=== PATIENT | male | born 1945 | race Caucasian/White ===

== ENCOUNTER 2020-07-23 13:30 | Outpatient (RCR) | payer MEDICARE, OTHER, SELFPAY ==
[2020-05-01 12:36] VITALS: BP 138/60; PULSE 72; RESP 16; TEMP 36.3; O2SAT 97
--- NOTE | 2020-05-26 10:17 | PCCPR ---
ABSENT TODAY FOR MD APPOINTMENT
--- NOTE | 2020-06-19 18:19 | PCCPR ---
Absent-had to take to doctors appt in [facility]
== END 2020-07-23 18:50 | disposition home or self-care (01) ==
LOC: ANHCPREHAB 13:30
PROVIDERS: PCP Internal Medicine
DX: Z95.1 Presence of aortocoronary bypass graft (principal); I50.89 Other heart failure
CPT/HCPCS: 93798

== ENCOUNTER → 2021-06-24 11:32 | Outpatient (CLI) | payer MEDICARE, OTHER, SELFPAY ==
--- NOTE | ~2021-06-24 | XR_ITS ---
EXAMINATION: XR mandible min 4V EXAM DATE: 06/24/2021 11:54 INDICATION: R68.84 - Jaw pain left side, fall . Initial encounter. TECHNIQUE: Frontal, steep frontal, bilateral oblique projections of the mandible. There is no prior study for comparison. FINDINGS: There are no acute mandible fractures or dislocations identified. There is no subcutaneous gas. The soft tissue is unremarkable. Dental hardware. IMPRESSION: No acute osseous findings. Reviewed, dictated and finalized at location B. IMPRESSION: No acute osseous findings.
--- NOTE | ~2021-06-24 | XR_ITS ---
EXAMINATION: XR knee RT min 4V DATE: 06/24/2021 11:54 INDICATION: Right knee pain. TECHNIQUE: 4 views of right knee were obtained. COMPARISON: None. FINDINGS: There is varus angulation at the knee. No fracture. There is moderate osteoarthritis of med ial compartment and mild osteoarthritis of lateral and patellofemoral compartments. There is a small knee joint effusion. There are surgical clips in the medial lower leg. IMPRESSION: 1. Moderate right knee osteoarthritis. 2. Small right knee joint effusion. Reviewed, dictated and finalized at location A.
== END ==
PROVIDERS: PCP Internal Medicine; Visit Provider Internal Medicine
DX: M17.11 Unilateral primary osteoarthritis, right knee (principal); R68.84 Jaw pain; M25.461 Effusion, right knee
CPT/HCPCS: 70110; 73564

== ENCOUNTER → 2022-03-16 12:20 | Outpatient (CLI) | payer MEDICARE, OTHER, SELFPAY ==
--- NOTE | ~2022-03-16 | XR_ITS ---
XR chest 2V DATE: 03/16/2022 12:43 INDICATION: Cough TECHNIQUE: PA and lateral views COMPARISON: 07/05/2019 PA and lateral chest FINDINGS: Status post sternotomy. Cardiomegaly. Aortic unfolding. Left-sided pacemaker device with leads overlying right atrium and coronary sinus. No hilar or mediastinal enlargement is evident. Bilateral hyperinflation. No pulmonary infiltrate or consolidation, pleural effusion or pulmonary vas cular congestion or pneumothorax is detected. Osteopenia. Degenerative spurring of the thoracic spine. IMPRESSION: Status post sternotomy Cardiomegaly Aortic unfolding Left-sided pacemaker device Bilateral hyperinflation Reviewed, dictated and finalized at location B.
== END ==
PROVIDERS: PCP Family Medicine; Visit Provider Family Medicine
DX: R05.9 Cough, unspecified (principal); I51.7 Cardiomegaly; Z95.0 Presence of cardiac pacemaker
CPT/HCPCS: 71046

== ENCOUNTER 2022-05-02 11:07 | Emergency (ER) | payer MEDICARE, OTHER, SELFPAY ==
[2022-05-02 11:16] VITALS: BP 116/87; PULSE 76; RESP 20; TEMP 36.8; O2SAT 99
--- NOTE | 2022-05-02 11:27 | ED.GENADULT ---
HPI - General Adult General Chief complaint: Upper Respiratory Infection Stated complaint: covid positive Source: patient Mode of arrival: ambulatory Limitations: no limitations History of Present Illness HPI narrative: Patient presents for evaluation of sick symptoms. He indicates he tested positive for COVID in [place] 2 days ago. He got on a flight and came home. Reports sore throat, cough, fatigue, body aches. No fever, chills, nausea, vomiting, diarrhea, shortness of breath. No recent sick contacts to his knowledge. He has never had COVID in the past. He has received COVID vaccination. He is not taking any medications to assist with his symptoms. He is requesting a script for Paxlovid. No additional complaints or concerns Related Data Home Medications Medication Instructions Recorded Confirmed potassium chloride 10 mEq 10 meq PO BID 01/28/20 04/12/22 tablet,extended release pravastatin 40 mg tablet 40 mg PO DAILY 01/28/20 04/12/22 digoxin 250 mcg (0.25 mg) tablet 250 mcg PO .every other day 03/31/20 04/12/22 mirabegron 25 mg tablet,extended 25 mg PO DAILY 06/23/21 04/12/22 release 24 hr (Myrbetriq) silodosin 4 mg capsule 4 mg PO DAILY 06/23/21 04/12/22 terbinafine HCl 250 mg tablet 250 mg PO DAILY 01/11/22 04/12/22 furosemide 20 mg tablet 20 mg PO QAM 03/16/22 04/12/22 Allergies Allergy/AdvReac Type Severity Reaction Status Date / Time No Known Allergies Allergy Verified 04/12/22 13:45 Review of Systems Review of Systems: CONSTITUTIONAL: Reports fatigue. Denies fever, chills, or sweats. EYES: Denies visual changes, redness, or discharge. ENT: Reports sore throat and congestion. Denies otalgia. CARDIOVASCULAR: Denies chest pain, palpitations, or edema. RESPIRATORY: Reports cough. Denies SOB. GASTROINTESTINAL: Denies abdominal pain, nausea, vomiting, or diarrhea. GENITOURINARY: Denies dysuria or hematuria. SKIN: Denies rash or itching. MUSCULOSKELETAL:Reports generalized body aches NEUROLOGIC: Denies headache, numbness, dizziness, or weakness. PSYCHIATRIC: Denies anxiety or depression. [facility] Past Medical History Medical History Adverse effect of lovastatin Arthritis Atrial fibrillation, transient Benign essential hypertension Benign non-nodular prostatic hyperplasia with lower urinary tract symptoms BPH loc w urin obs/LUTS Bruising Cardiac defibrillator in place Cardiomyopathy, unspecified Carpal tunnel syndrome of right wrist Closed fracture of multiple ribs of left side with routine healing Closed fracture of transverse process of axis COPD (chronic obstructive pulmonary disease) Depression Depression with anxiety Dysthymic Enlarged prostate without lower urinary tract symptoms (luts) Gait disturbance Hearing loss Knee effusion, right 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 Memory loss Myofascial muscle pain Non-sustained ventricular tachycardia JESSICA (obstructive sleep apnea) Other and unspecified hyperlipidemia Pacemaker Right knee DJD Right knee pain Right shoulder pain Short-term memory loss Sleep disorder breathing SOB (shortness of breath) on exertion Stage 3a chronic kidney disease Status post pneumothorax Syncope Urinary frequency Urinary hesitancy Weakness of distal arms and legs Weight gain Wheezing Surgical History Surgical History History of open heart surgery History of quadruple bypass October of 2019 Family History Family History Mother Depression Cancer Sibling Family history of gastrointestinal disorder Depression Acute myocardial infarction Cancer Father Cerebrovascular accident Heart disease Other Arthritis Hypertension Social History Social History Smoking status: Former smoker [place]
== END 2022-05-02 11:31 | disposition home or self-care (01) ==
PROVIDERS: Emergency Provider Nurse Practitioner; PCP Family Medicine
DX: U07.1 COVID-19 (principal); I10 Essential (primary) hypertension; Z95.810 Presence of automatic (implantable) cardiac defibrillator; J44.9 Chronic obstructive pulmonary disease, unspecified; Z79.01 Long term (current) use of anticoagulants; G47.33 Obstructive sleep apnea (adult) (pediatric)
CPT/HCPCS: 99213; G0463

== ENCOUNTER 2022-05-25 12:54 | Outpatient (CLI) | payer MEDICARE, OTHER, SELFPAY ==
--- NOTE | ~2022-05-25 | XR_ITS ---
EXAMINATION: [id number] DATE: 05/25/2022 13:29 INDICATION: Pleurodynia. Previous broken ribs. TECHNIQUE: A frontal inspiratory view of the chest and 3 views of the left ribs were obtained. COMPARISON: Chest radiograph dated 03/16/2022 FINDINGS: Again seen are multiple old left-sided rib fractures. No definitively new or acute appearing rib frac tures identified. Unchanged stenting along the left hemidiaphragm and mild left basilar opacities and favor atelectasis/scarring over pneumonia. Right lung remains clear. Heart size is normal. Median st ernotomy wires and mediastinal surgical clips are seen, likely from prior coronary artery bypass ivana ting. There is also unchanged left atrial appendage occlusion clip. Dual lead pacemaker/AICD seen wit h leads projecting over the expected locations of the apex of the right ventricle and overlying the l eft ventricle likely having traversed the coronary sinus. IMPRESSION: 1. Redemonstration of multiple chronic left rib fractures. No acute rib fractures identified. 2. Unchanged mild opacities at the left lower lung zone and favor atelectasis/scarring over pneumonia . Reviewed, dictated and finalized at location A. IMPRESSION: 1. Redemonstration of multiple chronic left rib fractures. No acute rib fractur es identified. 2. Unchanged mild opacities at the left lower lung zone and favor atelectasis/s carring over pneumonia.
--- NOTE | ~2022-05-25 | XR_ITS ---
XR thoracic spine 3V 05/25/2022 13:28 Indication: Back pain. Previous spine fracture. Procedure: 3 views thoracic spine. Comparison: No prior studies for comparison. Findings: Vertebral body heights are maintained. There is normal alignment. There are median sternoto my wires. Pacemaker leads are present. There is multilevel disc degenerative disc disease. No paraspi nal soft tissue abnormality. Cardiomegaly. There is focal saccular appearance to the posterior heart margin on the lateral view. Impression: 1: Moderate thoracic spondylosis. No acute abnormality identified. 2: Unusual appearance to the posterior margin of the heart on the lateral view. Consider correlation with CT. Reviewed, dictated and finalized at location B. Impression: 1: Moderate thoracic spondylosis. No acute abnormality identified. 2: Unusual appearance to the posterior margin of the heart on the lateral view. Consider correlation with CT.
== END 2022-05-25 12:55 | disposition home or self-care (01) ==
PROVIDERS: PCP Family Medicine; Visit Provider Family Medicine
DX: R07.81 Pleurodynia (principal); M54.9 Dorsalgia, unspecified; M47.814 Spondylosis without myelopathy or radiculopathy, thoracic region
CPT/HCPCS: 71101; 72072

== ENCOUNTER 2022-12-06 07:56 | Outpatient (CLI) | payer MEDICARE, OTHER, SELFPAY ==
--- NOTE | ~2022-12-06 | CT_ITS ---
CT of the Abdomen and Pelvis: Indication: Abdominal distention Technique: 2.5 mm axial scans were obtained through the abdomen and pelvis following intravenous adm inistration of 100 cc of Omnipaque 350. Dose reduction technique was used on this scan by utilizing a utomated exposure control and iterative reconstruction technique. The dose-length product (DLP) was 4 59.96 mGy-cm. Findings: Scans through the lung bases demonstrate cardiomegaly with pacemaker device. There is mild bibasilar pleural scarring. Small to moderate hiatal hernia noted. Small hepatic cysts are present. There are probable 2 small cystic-appearing lesions in the pancreati c body/tail. The spleen, gallbladder, adrenals and kidneys are within normal limits. There are athero sclerotic calcifications of the aorta. No lymphadenopathy. No bowel obstruction or bowel wall thickening. There is no evidence to suggest acute appendicitis. Images through the pelvis were performed. Urinary bladder unremarkable. Prostate gland is markedly en larged. Trace pelvic ascites. Impression: Trace pelvic ascites, uncertain etiology. Markedly enlarged prostate gland. 2 small probable cystic lesions in the pancreas. Consider follow-up exam in 6-12 months. Cardiomegaly with pacemaker device. [id number] hiatal hernia. Reviewed, dictated and finalized at location . Impression: Trace pelvic ascites, uncertain etiology. Markedly enlarged prostate gland. 2 small probable cystic lesions in the pancreas. Consider follow-up exam in 6-1 2 months. Cardiomegaly with pacemaker device. Yvxez-ba-txhbxzht hiatal hernia.
[2022-12-06 08:21] LABS: Estimated Glomerular Filt Rate 58
== END 2022-12-06 07:57 | disposition home or self-care (01) ==
PROVIDERS: PCP Internal Medicine; Visit Provider Nurse Practitioner
DX: R10.84 Generalized abdominal pain (principal); R14.0 Abdominal distension (gaseous); N40.0 Benign prostatic hyperplasia without lower urinary tract symptoms; I51.7 Cardiomegaly; K44.9 Diaphragmatic hernia without obstruction or gangrene; K86.9 Disease of pancreas, unspecified
CPT/HCPCS: 74177; Q9967

== ENCOUNTER 2023-01-13 01:01 | Day surgery (SDC) | payer MEDICARE, OTHER, SELFPAY ==
[2022-12-07 13:47] VITALS: BMI 25.1
[2022-12-29 13:29] VITALS: BMI 25.1
--- NOTE | 2023-01-12 14:10 | PM.HPGS ---
History of Present Illness History of Present Illness Consent: Risks, benefits, and alternatives have been discussed and questions answered. Patient agrees to proceed with procedure. Chief complaint: hx colon polyps Narrative: Winston Valles is a 77 year old male referred for colon cancer screening. He had adenomatous polyps removed at that time his last 2 colonoscopies, 1 in 2012 and Again in 2018 Review of Systems Review of Systems: All systems reviewed & are unremarkable except as noted in HPI and below PMFSH Past Medical History Medical History Adverse effect of lovastatin Arthritis Atrial fibrillation, transient Benign essential hypertension Benign non-nodular prostatic hyperplasia with lower urinary tract symptoms BPH loc w urin obs/LUTS Bruising Cardiac defibrillator in place Cardiomyopathy, unspecified Carpal tunnel syndrome of right wrist Closed fracture of multiple ribs of left side with routine healing Closed fracture of transverse process of axis COPD (chronic obstructive pulmonary disease) Depression Depression with anxiety Dysthymic Enlarged prostate without lower urinary tract symptoms (luts) Gait disturbance Hearing loss Knee effusion, right Left flank pain half-way current use of anticoagulant Memory loss Myofascial muscle pain Non-sustained ventricular tachycardia JESSICA (obstructive sleep apnea) Other and unspecified hyperlipidemia Pacemaker Right knee DJD Right knee pain Right shoulder pain Short-term memory loss Sleep disorder breathing SOB (shortness of breath) on exertion Stage 3a chronic kidney disease Status post pneumothorax Syncope Urinary frequency Urinary hesitancy Weakness of distal arms and legs Weight gain Wheezing Surgical History Surgical History History of open heart surgery History of quadruple bypass October of 2019 Family History Family History Mother Depression Cancer Sibling Family history of gastrointestinal disorder Depression Acute myocardial infarction Cancer Father Cerebrovascular accident Heart disease Other Arthritis Hypertension Social History Social History Smoking status: Former smoker Tobacco type: cigarettes Second hand tobacco smoke exposure: No Smoking end date: 08/29/79 Alcohol intake: current Alcohol use details: rarely Substance use type: does not use Living arrangements: with family Gender identity (if verbalized by the patient): Male Spiritual care concerns: No Meds Home Medications and Allergies Home Medications Medication Instructions Recorded Confirmed Type potassium chloride 10 mEq 10 meq PO BID 01/28/20 12/29/22 History tablet,extended release pravastatin 40 mg tablet 40 mg PO DAILY 01/28/20 12/29/22 History digoxin 250 mcg (0.25 mg) tablet 250 mcg PO 3XW 03/31/20 12/29/22 History silodosin 4 mg capsule 4 mg PO DAILY 06/23/21 12/29/22 History terbinafine HCl 250 mg tablet 250 mg PO DIRECTED 01/11/22 12/29/22 History furosemide 20 mg tablet 20 mg PO QAM 03/16/22 12/29/22 History aspirin 81 mg tablet 81 mg PO DAILY 12/07/22 12/29/22 History cetirizine 10 mg tablet (Zyrtec) 10 mg PO DAILY 12/07/22 12/29/22 History ferrous sulfate 325 mg (65 mg 325 mg PO DAILY 12/07/22 12/29/22 History iron) tablet fluticasone fur. 200 mcg-umeclid 1 inh inhalation DAILY 12/07/22 12/29/22 History 62.5 mcg-vilant 25 mcg inhalat.powder (Trelegy Ellipta) multivitamin with minerals-folic 1 tablet PO DAILY 12/07/22 12/29/22 History acid 0.4 mg tablet vibegron 75 mg tablet (Gemtesa) 75 mg PO DAILY 12/07/22 12/29/22 History losartan 25 mg tablet 25 mg PO DAILY #90 tabs 12/29/22 12/29/22 Rx Allergies Allergy/AdvReac Type Severity Reaction Status Date / Time No Known Allergies All
[2023-01-13 06:45] VITALS: BP 123/81; PULSE 69; RESP 20; TEMP 36.2; O2SAT 98
[2023-01-13] MEDS: LACTATED RINGERS 1,000 ML 150 ML IV CONT (06:58)
--- NOTE | 2023-01-13 07:51 | WPDANESEPPF ---
Anes - Initial Pre Proc Eval Procedure: Operation Date: 01/13/23 08:00 Proposed Procedures p Colonoscopy - Ryland Martinez MD Date/Time: 01/13/23 07:51 Surgeon: Ryland Martinez MD Pre Op Diagnosis: hx colon polyps Patient Data Age: 77 Gender: M Height: 1.78 m Weight: 77.1 kg Last Vital Signs Temp 97.1 F L 01/13/23 06:45 Pulse 69 01/13/23 06:45 Resp 20 01/13/23 06:45 BP 123/81 01/13/23 06:45 Pulse Ox 98 01/13/23 06:45 O2 Del Method Room Air 01/13/23 06:45 Allergies Allergy/AdvReac Type Severity Reaction Status Date / Time No Known Allergies Allergy Verified 01/13/23 06:42 Home Medications Medication Instructions Recorded Confirmed Type potassium chloride 10 mEq 10 meq PO BID 01/28/20 12/29/22 History tablet,extended release pravastatin 40 mg tablet 40 mg PO DAILY 01/28/20 12/29/22 History digoxin 250 mcg (0.25 mg) tablet 250 mcg PO 3XW 03/31/20 12/29/22 History silodosin 4 mg capsule 4 mg PO DAILY 06/23/21 12/29/22 History terbinafine HCl 250 mg tablet 250 mg PO DIRECTED 01/11/22 12/29/22 History furosemide 20 mg tablet 20 mg PO QAM 03/16/22 12/29/22 History aspirin 81 mg tablet 81 mg PO DAILY 12/07/22 12/29/22 History cetirizine 10 mg tablet (Zyrtec) 10 mg PO DAILY 12/07/22 12/29/22 History ferrous sulfate 325 mg (65 mg 325 mg PO DAILY 12/07/22 12/29/22 History iron) tablet fluticasone fur. 200 mcg-umeclid 1 inh inhalation DAILY 12/07/22 12/29/22 History 62.5 mcg-vilant 25 mcg inhalat.powder (Trelegy Ellipta) multivitamin with minerals-folic 1 tablet PO DAILY 12/07/22 12/29/22 History acid 0.4 mg tablet vibegron 75 mg tablet (Gemtesa) 75 mg PO DAILY 12/07/22 12/29/22 History losartan 25 mg tablet 25 mg PO DAILY #90 tabs 12/29/22 12/29/22 Rx Patient hx anesthesia problems: none Family hx anesthesia problems: none Results Review: All pre-operative results and documents have been reviewed as part of the pre-operative evaluation. [facility] Past Medical History Medical History Adverse effect of lovastatin Arthritis Atrial fibrillation, transient Benign essential hypertension Benign non-nodular prostatic hyperplasia with lower urinary tract symptoms BPH loc w urin obs/LUTS Bruising Cardiac defibrillator in place Cardiomyopathy, unspecified Carpal tunnel syndrome of right wrist Closed fracture of multiple ribs of left side with routine healing Closed fracture of transverse process of axis COPD (chronic obstructive pulmonary disease) Depression Depression with anxiety Dysthymic Enlarged prostate without lower urinary tract symptoms (luts) Gait disturbance Hearing loss Knee effusion, right 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 Memory loss Myofascial muscle pain Non-sustained ventricular tachycardia JESSICA (obstructive sleep apnea) Other and unspecified hyperlipidemia Pacemaker Right knee DJD Right knee pain Right shoulder pain Short-term memory loss Sleep disorder breathing SOB (shortness of breath) on exertion Stage 3a chronic kidney disease Status post pneumothorax Syncope Urinary frequency Urinary hesitancy Weakness of distal arms and legs Weight gain Wheezing Surgical History Surgical History History of open heart surgery History of quadruple bypass October of 2019 Family History Family History Mother Depression Cancer Sibling Family history of gastrointestinal disorder Depression Acute myocardial infarction Cancer Father Cerebrovascular accident Heart disease Other Arthritis Hypertension Social History Social History Smoking status: Former smoker Tobacco type: cigarettes Second hand tobacco smoke exposure: No Smoking end date: 08/29/79 Alcohol intake: current Alcohol use deta
[2023-01-13 08:16] VITALS: BP 98/61; PULSE 60; RESP 20; O2SAT 98
[2023-01-13 08:26] VITALS: BP 94/64; PULSE 62; RESP 18; O2SAT 98
[2023-01-13 08:36] VITALS: BP 101/70; PULSE 60; RESP 18; O2SAT 98
== END 2023-01-13 08:46 | disposition home or self-care (01) ==
PROVIDERS: PCP Internal Medicine; Visit Provider Internal Medicine Gastroenterology
PROC: 0DJD8ZZ Inspection of Lower Intestinal Tract, Via Natural or Artificial Opening Endoscopic (ICD-10-PCS; CPT 45378; principal; 2023-01-13 08:00)
DX: Z12.11 Encounter for screening for malignant neoplasm of colon (principal); Z86.010 Personal history of colon polyps; K57.30 Diverticulosis of large intestine without perforation or abscess without bleeding; K64.8 Other hemorrhoids; I48.20 Chronic atrial fibrillation, unspecified; I42.9 Cardiomyopathy, unspecified; I12.9 Hypertensive chronic kidney disease with stage 1 through stage 4 chronic kidney disease, or unspecified chronic kidney disease; N18.31 Chronic kidney disease, stage 3a; J44.9 Chronic obstructive pulmonary disease, unspecified; M17.11 Unilateral primary osteoarthritis, right knee; G47.33 Obstructive sleep apnea (adult) (pediatric); F41.9 Anxiety disorder, unspecified; F32.A Depression, unspecified; Z95.1 Presence of aortocoronary bypass graft; Z79.01 Long term (current) use of anticoagulants; Z95.810 Presence of automatic (implantable) cardiac defibrillator; Z87.891 Personal history of nicotine dependence; Z79.82 Long term (current) use of aspirin
CPT/HCPCS: G0105; J2704; J7120

== ENCOUNTER 2024-02-09 14:10 | Outpatient (CLI) | payer MEDICARE, OTHER, SELFPAY ==
--- NOTE | ~2024-02-09 | XR_ITS ---
Right Knee Technique: AP, lateral, and sunrise views were obtained. Clinical History: Pain Findings: No fracture or dislocation is seen. There is medial compartment narrowing. There is moderat e tricompartmental osteophyte formation.. Vascular calcifications are present. No joint effusion is s een. Impression: Moderate tricompartmental degenerative change, with significant medial compartment narrowing. Reviewed, dictated and finalized at location M. Impression: Moderate tricompartmental degenerative change, with significant medial compartm ent narrowing.
--- NOTE | ~2024-02-09 | XR_ITS ---
Left Knee Technique: AP, lateral, and sunrise views were obtained. Clinical History: Pain Findings: No fracture or dislocation is seen. Osseous alignment is anatomic. No degenerative change o f the patellofemoral compartment noted. Soft tissues are unremarkable. No joint effusion is seen. Impression: Minimal degenerative change of the patellofemoral compartment. Reviewed, dictated and finalized at location . Impression: Minimal degenerative change of the patellofemoral compartment.
== END 2024-02-09 14:11 | disposition home or self-care (01) ==
PROVIDERS: PCP Internal Medicine; Visit Provider Nurse Practitioner
DX: M25.561 Pain in right knee (principal); M25.562 Pain in left knee; R93.6 Abnormal findings on diagnostic imaging of limbs
CPT/HCPCS: 73562

== ENCOUNTER 2024-05-14 14:31 | Outpatient (CLI) | payer MEDICARE, OTHER, SELFPAY ==
[2024-05-14 18:27] LABS: Basophils Percent Auto 0.4 % (0.2-1.2); Eosinophils Percent Auto 0.7 % (0-4.4); Hematocrit 40.6 % (42.0-52.0); Hemoglobin 12.9 g/dL (14.0-18.0); Immature Granulocyte Absolute 0.01 K/mm3 (0.00-0.031); Immature Granulocyte Percent A 0.2 % (0-0.5); Lymphocytes Absolute Auto 0.83 K/mm3 (0.9-3.2); Lymphocytes Percent Auto 14.9 % (18.3-44.2); Mean Corpuscular HGB Conc 31.8 g/dl (32-36); Mean Corpuscular Hemoglobin 30.5 pg (26-34); Monocytes Absolute Auto 0.6 K/mm3 (0.1-0.6); Monocytes Percent Auto 10.1 % (2.6-8.5); Neutrophils Absolute Auto 4.1 K/mm3 (1.3-6.7); Neutrophils Percent Auto 73.7 % (45.5-73.1); Platelet Count Result 142 k/mm3 (150-375); Red Blood Count 4.23 M/mm3 (4.6-6.20); Red Cell Distribution Width 14.1 % (11.5-14.5); White Blood Count 5.6 K/mm3 (4.5-10.0)
[2024-05-14 18:58] LABS: Alanine Aminotransferase 30 U/L (6-50); Albumin Level 4.1 g/dL (3.5-5.1); Alkaline Phosphatase 63 U/L (38-126); Anion Gap 7 mmol/L (4-12); Aspartate Amino Transferase 43 U/L (17-59); Bilirubin,Total 0.7 mg/dL (0.2-1.3); Blood Urea Nitrogen 50 mg/dL (9-20); Carbon Dioxide 33 mmol/L (22-30); Chloride 99 mmol/L (98-107); Cholesterol 118 mg/dL (0-200); Estimated Glomerular Filt Rate 45; Glucose 94 mg/dL (65-110); HDL Direct 38 mg/dL; Potassium 3.9 mmol/L (3.4-5.0); Sodium 139 mmol/L (137-145); Triglycerides 141 mg/dL (<150)
[2024-05-14 19:09] LABS: LDL Cholesterol Direct 59 mg/dL
== END 2024-05-14 14:32 | disposition home or self-care (01) ==
LOC: ANHGOSHLAB 14:34
PROVIDERS: PCP Internal Medicine
DX: E70.0 Classical phenylketonuria (principal); I10 Essential (primary) hypertension; I25.10 Atherosclerotic heart disease of native coronary artery without angina pectoris; I25.5 Ischemic cardiomyopathy; I47.29 Other ventricular tachycardia; I48.21 Permanent atrial fibrillation; I50.23 Acute on chronic systolic (congestive) heart failure; R55 Syncope and collapse; I08.3 Combined rheumatic disorders of mitral, aortic and tricuspid valves
CPT/HCPCS: 36415; 80053; 80061; 85025

== ENCOUNTER 2024-06-11 10:45 | Outpatient (CLI) | payer MEDICARE, OTHER, SELFPAY ==
[2024-06-11 14:45] LABS: NT Pro B Type Natriuretic Pept 4610 pg/mL (19.9-100)
[2024-06-11 14:46] LABS: Anion Gap 6 mmol/L (4-12); Blood Urea Nitrogen 36 mg/dL (9-20); Calcium 9.1 mg/dL (8.4-10.2); Carbon Dioxide 29 mmol/L (22-30); Chloride 104 mmol/L (98-107); Estimated Glomerular Filt Rate 49; Glucose 91 mg/dL (65-110); Potassium 4.9 mmol/L (3.4-5.0); Sodium 139 mmol/L (137-145)
== END 2024-06-11 10:46 | disposition home or self-care (01) ==
PROVIDERS: PCP Internal Medicine
DX: E78.00 Pure hypercholesterolemia, unspecified (principal); I11.0 Hypertensive heart disease with heart failure; I50.22 Chronic systolic (congestive) heart failure; I25.10 Atherosclerotic heart disease of native coronary artery without angina pectoris; I35.1 Nonrheumatic aortic (valve) insufficiency; I36.1 Nonrheumatic tricuspid (valve) insufficiency; I47.29 Other ventricular tachycardia; I48.21 Permanent atrial fibrillation; R55 Syncope and collapse
CPT/HCPCS: 36415; 80048; 83880

== ENCOUNTER 2024-06-25 10:18 | Outpatient (CLI) | payer MEDICARE, OTHER, SELFPAY ==
[2024-06-25 14:58] LABS: Creatinine Urine 98.4 mg/dL
[2024-06-25 15:22] LABS: Albumin Level 4.2 g/dL (3.5-5.1); Anion Gap 7 mmol/L (4-12); Blood Urea Nitrogen 45 mg/dL (9-20); Calcium 9.2 mg/dL (8.4-10.2); Carbon Dioxide 29 mmol/L (22-30); Chloride 104 mmol/L (98-107); Estimated Glomerular Filt Rate 53; Glucose 90 mg/dL (65-110); Phosphorus 3.4 mg/dL (2.5-4.5); Potassium 4.9 mmol/L (3.4-5.0); Sodium 140 mmol/L (137-145)
[2024-06-25 15:35] LABS: Total Protein Urine Random < 5 mg/dL; Ur Ttl Prot Creatinine Ratio < 0.05 mg/mg (0-0.20)
[2024-06-25 15:54] LABS: Complement C3 90 mg/dL (88-165)
[2024-06-27 01:58] LABS: Creatinine, Random Urine 92 mg/dL (20-320); Total Prot/Creat ratio mg/mg 0.217 (0.025-0.148); Total Protein/Creatinine Ratio 217 mg/g creat (25-148)
[2024-06-27 03:24] LABS: Protein, Total 6.2 g/dL (6.1-8.1)
[2024-06-28 08:13] LABS: Alpha 1 Globulin 0.3 g/dL (0.2-0.3); Alpha 2 Globulin 0.6 g/dL (0.5-0.9); Beta 1 Globulin 0.4 g/dL (0.4-0.6); Gamma Globulin 0.6 g/dL (0.8-1.7)
[2024-06-29 15:14] LABS: ANCA Screen NEGATIVE (NEGATIVE)
== END 2024-06-25 10:19 | disposition home or self-care (01) ==
PROVIDERS: PCP Internal Medicine; Visit Provider Internal Medicine Nephrology
DX: I12.9 Hypertensive chronic kidney disease with stage 1 through stage 4 chronic kidney disease, or unspecified chronic kidney disease (principal); N18.32 Chronic kidney disease, stage 3b
CPT/HCPCS: 36415; 80069; 82570; 83520; 84155; 84156; 84165; 84166; 86036; 86038; 86039; 86160; 86225

== ENCOUNTER 2024-06-26 11:43 | Outpatient (CLI) | payer MEDICARE, OTHER, SELFPAY ==
--- NOTE | ~2024-06-26 | US_ITS ---
Renal-Bladder ultrasound Clinical History: Chronic kidney disease Technique: Real-time sonographic imaging of the kidneys and urinary bladder was performed. Findings: The right kidney measures 10.0 cm in length and the left kidney measures 10.0 cm. There is no hydronephrosis or renal calculus identified. Renal cortical echogenicity is within normal limits. Small left renal cyst present. The urinary bladder is minimally distended at the time of this exam. No intraluminal echoes are ident ified. No abnormal wall thickening is seen. Impression: No significant abnormality. Reviewed, dictated and finalized at location . Impression: No significant abnormality.
== END 2024-06-26 11:44 | disposition home or self-care (01) ==
PROVIDERS: PCP Internal Medicine Nephrology; Visit Provider Internal Medicine Nephrology
DX: N18.32 Chronic kidney disease, stage 3b (principal)
CPT/HCPCS: 76775

== ENCOUNTER 2024-07-06 15:05 | Outpatient (CLI) | payer MEDICARE, OTHER, SELFPAY ==
--- NOTE | ~2024-07-06 | CT_ITS ---
Non-contrast CT scan of the Abdomen and Pelvis Clinical indication: BPH Technique: 2.5 mm axial scans were obtained through the abdomen and pelvis without intravenous or or al contrast. Dose reduction technique was used on this scan by utilizing automated exposure control a nd iterative reconstruction technique. The dose-length product (DLP) was 418.43 mGy-cm. COMPARISON: 12/06/2022 Findings: Images through the lung bases reveal probable cardiomegaly. Small hiatal hernia. There is no evidence of renal or ureteral calculi. The kidneys and the ureters are nondilated. The liver, spleen, pancreas, gallbladder, and adrenals appear normal. There are atherosclerotic calci fications of the aorta. Infrarenal abdominal aorta measures up to 3 cm in maximum diameter. There is no evidence of bowel obstruction. Images through the pelvis were performed. There is no evidence of ascites or lymphadenopathy. Urinary bladder unremarkable. Prostate gland is enlarged, and indents the bladder base. There is degenerativ e spondylosis throughout the lumbar spine. Impression: Enlarged prostate gland. Infrarenal abdominal aorta measures up to 3 cm in diameter. Small hiatal hernia. Reviewed, dictated and finalized at [facility]. FILLER Impression: Enlarged prostate gland. Infrarenal abdominal aorta measures up to 3 cm in diameter. Small hiatal hernia.
== END 2024-07-06 15:06 | disposition home or self-care (01) ==
PROVIDERS: PCP Internal Medicine; Visit Provider Urology
DX: N40.1 Benign prostatic hyperplasia with lower urinary tract symptoms (principal)
CPT/HCPCS: 74176

== ENCOUNTER 2024-08-09 11:23 | Outpatient (CLI) | payer MEDICARE, OTHER, SELFPAY ==
[2024-08-09 13:55] LABS: Free T4 Free Thyroxine 1.11 ng/dL (0.78-2.19)
[2024-08-10 07:25] LABS: HCG Tumor Marker <5 mIU/mL (<5); LH 4.1 mIU/mL (1.6-15.2); Progesterone <0.5 ng/mL (<1.4)
[2024-08-15 00:37] LABS: Estrogen 118 pg/mL (< OR = 404)
[2024-08-15 12:38] LABS: Testosterone Free 44.4 pg/mL (30.0-135.0); Testosterone Total 300 ng/dL (250-1100)
== END 2024-08-09 11:24 | disposition home or self-care (01) ==
PROVIDERS: PCP Internal Medicine; Visit Provider Nurse Practitioner
DX: N62 Hypertrophy of breast (principal); N64.4 Mastodynia
CPT/HCPCS: 36415; 82672; 83002; 84144; 84402; 84403; 84439; 84443; 84702

== ENCOUNTER 2024-10-30 15:26 | Outpatient (CLI) | payer MEDICARE, OTHER, SELFPAY ==
[2024-10-30 18:56] LABS: Albumin Level 4.6 g/dL (3.5-5.1); Anion Gap 9 mmol/L (4-12); Blood Urea Nitrogen 44 mg/dL (9-20); Calcium 9.4 mg/dL (8.4-10.2); Carbon Dioxide 32 mmol/L (22-30); Chloride 95 mmol/L (98-107); Estimated Glomerular Filt Rate 47; Glucose 129 mg/dL (65-110); Phosphorus 4.3 mg/dL (2.5-4.5); Potassium 4.6 mmol/L (3.4-5.0); Sodium 136 mmol/L (137-145)
[2024-10-30 18:57] LABS: Creatinine Urine 16.9 mg/dL; Total Protein Urine Random 10 mg/dL; Ur Ttl Prot Creatinine Ratio 0.59 mg/mg (0-0.20)
[2024-10-30 19:04] LABS: Parathyroid Intact 147.6 pg/mL (14.5-75.2)
[2024-10-30 19:40] LABS: Vitamin D 25 Hydroxy 65.5 ng/mL
== END 2024-10-30 15:27 | disposition home or self-care (01) ==
LOC: ANHGOSHLAB 15:28
PROVIDERS: PCP Internal Medicine; Visit Provider Internal Medicine Nephrology
DX: I12.9 Hypertensive chronic kidney disease with stage 1 through stage 4 chronic kidney disease, or unspecified chronic kidney disease (principal); N18.31 Chronic kidney disease, stage 3a; N25.81 Secondary hyperparathyroidism of renal origin; E55.9 Vitamin D deficiency, unspecified
CPT/HCPCS: 36415; 80069; 82306; 82570; 83970; 84156

== ENCOUNTER 2025-02-20 12:33 | Outpatient (CLI) | payer MEDICARE, OTHER, SELFPAY ==
[2025-02-20 19:16] LABS: Anion Gap 9 mmol/L (4-12); Blood Urea Nitrogen 38 mg/dL (9-20); Calcium 9.1 mg/dL (8.4-10.2); Carbon Dioxide 26 mmol/L (22-30); Chloride 102 mmol/L (98-107); Estimated Glomerular Filt Rate 50; Glucose 124 mg/dL (65-110); Potassium 4.8 mmol/L (3.4-5.0); Sodium 137 mmol/L (137-145)
[2025-02-20 19:32] LABS: Total Protein Urine Random 7 mg/dL; Ur Ttl Prot Creatinine Ratio 0.54 mg/mg (0-0.20)
[2025-02-20 19:43] LABS: Parathyroid Intact 78.3 pg/mL (14.5-75.2)
== END 2025-02-20 12:34 | disposition home or self-care (01) ==
LOC: ANHGOSHLAB 12:34
PROVIDERS: PCP Internal Medicine; Visit Provider Internal Medicine Nephrology
DX: I12.9 Hypertensive chronic kidney disease with stage 1 through stage 4 chronic kidney disease, or unspecified chronic kidney disease (principal); N18.31 Chronic kidney disease, stage 3a; N25.81 Secondary hyperparathyroidism of renal origin
CPT/HCPCS: 36415; 80069; 82570; 83970; 84156

== ENCOUNTER 2025-03-05 15:33 | Outpatient (CLI) | payer MEDICARE, OTHER, SELFPAY ==
--- NOTE | ~2025-03-05 | US_ITS ---
EXAM: RENAL ULTRASOUND HISTORY: I12.9 - Hypertensive chronic kidney disease with stage 1 ... COMPARISON: 06/26/20[address] examination of the abdomen and pelvis dated 07/06/2024 FINDINGS: RIGHT KIDNEY: 9.7 x 4.2 x 5.1 cm. The parenchyma of the right kidney is increased in echogenicity and thin in caliber. No hydronephrosis or renal calculi. LEFT KIDNEY: 10.3 x 6.4 x 5.2 cm No hydronephrosis or renal calculi. The parenchyma of the left kidney is increased in echogenicity and thin in caliber. BLADDER: The prostate gland is markedly enlarged extending into the base of the bladder, consistent w ith patient's known BPH history. No additional diagnostic bladder images were obtained IMPRESSION: No hydronephrosis or renal calculi. Findings suggesting medical renal disease. Findings consistent with patient's known prostatic hyperplasia, as detailed above Reviewed, dictated and finalized at location A. IMPRESSION: No hydronephrosis or renal calculi. Findings suggesting medical renal disease. Findings consistent with patient's known prostatic hyperplasia, as detailed abo ve
== END 2025-03-05 15:34 | disposition home or self-care (01) ==
LOC: MICIMG 15:37
PROVIDERS: PCP Internal Medicine; Visit Provider Internal Medicine Nephrology
DX: I12.9 Hypertensive chronic kidney disease with stage 1 through stage 4 chronic kidney disease, or unspecified chronic kidney disease (principal); N18.31 Chronic kidney disease, stage 3a; N25.81 Secondary hyperparathyroidism of renal origin; E55.9 Vitamin D deficiency, unspecified; R10.9 Unspecified abdominal pain
CPT/HCPCS: 76775

== ENCOUNTER 2025-03-19 08:46 | Outpatient (CLI) | payer MEDICARE, OTHER, SELFPAY ==
--- OUTSIDE RECORDS SUMMARY | 2025-03-19 08:49 | XMS_ITS | Clinical Summary ---
Author Organization [facility] Address [address] [place] [address] Care Team Providers Care Rigging Helper Name Role Phone Octavio Downey MD Primary Care Provider + Octavio Downey MD Unavailable [phone] Cookie Voss MD Unavailable [phone] Fred Hussein MD Unavailable [phone] Allergies No known active allergies Medications furosemide (LASIX) 40 mg tablet Take 1 tablet (40 mg total) by mouth daily Active pravastatin (PRAVACHOL) 40 mg tablet Take 1 tablet (40 mg total) by mouth nightly Active multivitamin capsule Take 1 capsule by mouth daily Active ferrous sulfate 325 mg (65 mg of elemental iron) tabletIndicatio ns:Iron Deficiency Anemia Take 1 tablet (325 mg total) by mouth daily with breakfast Active silodosin (RAPAFLO) 4 mg capsule Take 1 capsule (4 mg total) by mouth nightly Active citalopram (CeleXA) 20 mg tablet Take 1 tablet (20 mg total) by mouth daily Active ipratropium-alb uteroL (DUO-NEB) 0.5-2.5 mg/3 mL nebulizer solution Take 3 mL by nebulization every 6 (six) hours as needed for wheezing or shortness of breath 3 Active albuterol HFA (PROVENTIL HFA,VENTOLIN HFA,PROAIR HFA) 90 mcg/actuation inhaler Inhale 2 puffs every 6 (six) hours as needed for wheezing Active aspirin 81 mg enteric coated tablet Take 1 tablet (81 mg total) by mouth daily 90 tablet 3 Active cetirizine (ZyrTEC) 10 mg tablet Take 1 tablet (10 mg total) by mouth daily as needed for allergies 30 tablet 3 Active midodrine (PROAMATINE) 10 mg tabletIndicatio ns:Symptomatic Orthostatic Hypotension Take 1 tablet (10 mg total) by mouth 2 (two) times a day after breakfast and lunch 60 tablet 3 Active bumetanide (BUMEX) 2 mg tablet Take 1 tablet (2 mg total) by mouth daily Active spironolactone (ALDACTONE) 25 mg tablet Take 1 tablet (25 mg total) by mouth daily Active dutasteride (AVODART) 0.5 mg capsule 1 capsule (0.5 mg total) 4 Active Active Problems Problem Noted Date Diagnosed Date Physical deconditioning 03/15/2023 COPD exacerbation 03/14/2023 Severe malnutrition 03/14/2023 Physical debility 03/14/2023 Moderate malnutrition 03/04/2023 Sepsis without acute organ dysfunction 3 Acute respiratory failure with hypoxia 3 Systolic congestive heart failure 03/03/2023 BPH (benign prostatic hyperplasia) 03/03/2023 Decreased mobility 03/03/2023 Depression 03/03/2023 Chronic atrial fibrillation 03/03/[address] 02/26/2020 Overview (03/03/2023): [facility] 3369-40Q [id number] Implanted 02/26/20 Dr Childs RV: [facility] 7122Q SN:[id number] 02/26/20 LV: [facility] 1458Q SN:[id number] 02/26/20 JESSICA (obstructive sleep apnea) 04/25/2019 Overview (03/03/2023): 03/16 sleep study: JESSICA Essential hypertension 06/07/2017 Pure hypercholesterolemia 06/07/2017 Overview (03/17/2018): Overview: 01/12 Cholesterol 163 HDL 47 LDL 100 triglyceride 79, normal CMP, on lovastatin 20 mg daily Resolved Problems Problem Noted Date Diagnosed Date Resolved Date Gait disorder 10/22/2020 03/03/2023 Abnormal EKG 06/08/2017 03/03/2023 Overview (03/17/2018): Overview: 06/14 EKG: SR at 68, RSR' in V1, T-wave inversions V1-V4, QT 420 Dilated cardiomyopathy 06/08/201703/03 Overview (03/17/2018): Overview: 06/14 Echo: EF 45%, basal septal/inferior HK, severe AXEL, moderate MR, mild- moderate TR, mild AI, RVSP 37 06/14 Stress nuclear 6:00--96% maximal heart rate, no ischemia, inferior attenuation (small/mild), EF 57%, exercise tolerance 100% predicted Nonrheumatic aortic valve insufficiency 06/08/2017 03/03/2023 Non-rheumatic mitral regurgitation 06/08/2017 03/03/2023 Nonsustained ventricular tachycardia 06/07/2017 03/03/2023 Overview (03/17/2018): Overview: 05/15 Holter x24 hrs: SR at 71, range 57-106, occasional PACs, rare PVCs, 12 beat VT at 120, slightly dizzy correlated with PVCs Syncope 06/07/2017 03/03/2023 Overview (03/17/2018): Overview: 1959 brief syncope on abrupt standing 2013 brief presyncope & fall on standing 05/15 brief presyncope & fall while walking up stairs in stands at [place] after 2 beers 06/14 Event recorder x 30 days: Baseline SR at 73 with PAC & PVC; no symptoms reported Encounters Date Type Department Care Team Description 01/16/2025 2:04 PM CDT - 01/16/2025 11:59 PM CDT Hospital Encounter [facility] Diagnostic Imaging [address] [place] [id number] Pulmonary emphysema, unspecified emphysema type (HCC) Discharge Disposition: Discharge to home or self care 12/20/2024 11:59 AM CDT - 12/20/2024 11:59 PM CDT Hospital Encounter [facility] Imaging and Radiology [address] [place] [address] Other nonspecific abnormal finding of lung field Discharge Disposition: Discharge to home or self care from Last 3 Months Surgical History Surgery Date Site/Laterality Comments AR UNLISTED PROCEDURE ABDOME N PERITONEUM & OMENTUM Hernia Repair - twice (Added by TW Conv) HERNIA REPAIR HEMORROIDECTOMY INSERT / REPLACE / REMOVE PACEMAKER Medical History Medical History Date Comments Personal history of other en docrine, nutritional and metabolic disease History of hyperlipi demia - (Added by TW Conv) Personal history of other di seases of the circulatory system History of hypertension - (A dded by TW Conv) Personal history of other en docrine, nutritional and metabolic disease History of high chol esterol - (Added by TW Conv) Hypertension Atrial fibrillation (HCC) COPD (chronic obstructive pu lmonary disease) (HCC) Depression Arthritis Cataract CHF (congestive heart failure) (HCC) Sleep apnea Dysphagia Family History Medical History Relation Name Comments Heart disease Father Family history of cardiac disorder - (Added by TW Conv) Hypertension Father Family history of hypertension - (Added by TW Conv) Arthritis Mother Family history of arthritis - (Added by TW Conv) Relation Name Status Comments Father Mother Social History Tobacco Use Types Packs/Day Years Used Date Smoking Tobacco: Former Smokeless Tobacco: Never Alcohol Use Standard Drinks/Week Comments No 0 (1 standard drink = 0.6 oz pur e alcohol) Social Connection and Isolat ion Panel [NHANES] Answer Date Recorded In a typical week, how many times do you talk on the phone with family, friends, or neighbors? More than three times a week 03/16/2023 How often do you get togethe r with friends or relatives? More than three times a week 03/16/2023 How often do you attend chur or yarsanism services? Never 03/16/2023 Do you belong to any clubs o r organizations such as anabaptism groups, unions, fraternal or athletic groups, or school groups? No 03/16/2023 Attends Club or Organization Meetings Not on angela e 03/16/2023 Are you , , di vorced, , never , or living with a partner? 03/16/2023 AUDIT-C Answer Date Recorded Q1: How often do you have a drink containing alcohol? Never 12/19/2023 Q2: How many drinks containi ng alcohol do you have on a typical day when you are drinking? Patient does not drink Q3: How often do you have si x or more drinks on one occasion? Never 12/19/2023 Overall Financial Resource Strain (CARDIA) Answe r Date Recorded How hard is it for you to pa y for the very basics like food, housing, medical care, and heating? Not hard at all 03/16/2023 PHQ-2 Answer Date Recorded Patient Health Questionnaire-2 Score 0 03/24/2023 Hunger Vital Sign Answer Date Recorded Within the past 12 months, y ou worried that your food would run out before you got the money to buy more. Never true 03/16/20 23 Within the past 12 months, t he food you bought just didn't last and you didn't have money to get more. Never true 03/16/2023 PRAPARE - Transportation Answer Date Re corded In the past 12 months, has l ack of transportation kept you from medical appointments or from getting medications? No 02/27 In the past 12 months, has l ack of transportation kept you from meetings, work, or from getting things needed for daily living? No 03/24/2023 Housing Stability Vital Sign Answer Ranjith e Recorded In the last 12 months, was t here a time when you were not able to pay the mortgage or rent on time? No 03/16/2023 In the last 12 months, how many places have you lived? 1 03/16/2023 In the last 12 months, was t here a time when you did not have a steady place to sleep or slept in a chcf (including now)? No 03/16/2023 Personal Safety Answer Date Recorded Have you ever been in or are you currently in a harmful physical or emotional relationship or is someone making you feel afraid or unsafe? Denies 12/19/2023 Sex and Gender Information Value Date Recorded Sex Assigned at Not on file Legal Sex Male 1:18 AM CHOCOLATE MOLDER Gender Identity Not on file Sexual Orientation Not on file Obstetrics History Last Filed Vital Signs Vital Sign Reading Time Taken Comments Blood Pressure 98/68 12/19/2023 11:33 AM CDT Pulse 62 12/19/2023 11:33 AM CDT Temperature 36.7 C (98.1 F) 09/09/2023 10:37 AM CHOCOLATE MOLDER Respiratory Rate 23 12/19/2023 11:33 AM CDT Oxygen Saturation 98% 12/19/2023 11:33 AM CDT Inhaled Oxygen Concentration - - Weight 74.8 kg (165 lb) 12/19/2023 10:09 AM CDT Height 177.8 cm (5' 10) 12/19/2023 10:09 AM CDT Body Mass Index 23.68 12/19/2023 10:09 AM CDT Plan of Treatment Health Maintenance Due Date Last Done Comments DTaP/Tdap/Td Vaccine (1 - Tdap) 1956 Hepatitis B Screening 1961 Well Visit 65+ 2008 Pneumococcal vaccine 65+ (2 of 2 - PCV) 10/27/2018 0 10/27/2017, 05/11/2010 Zoster Vaccine (2 of 2) 12/24/2018 10/29/2018 Depression Screening 03/14/2024 03/14/2023, 03/14/20 23 Covid-19 Vaccine ( season) 2024, 09/29/2020 Fall Risk Assessment 07/13/2024 07/13/2023 Influenza Vaccine (Season Ended) 2025 Abdominal Aortic Aneurysm (AAA) Screen Completed , 05/19/2019 Medical Devices Implanted Type Area Injury/Safety Hazard Assessment Device Identifier Shelf Expiration Date Model / Serial / Lot Pacemaker-02/10 Implanted:01/27 (Quantity not on file) Pacemaker Left: Chest Procedures Procedure Name Priority Date/Time Associated Diagnosis Comments XR CHEST PA LATERAL 2 VIEWS Schedule Routine, Read Routine (OP Routine) 01/16/2025 2:16 PM CDT Pulmonary emphysema, unspecified emphysema type (HCC) CT CHEST WO CONTRAST Schedule Routine, Read Routine (OP Routine) 12/20/2024 12:14 PM CDT Other nonspecific abnormal finding of lung field CT ABDOMEN PELVIS W CONTRAST ED 09/09/2023 12:58 PM CHOCOLATE MOLDER from Last 3 Months or Most Recently Relevant to Health Maintenance Results * XR Chest PA Lateral 2 Views (01/16/2025 2:16 PM CDT) Anatomical Region Laterality Modality Body, Chest N/A Computed Radiogr aphy 01/16/2025 2:18 PM CDT Impressions 01/16/2025 2:18 PM CDT COPD. Electronically signed by: Major Mena M.D. Narrative 01/16/2025 2:18 PM CDT EXAMINATION: XR CHEST PA LATERAL 2 VIEWS HISTORY: The patient is an 79-year-old male who presents with a history of COPD. Comparison made with the previous study dated 01/10/2024. TECHNIQUE: PA and lateral view of the chest. FINDINGS: Borderline cardiomegaly with aortic atherosclerosis. There is slight haziness of the vascular markings. No focal consolidation. Procedure Note Maojr Mena MD - 01/16/2025 EXAMINATION: XR CHEST PA LATERAL 2 VIEWS HISTORY: The patient is an 79-year-old male who presents with a history of COPD. Comparison made with the previous study dated 01/10/2024. TECHNIQUE: PA and lateral view of the chest. FINDINGS: Borderline cardiomegaly with aortic atherosclerosis. There is slight haziness of the vascular markings. No focal consolidation. IMPRESSION: COPD. Electronically signed by: Major Mena M.D. Quan Casas MD IMG XR PROCEDURES Estella l Result * CT Chest WO Contrast (12/20/2024 12:14 PM CDT) Anatomical Region Laterality Modality Body N/A Computed Tomogra phy 12/20/2024 2:13 PM CDT Impressions 12/20/2024 2:13 PM CDT 1. Near complete resolution of the tree-in-bud nodularity in the right lower lobe. Next line 2. No change in a partially calcified left upper lobe nodule/broncholith. Electronically signed by: Adrián Pepper M.D. Narrative 12/20/2024 2:13 PM CDT EXAMINATION: CT CHEST WO CONTRAST HISTORY: ABNORMAL LUNG FINDINGS FINDINGS: Emphysema. No change in a 9 mm left upper lobe pulmonary nodule with punctate calcification. Near resolution of the previously seen nodularity in the right lower lobe, with very minimal residual tree-in-bud nodularity. No pleural effusion or pneumothorax. Heart size is enlarged. Coronary artery calcifications. Cardiac leads terminate in the right atrium and right ventricle and coronary sinus. Median sternotomy change. Subcentimeter aortopulmonary lymph node is unchanged. Gynecomastia. Low-density liver lesions are unchanged, likely cysts. No acute or suspicious osseous abnormality. Procedure Note Adrián Pepper MD - 12/20/2024 EXAMINATION: CT CHEST WO CONTRAST HISTORY: ABNORMAL LUNG FINDINGS FINDINGS: Emphysema. No change in a 9 mm left upper lobe pulmonary nodule with punctate calcification. Near resolution of the previously seen nodularity in the right lower lobe, with very minimal residual tree-in-bud nodularity. No pleural effusion or pneumothorax. Heart size is enlarged. Coronary artery calcifications. Cardiac leads terminate in the right atrium and right ventricle and coronary sinus. Median sternotomy change. Subcentimeter aortopulmonary lymph node is unchanged. Gynecomastia. Low-density liver lesions are unchanged, likely cysts. No acute or suspicious osseous abnormality. IMPRESSION: 1. Near complete resolution of the tree-in-bud nodularity in the right lower lobe. Next line 2. No change in a partially calcified left upper lobe nodule/broncholith. Electronically signed by: Adrián Pepper M.D. Quan Casas MD IMG CT PROCEDURES Estella l Result * CT Abdomen Pelvis W Contrast (09/09/2023 12:58 PM CHOCOLATE MOLDER) Anatomical Region Laterality Modality Body N/A Computed Tomogra phy 09/09/2023 1:09 PM CHOCOLATE MOLDER Impressions 09/09/2023 1:09 PM CHOCOLATE MOLDER 1. Large left rectus abdominis hematoma measuring 8.8 x 5.4 x 9.0 cm with asymmetric enlargement of the left abdominal oblique musculature likely representing additional foci of hemorrhage. 2. Findings suggestive of congestive heart failure to include cardiomegaly, moderate right pleural effusion, ascites, and mild anasarca. 3. Enlarged prostate. Consider PSA. 4. Moderately sized hiatal hernia. 5. Chronic or incidental findings as above. Electronically signed by: Albert Brown II, D.O. Narrative 09/09/2023 1:09 PM CHOCOLATE MOLDER EXAMINATION: CT ABDOMEN PELVIS W CONTRAST DATE: 09/09/2023 12:55 PM HISTORY: Left lower quadrant pain. COMPARISON: None. TECHNIQUE: Transaxial computed tomographic images of the abdomen and pelvis were obtained after the administration of 65 mL of Optiray 350 intravenously. Multiplanar coronal and sagittal images were reformatted. FINDINGS: Moderately sized right pleural effusion with associated passive atelectasis. There is cardiomegaly with partially visualized AICD leads. Moderately sized hiatal hernia. Stomach is unremarkable. There is diffuse hepatic steatosis. Small simple cyst in the right hepatic lobe. The spleen and adrenal glands are unremarkable. Gallbladder is decompressed. 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 Kidneys are unremarkable. No hydroureteronephrosis. Unopacified bladder is unremarkable. Prostate is enlarged. Consider PSA. There is mild anasarca and mild ascites. Large stool burden throughout the colon. Appendix not definitively visualized. Small bowel is unremarkable as seen. No acute osseous abnormality. No suspicious lytic or sclerotic lesions. Mild multilevel endplate changes in the visualized spine. Enlarged heterogeneous slightly hyperdense appearance of the left rectus abdominis muscle measuring 8.8 x 5.4 x 9.0 cm. Asymmetric enlargement of the left abdominal oblique musculature also likely represents intramuscular hemorrhage. Procedure Note Albert Brown II, - 09/09/2023 EXAMINATION: CT ABDOMEN PELVIS W CONTRAST DATE: 09/09/2023 12:55 PM HISTORY: Left lower quadrant pain. COMPARISON: None. TECHNIQUE: Transaxial computed tomographic images of the abdomen and pelvis were obtained after the administration of 65 mL of Optiray 350 intravenously. Multiplanar coronal and sagittal images were reformatted. FINDINGS: Moderately sized right pleural effusion with associated passive atelectasis. There is cardiomegaly with partially visualized AICD leads. Moderately sized hiatal hernia. Stomach is unremarkable. There is diffuse hepatic steatosis. Small simple cyst in the right hepatic lobe. The spleen and adrenal glands are unremarkable. Gallbladder is decompressed. 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 Kidneys are unremarkable. No hydroureteronephrosis. Unopacified bladder is unremarkable. Prostate is enlarged. Consider PSA. There is mild anasarca and mild ascites. Large stool burden throughout the colon. Appendix not definitively visualized. Small bowel is unremarkable as seen. No acute osseous abnormality. No suspicious lytic or sclerotic lesions. Mild multilevel endplate changes in the visualized spine. Enlarged heterogeneous slightly hyperdense appearance of the left rectus abdominis muscle measuring 8.8 x 5.4 x 9.0 cm. Asymmetric enlargement of the left abdominal oblique musculature also likely represents intramuscular hemorrhage. IMPRESSION: 1. Large left rectus abdominis hematoma measuring 8.8 x 5.4 x 9.0 cm with asymmetric enlargement of the left abdominal oblique musculature likely representing additional foci of hemorrhage. 2. Findings suggestive of congestive heart failure to include cardiomegaly, moderate right pleural effusion, ascites, and mild anasarca. 3. Enlarged prostate. Consider PSA. 4. Moderately sized hiatal hernia. 5. Chronic or incidental findings as above. Electronically signed by: Pepe Moe IIORivera Kelly العلي MD IMG CT PROCEDURES Final Result from Last 3 Months or Most Recently Relevant to Health Maintenance Insurance MEDICARE [id number] MEDICARE [facility] MEDICARE FOR LIFE MEDICARE Advance Directives For more information, please contact: [phone] Documents on File Type Date Recorded Patient Chair Springer Expl anation ADVANCE DIRECTIVE 03/16/2023 3:19 PM POWER OF DENTAL TECHNOLOGY ADVISOR-MEDICAL ADVANCE DIRECTIVE 03/08/2023 5:06 PM POWER OF DENTAL TECHNOLOGY ADVISOR-MEDICAL Power of Track Moving Machine Operator 03/04/2023 11:54 AM * Full Code (Latest Code Status on File) Date Activated Date Inactivated Comments 12/19/2023 10:02 AM 12/19/2023 3:43 PM * Full Code Date Activated Date Inactivated Comments 03/15/2023 9:01 AM 03/24/2023 2:30 PM * Full Code Date Activated Date Inactivated Comments 03/03/2023 11:01 AM 03/15/2023 8:57 AM Care Teams Rigging Helper Relationship Specialty Start Date End Date Octavio Downey MD [address] [place] [address] PCP - General Internal Medicine 03/03/23 Octavio Downey MD [address] [facility] [address] [place] [address] Referring Physician Internal Medicine 03/14/23 [place] [id number] [facility] [address] [place] [address] Consulting Physician Pulmonary Disease 03/14/23 Fred Hussein MD [address] [facility] [address] [place] [address] Consulting Physician Cardiology 03/14/23
--- OUTSIDE RECORDS SUMMARY | 2025-03-19 08:49 | XMS_ITS | Encounter Summary ---
Author Organization [facility] Address [address] [place] [address] Phone Care Team Providers Care Formal Waiter/Waitress Name Role Phone John Lin MD Primary Care Provider [phone] Octavio Downey MD Primary Care Provider + Octavio Downey MD Unavailable [phone] Cookie Voss MD Unavailable [phone] Fred Hussein MD Unavailable [phone] Encounter Details Date Type Department Care Team (Late st Contact Info) Description 09/18/2019 Orders Only [facility] [address] [place] [address] Scanning, Provider Social History Tobacco Use Types Packs/Day Years Used Date Smoking Tobacco: Former Smokeless Tobacco: Never Alcohol Use Standard Drinks/Week Comments No 0 (1 standard drink = 0.6 oz pur e alcohol) Sex and Gender Information Value Date Recorded Sex Assigned at Not on file Legal Sex Male 1:18 AM SPEEDER FRAME TENDER Gender Identity Not on file Sexual Orientation Not on file documented as of this encounter Plan of Treatment Not on file documented as of this encounter Procedures Procedure Name Priority Date/Time Associated Diagnosis Comments SCAN - OTHER ORDERS 09/18/2019 documented in this encounter Results * SCAN - OTHER ORDERS (09/18/2019) us Provider Scanning Final Result documented in this encounter Visit Diagnoses Not on filedocumented in this encounter Additional Health Concerns Infection Onset Date Last Indicated Resolved Time COVID: Suspected 03/09/2023 03/09/2023 03/09/2023 4:24 PM CDT documented as of this encounter Care Teams Formal Waiter/Waitress Relationship Specialty Start Date End Date John Lin MD [address] [place] [address] PCP - General 12/15/16 03/02/23 Octavio Downey MD [address] [place] [address] PCP - General Internal Medicine 03/03/23 Octavio Downey MD [address] [place] [address] Referring Physician Internal Medicine 03/14/23 [place] [address] [place] [address] Consulting Physician Pulmonary Disease 03/14/23 Fred Hussein MD [address] [facility] [address] [place] [address] Consulting Physician Cardiology 03/14/23 documented as of this encounter
--- OUTSIDE RECORDS SUMMARY | 2025-03-19 08:49 | XMS_ITS | Referral Summary ---
Author Organization [facility] Address [address] [place] [address] Care Team Providers Care Certified Athletic Trainer Name Role Phone Octavio Downey MD Primary Care Provider + Octavio Downey MD Unavailable [phone] Cookie Voss MD Unavailable [phone] Fred Hussein MD Unavailable [phone] Encounters Date Type Department Care Team Description 01/16/2025 2:04 PM CDT - 01/16/2025 11:59 PM CDT Hospital Encounter [facility] Diagnostic Imaging [id number] [place] [address] Pulmonary emphysema, unspecified emphysema type (HCC) Discharge Disposition: Discharge to home or self care 12/20/2024 11:59 AM CDT - 12/20/2024 11:59 PM CDT Hospital Encounter [facility] Imaging and Radiology [id number] [place] [address] Other nonspecific abnormal finding of lung field Discharge Disposition: Discharge to home or self care from Last 3 Months Allergies No known active allergies Medications furosemide [...] Cardiac defibrillator in place 02/26/2020 Overview (03/03/2023): SJM 3369-40Q [id number] Implanted 02/26/20 Dr Childs RV: SJM 7122Q SN:[id number] 02/26/20 LV: [facility] 1458Q SN:[id number] 02/26/20 JESSICA (obstructive sleep apnea) 04/25/2019 Overview [...] Echo: EF 45%, basal septal/inferior HK, severe XAEL, moderate MR, mild- moderate TR, mild AI, [...] with PAC & PVC; no symptoms reported Social History Tobacco Use Types Packs/Day Years [...] How often do you attend chur or latter-day services? Never 03/16/2023 Do you belong to any clubs o r organizations such as christianity groups, unions, fraternal or athletic groups, or [...] place to sleep or slept in a custodial (including now)? No 03/16/2023 Personal Safety Answer Date Recorded Have you ever been in or are you currently in a harmful physical or emotional relationship or is someone making you feel afraid or unsafe? Denies 12/19/2023 Sex and Gender Information Value Date Recorded Sex Assigned at Not on file Legal Sex Male 1:18 AM VISITOR SERVICES ASSISTANT Gender Identity Not on file Sexual Orientation Not on file Last Filed Vital Signs Vital Sign Reading Time Taken Comments Blood Pressure 98/68 12/19/2023 11:33 AM CDT Pulse 62 12/19/2023 11:33 AM CDT Temperature 36.7 C (98.1 F) 09/09/2023 10:37 AM VISITOR SERVICES ASSISTANT Respiratory Rate 23 12/19/2023 11:33 AM CDT Oxygen Saturation 98% 12/19/2023 11:33 AM CDT Inhaled Oxygen Concentration - - Weight 74.8 kg (165 lb) 12/19/2023 10:09 AM CDT Height 177.8 cm (5' 10) 12/19/2023 10:09 AM CDT Body Mass Index 23.68 12/19/2023 10:09 AM CDT Plan of Treatment Not on file Medical Devices Implanted Type Area Sander Operator Device Identifier Shelf Expiration Date Model / [...] PELVIS W CONTRAST ED 09/09/2023 12:58 PM VISITOR SERVICES ASSISTANT from Last 3 Months or Most Recently [...] vascular markings. No focal consolidation. Procedure Note Major Mena MD - 01/16/2025 EXAMINATION: XR CHEST [...] M.D. Quan Casas MD IMG XR PROCEDURES Esetlla l Result * CT Chest WO Contrast [...] by: Adrián Pepper M.D. Quan Casas MD IM CT PROCEDURES Estella l Result * CT Abdomen Pelvis W Contrast (09/09/2023 12:58 PM VISITOR SERVICES ASSISTANT) Anatomical Region Laterality Modality Body N/A Computed Tomogra phy 09/09/2023 1:09 PM VISITOR SERVICES ASSISTANT Impressions 09/09/2023 1:09 PM VISITOR SERVICES ASSISTANT 1. Large left rectus abdominis hematoma measuring [...] Brown II, D.O. Narrative 09/09/2023 1:09 PM VISITOR SERVICES ASSISTANT EXAMINATION: CT ABDOMEN PELVIS W CONTRAST DATE: [...] as above. Electronically signed by: Albert Brown II D.ORivera Kelly العلي MD IMG CT PROCEDURES Final Result from Last 3 Months or Most Recently Relevant to Health Maintenance Insurance MEDICARE FOR LIFE MEDICARE FOR LIFE MEDICARE [employer] [facility] MEDICARE Advance Directives For more information, please contact: [phone] Documents on File Type Date Recorded Patient Confectionery Laboratory Manager Expl anation ADVANCE DIRECTIVE 03/16/2023 3:19 PM POWER OF COMMUNITY SERVICE ORGANIZATION DIRECTOR-MEDICAL ADVANCE DIRECTIVE 03/08/2023 5:06 PM POWER OF COMMUNITY SERVICE ORGANIZATION DIRECTOR-MEDICAL Power of Assurance Manager 03/04/2023 11:54 AM * Full Code (Latest Code Status on File) Date Activated Date Inactivated Comments 12/19/2023 10:02 AM 12/19/2023 3:43 PM * Full Code Date Activated Date Inactivated Comments 03/15/2023 9:01 AM 03/24/2023 2:30 PM * Full Code Date Activated Date Inactivated Comments 03/03/2023 11:01 AM 03/15/2023 8:57 AM Care Teams Certified Athletic Trainer Relationship Specialty Start Date End Date Octavio Downey MD [address] [place] [place] [address] PCP - General Internal Medicine 03/03/23 Octavio Downey MD [address] [facility] [address] [place] [address] Referring Physician Internal Medicine 03/14/23 [place] [address] [facility] [address] [place], [place] [id number] Consulting Physician Pulmonary Disease 03/14/23 Fred Hussein MD [address] [facility] [address] [place] [address] Consulting Physician Cardiology 03/14/23
--- OUTSIDE RECORDS SUMMARY | 2025-03-19 08:49 | XMS_ITS | Clinical Summary ---
Author Organization [facility] Address [facility] [place] [address] Care Team Providers Care Physical Damage Appraiser Name Role Phone Unavailable Primary Care Provider Unavailabl e Social History Tobacco Use Types Packs/Day Years Used Date Smoking Tobacco: Never Assessed Sex and Gender Information Value Date Recorded Sex Assigned at Not on file Legal Sex Male 4:39 PM CDT Gender Identity Not on file Sexual Orientation Not on file Plan of Treatment Health Maintenance Due Date Last Done Comments DTaP, Tdap and Td Vaccines ( 1 - Tdap) 1962 Pneumococcal Vaccine: 50+ Ye ars (1 of 1 - PCV) 1993 Zoster Vaccines (1 of 2) 1993 RSV Immunization or 60+ Years (1 - 1-dose 75+ series) 2018 COVID-19 Vaccine ( - 2023-2 5 season) 2024 Meningococcal B Vaccine Aged Out No l onger eligible based on patient's age to complete this topic Meningococcal Vaccine Aged Out No russell aquiles eligible based on patient's age to complete this topic RSV Immunizations Under 20 Months Aged Out No longer eligible based on patient's age to complete this topic
--- OUTSIDE RECORDS SUMMARY | 2025-03-19 08:49 | XMS_ITS | Clinical Summary ---
Author Organization [facility] Address [address] [facility] [place] [address] Care Team Providers Care Area Attendant Name Role Phone Albert Smith DO Primary Care Provider [phone] Source Comments [facility],non-owned Affiliates and Associated Physician Practices is amultiple site organization consisting of ambulatory clinics and hospital sitesin [place], [place], [place] and [place]. This disclosure is being madepursuant to the Care Everywhere program and may not contain all information available regarding this patient. Last updated 18.[facility] Allergies Active Allergy Reactions Criticality Noted Date Comments Carvedilol Other 04/14/2020 SOB and depression Eplerenone Dizziness 06/27/2020 Metoprolol Other 11/01/2017 mild depression & anxiety Medications * Be aware that medications may not be up to date on this document. Alwaysverify current medications with the patient. citalopram (CELEXA) 40 MG tablet Take 0.5 (one-half) tablet by mouth once daily Active tamsulosin (FLOMAX) 0.4 MG capsule Take 0.4 mg by mouth once daily Take 30 minutes after a meal at the same time each day. Active buPROPion XL 24hr (WELLBUTRIN-XL ) 150 MG tablet Take 150 mg by mouth once daily Active Multiple Vitamins-Labor Relations Representative als (MULTIVITAMIN ADULT PO) Take by mouth once daily Active acetaminophen (TYLENOL) 325 MG tablet Take 650 mg by mouth every 4 hours as needed for Fever or Pain Maximum allowable Acetaminophen amount = 4 Grams (4000 mg) / 24 hours. Active aspirin (ASPIRIN) 325 MG tablet Take 325 mg by mouth once daily Active ADVAIR DISKUS 250-50 MCG/DOSE inhaler 0 Active Cyanocobalamin (VITAMIN B12) 100 MCG Active digoxin (LANOXIN) 0.125 MG tablet Take 1 tablet by mouth every 2 days 45 tablet 4 0 Active potassium chloride ER (KLOR-CON) 10 MEQ tablet Take 1 tablet by mouth 2 times daily 180 tablet 4 0 Active Polyethylene Glycol 3350 (MIRALAX PO) Active pravastatin (PRAVACHOL) 40 MG tablet Take 1 tablet by mouth at bedtime 90 tablet 4 0 Active cetirizine (ZYRTEC) 10 MG tablet Take 10 mg by mouth once daily Active furosemide (LASIX) 20 MG tablet Take 1.5 tablets by mouth once daily 135 tablet 4 0 Active lisinopril (PRINIVIL;ZEST RIL) 5 MG tablet Take 1 tablet by mouth at bedtime 90 tablet 4 0 Active ferrous sulfate (FEROSUL) 325 (65 FE) MG tablet Take 1 (one) tablet by mouth daily with breakfast 90 tablet 3 1 Active bumetanide (Bumex) 2 MG tablet 4 Active dutasteride (Avodart) 0.5 MG capsule 3 Active midodrine (Proamatine) 10 MG tablet Take 1 (one) tablet by mouth 2 times daily 3 Active multivitamins (One A Day) capsule Take 1 (one) capsule by mouth once daily Active Rapaflo 4 MG capsule 3 Active spironolactone (Aldactone) 25 MG tablet 4 Active Jardiance 10 MG tablet 1 (one) tablet 4 Active calcitriol (Rocaltrol) 0.25 MCG capsule 1 (one) capsule 5 Active Active Problems Problem Noted Date Diagnosed Date Renal insufficiency 07/16/2020 Overview (07/16/2020): 07/18 BUN 30 creatinine 1.34 GFR 51 02/15 BUN 29 creatinine 1.2 01/14 BUN 19 creatinine 1.19 Bi V ICD 02/26/2020 Overview (02/26/2020): SJM 3369-40Q [id number] Implanted 02/26/20 Dr Childs RV: SJM 7122Q SN:[id number] 02/26/20 LV: SJM 1458Q [id number] 02/26/20 Nonrheumatic tricuspid valve regurgitation 01/29 Coronary artery disease involving bishop paiute coronar y artery 11/01/2019 Overview (11/22/2019): 06/14 Stress nuclear 6:00--96% maximal heart rate, no ischemia, inferior attenuation (small/mild), EF 57%, exercise tolerance 100% predicted 11/15 Cath: EF 30-35%, EDP 20-22, 50-70% LM, 70-80% mLAD just below D1, 70% D1, 70% OM1, 40% mRCA, 80% pPDA 11/15 CABG 4: FOREMAN to LAD, SVG to PDA, SVG to OM1, radial off SVG yee to OM2, VERONIKA ligation, pulmonary vein isolation by Dr. Eli Atherosclerosis of aorta 05/23/2019 Pancreatic lesion 05/23/2019 Hiatal hernia 05/23/2019 Enlarged prostate 05/23/2019 JESSICA (obstructive sleep apnea) 04/25/2019 Overview (04/25/2019): 03/16 sleep study: JESSICA Persistent atrial fibrillation 01/23/2019 Overview (01/01/2020): 06/14 EKG: SR at 68, RSR' in V1, nonspecific ST/T-wave abnromality, QT 420 07/16 EKG: SB at 57, RSR' in V1, nonspecific ST/T-wave abnormality, QTc 428; little change c/w 06/14 EKG 01/14 EKG: AF at 85, PVC, RSR' in V1, nonspecific ST/TW abnormality 01/14 TSH 3.9 01/14 Holter: AF at 86, range 48-132, rare PVCs, SOB correlated AF at 88-97 02/14 AF cardioversion -> SR 04/16 EKG: SR at 62, PVC, RSR in V!, borderline IVCD, nonspecific ST/TW abnormality 10/18 EKG: AF at 87, QR in V1/V2, delayed R-wave progression, nonspecific ST/TW abnormality 11/15 VERONIKA ligation, pulmonary vein isolation, CABG [address] Eli 01/15 EKG: AF at 98, RSR in V1/V2, delayed R-wave progression, LAFB, nonspecific ST/TW abnormality Ventricular tachycardia, nonsustained 07/14/2018 Abnormal EKG 06/08/2017 Dilated cardiomyopathy 06/08/2017 Overview (06/27/2020): 06/14 Echo: EF 45%, basal septal/inferior HK, severe AXEL, moderate MR, mild- moderate TR, mild AI, RVSP 37 06/14 Stress nuclear: EF 57%... 07/16 Echo: EF 45%, no new focal RWMAs, severe LAE, mild BRIANDA, [id number] MR, mild AI/TR/PI, RVSP 38, no pericardial effusion 09/17 SPEP & UPEP: no monoclonal proteins 10/18 Free kappa/lambda ratio normal at 1.01, levels normal 10/18 Echo: EF 30-35%, mild LVH, moderate RVE, mild RV dysfunction, severe AXEL, mild-moderate MR, mild AI/TR, moderately dilated IVC, RVSP 44, aortic root 40 11/15 AYESHA (OR): EF 25-30% severe atrial enlargement -> post CABG on inotropes -> EF 40% 12/16 Echo (TDS): EF 46%, apical AK, anteroseptal/septal HK, moderate RVE/BRIANDA, severe LAE, mild MR, moderate TR 02/15 Echo: EF 30-35%, severe AXEL, moderate RVE, moderate RV dysfunction, severe MR/TR, mild AI, RVSP 32 02/15 AYESHA: EF 35%, moderate-severe LVE, mild LVH, moderate RVE, severe RV dysfunction, severe LAE, moderate-severe BRIANDA, mild AI, severe central MR, regurgitant volume 94 ml, regurgitant fraction 72%, moderate TR, RV-RA gradient 26 06/17 Echo: EF 40-45%, paradoxic septum, moderate RVE, moderate RV dysfunction, severe AXEL, mild-moderate MR, mild AI, moderate TR, RVSP 45, dilated IVC Non-rheumatic mitral regurgitation 06/08/2017 Non-rheumatic aortic valve insufficiency 017 Essential hypertension 06/07/2017 Pure hypercholesterolemia 06/07/2017 Overview (07/16/2020): 07/18 Cholesterol 115 HDL 49 LDL 53 triglyceride 51, normal LFTs/glucose 01/14 Cholesterol 130 HDL 40 LDL 71 triglyceride 109, AST 22 ALT 34 glucose 105 07/16 Cholesterol 152 HDL 45 LDL 91 triglyceride 74, normal CMP 01/12 Cholesterol 163 HDL 47 LDL 100 triglyceride 79, normal CMP, on lovastatin 20 mg daily Syncope and collapse 06/07/2017 Overview (07/06/2018): 1960 brief syncope on abrupt standing 2013 brief presyncope & fall on standing 05/15 brief presyncope & fall while walking up stairs in stands at [place] after 2 beers 05/15 Holter x24 hrs: SR at 71, range 57-106, occasional PACs, rare PVCs, 12 beat VT at 120, slightly dizzy correlated with PVCs 06/14 Event recorder x 30 days: Baseline SR at 75 with PAC & PVC; no other arrhythmias Migraine Resolved Problems Problem Noted Date Diagnosed Date Resolved Date Sensorineural hearing loss ( SNHL) of both ears 08/09/2019 01/01/2020 Acute blood loss anemia 05/23/2019 05/0 12/2019 Decreased mobility 05/23/2019 0 Chronic atrial fibrillation 05/23/2019 11/01/2019 Hepatic cyst 05/23/2019 01/01/2020 L2 vertebral fracture 05/23/20192019 Contusion of left lung 05/22/201912/31 Fall 05/20/2019 01/01/2020 Closed fracture of multiple ribs of both sides 05/20/2019 01/01/2020 Fall from roof as cause of accidental injury 9 01/01/2020 Fracture of left scapula 05/20/201912/2019 Closed fracture of transvers e process of cervical vertebra 05/20/2019 01/01/2020 Closed fracture of transvers e process of thoracic vertebra 05/20/2019 01/01/2020 Lumbar transverse process fr acture, closed, initial encounter 05/20/2019 01/01/2020 Pneumothorax, traumatic 05/19/2019/0 12/2019 Precordial pain 07/06/2018 11/01/2019 Borderline high blood pressure 07/15/2017 07/15/2017 Encounters Date Type Department Care Team Description 12/31/2024 2:00 PM CDT Office Visit [facility] Orthopedics [address] [facility], [address] [address] John Hammonds MD Primary osteoarthritis of both knees (Primary Dx) 12/31/2024 Travel from Last 3 Months Immunizations Immunization Administration Dates Next Due INFLUENZA VACCINE, HIGH-DOSE , QUADR. (FLUZONE HIGH-DOSE QUADRIVALENT; 65Y+), 0.7 ML (HD-IIV4) 05/20/2019(Deferred: Patient Refused - pt wants at later time) Family History Relation Name Status Comments Brother Alive no heart dz Father (Age 91) CVA in 80s , atrial fib, prostrate cancer Mother (Age 91) no heart d z Sister 1 Alive no heart dz Sister 2 Alive no heart dz Social History Tobacco Use Types Packs/Day Years Used Date Smoking Tobacco: Former Cigarettes Q uit: 08/29/1979 Smokeless Tobacco: Never Tobacco Cessation:Counseling Given: Not Answered Alcohol Use Standard Drinks/Week Comments Yes 3 (1 standard drink = 0.6 oz pur e alcohol) 3 per week AUDIT-C Answer Date Recorded Frequency of Alcohol Consumption 2-3 times a wee k 05/19/2019 Average Number of Drinks 1 or 2 019 Frequency of Binge Drinking Never 04/30 PHQ-2 Answer Date Recorded Patient Health Questionnaire-2 Score 2 09/24/2024 Sex and Gender Information Value Date Recorded Sex Assigned at Not on file Legal Sex Male 12:14 PM CDT Gender Identity Not on file Sexual Orientation Not on file 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 Not on file Not on angela e Last Filed Vital Signs Vital Sign Reading Time Taken Comments Blood Pressure 120/70 06/27/2020 2:49 PM CDT Pulse 62 06/27/2020 2:49 PM CDT Temperature 37.1 C (98.7 F) 11/01/2019 8:34 AM QUARTZ MOUNTER Respiratory Rate 10 05/09/2020 3:19 PM CDT Oxygen Saturation 98% 06/27/2020 2:49 PM CDT Inhaled Oxygen Concentration - - Weight 77.1 kg (170 lb) 04/02/2024 2:31 PM CDT Height 177.8 cm (5' 10) 04/02/2024 2:31 PM CDT Body Mass Index 24.39 04/02/2024 2:31 PM CDT Plan of Treatment Upcoming Encounters Date Type Department Care Team (Late st Contact Info) Description 04/02/2025 2:00 PM CDT Office Visit [facility] Orthopedics [address] [address] [place] [address] [facility] [address] [place] [address] Health Maintenance Due Date Last Done Comments MEDICARE AWV 12 MONTHS 1945 DTAP/TDAP/TD VACCINES (1 - Tdap) 1962 PNEUMOCOCCAL VACCINE 50+ (1 of 1 - PCV) 1993 ZOSTER VACCINE (1 of 2) 1993 Respiratory Syncytial Virus (RSV) Vaccine Pt: or over 60 yrs (1 - 1-dose 75+ series) 2018 COVID-19 VACCINE (2023-2 5 season) 2024 10/21/2020, 09/29/2020 INFLUENZA VACCINE (#1) 2025 DEPRESSION SCREENING Completed 10/01/2024, 04/02/2024 HEPATITIS B VACCINE Aged Out No longe r eligible based on patient's age to complete this topic HIB VACCINE Aged Out No longer eligi ble based on patient's age to complete this topic HPV VACCINE Aged Out No longer eligi ble based on patient's age to complete this topic MENINGOCOCCAL (Group B) VACCINE SHARED DECISION-MAKING Aged Out No longer eligible based on patient's age to complete this topic MENINGOCOCCAL GROUPS A/C/Y/W VACCINE Aged Out No longer eligible b ased on patient's age to complete this topic Insurance MEDICARE MEDICARE [facility] MEDICARE [facility] Advance Directives * Full Code (Latest Code Status on File) Date Activated Date Inactivated Comments 05/19/2019 4:57 PM 05/23/2019 2:03 PM Care Teams Area Attendant Relationship Specialty Start Date End Date Albert Smith DO [address] [place] [phone] PCP - General Internal Medicine 04/02/24
--- OUTSIDE RECORDS SUMMARY | 2025-03-19 08:49 | XMS_ITS | Encounter Summary ---
Author Organization [facility] Address [address] [place] [address] Phone Care Team Providers Care Airline Reservationist Name Role Phone John Lin MD Primary Care Provider [phone] Octavio Downey MD Primary Care Provider + Octavio Downey MD Unavailable [phone] Cookie Voss MD Unavailable [phone] Fred Hussein MD Unavailable [phone] Encounter Details Date Type Department Care Team (Late st Contact Info) Description 08/07/2020 Orders Only [facility] Scanning, Provider Social History Tobacco Use Types Packs/Day Years Used Date Smoking Tobacco: Former Smokeless Tobacco: Never Alcohol Use Standard Drinks/Week Comments No 0 (1 standard drink = 0.6 oz pur e alcohol) Sex and Gender Information Value Date Recorded Sex Assigned at Not on file Legal Sex Male 1:18 AM CONTINUOUS PICKLING LINE PICKLER Gender Identity Not on file Sexual Orientation Not on file documented as of this encounter Plan of Treatment Not on file documented as of this encounter Procedures Procedure Name Priority Date/Time Associated Diagnosis Comments SCAN - LABS 08/07/2020 documented in this encounter Results * SCAN - LABS (08/07/2020) us Provider Scanning Final Result documented in this encounter Visit Diagnoses Not on filedocumented in this encounter Additional Health Concerns Infection Onset Date Last Indicated Resolved Time COVID: Suspected 03/09/2023 03/09/2023 03/09/2023 4:24 PM CDT documented as of this encounter Care Teams Airline Reservationist Relationship Specialty Start Date End Date John Lin MD [address] [place] [address] PCP - General 12/15/16 03/02/23 Octavio Downey MD [address] [facility] [address] PCP - General Internal Medicine 03/03/23 Octavio Downey MD [address] [facility] [address] [place] [address] Referring Physician Internal Medicine 03/14/23 [place] [address] [facility] [address] [place] [address] Consulting Physician Pulmonary Disease 03/14/23 Fred Hussein MD [address] [facility] [facility] [address] [place] [address] Consulting Physician Cardiology 03/14/23 documented as of this encounter
--- OUTSIDE RECORDS SUMMARY | 2025-03-19 08:49 | XMS_ITS | Encounter Summary ---
Author Organization [facility] Address [address] [facility] [place] [address] Care Team Providers Care Director Of People Name Role Phone Albert Smith DO Primary Care Provider [phone] Encounter Details Date Type Department Care Team (Late st Contact Info) Description 02/22/2020 Lab Requisition [facility] [address] [place] [address] Social History Tobacco Use Types Packs/Day Years Used Date Smoking Tobacco: Former Cigarettes Q uit: 08/29/1979 Smokeless Tobacco: Never Alcohol Use Standard Drinks/Week Comments Yes 3 (1 standard drink = 0.6 oz pur e alcohol) 3 per week AUDIT-C Answer Date Recorded Frequency of Alcohol Consumption 2-3 times a wee k 05/19/2019 Average Number of Drinks 1 or 2 019 Frequency of Binge Drinking Never 04/30 Sex and Gender Information Value Date Recorded Sex Assigned at Not on file Legal Sex Male 12:14 PM CDT Gender Identity Not on file Sexual Orientation Not on file 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 Answer Date of Assessment Author No 05/23/2019 11:39 AM EDET Ranjeet Lynn APRN-CNP * Is person blind or have serious difficulty seeing? Answer Date of Assessment Author No 05/23/2019 11:39 AM Ranjeet Croft APRN-CNP * Does person have serious difficulty walking/climbing stairs? Answer Date of Assessment Author No 05/23/2019 11:39 AM CDT Ranjeet Lynn APRN-CNP * Does person have difficulty dressing/bathing? Answer Date of Assessment Author No 05/23/2019 11:39 AM CDT Ranjeet Lynn APRN-CNP * Does person have difficulty doing errands alone? Answer Date of Assessment Author No 05/23/2019 11:39 AM CDT Ranjeet Lynn APRN-CNP documented as of this encounter Mental Status * Does person have difficulty concentrating/remembering/making decisions? Answer Entry Date Author No 05/23/2019 11:39 AM CDT Ranjeet Lynn APRN-CNP documented in this encounter Plan of Treatment Upcoming Encounters Date Type Department Care Team (Late st Contact Info) Description 04/02/2025 2:00 PM CDT Office Visit [facility] Orthopedics [address] [phone] [place] [address] [address] documented as of this encounter Procedures Procedure Name Priority Date/Time Associated Diagnosis Comments SARS-COV-2 (COVID-19) IN HOUSE Routine 02/22/2020 10:40 AM CDT documented in this encounter Results * SARS-COV-2 (COVID-19) IN HOUSE (02/22/2020 10:40 AM CDT) COVID-19 PCR Not detected Not detected, Invalid 02/22/2020 11:54 PM CDT [facility] Microbiology SPECIMEN FROM NASOPHARYNGEAL STRUCTURE / Unknown Collection / Unknown 02/22/2020 10:40 AM CDT 02/22/2020 4:21 PM CDT Narrative [facility] - 02/22/2020 11:54 PM CDT This Real Time RT-PCR assay was developed and its performance characteristics determined by [facility]. This test has been authorized by the Food and Drug administration (FDA)under an Emergency Use Authorization (EUA). This test has been validated in accordance with the FDA's guidance document Policy for Diagnostic Testing in Laboratories Certified to perform High Complexity Testing under CLIA prior to Emergency Use Authorization for Coronavirus Disease-2019 during the Public Health Emergency issued on October 27, 2019. FDA independent review of this validation is pending. This test is only authorized for the duration of time the declaration that circumstances exist justifying the authorization of emergency use of in vitro diagnostic tests for detection of SARS-CoV-2 virus and/or diagnosis of COVID-19 infection under section 564(b)(1) of the Act, 21 U.S.C 360bbb-3 (b)(1), unless the authorization is terminated or revoked sooner. us LAB - MICROBIOLOGY ORDERABLES Fi nal Result [facility] [address] [place] [address], [facility] [phone] documented in this encounter Visit Diagnoses Not on filedocumented in this encounter Additional Health Concerns Infection Onset Date Last Indicated Resolved Time COVID-19 Under Investigation 02/22/2020 02/22/2020 02/22/2020 11:54 PM CDT documented as of this encounter Care Teams Director Of People Relationship Specialty Start Date End Date Albert Smith DO [address] [place] [phone] PCP - General Internal Medicine 04/02/24 documented as of this encounter
[2025-03-19 19:01] LABS: Hematocrit 46.7 % (42.0-52.0); Hemoglobin 14.1 g/dL (14.0-18.0); Immature Granulocyte Percent A 0.2 % (0-0.5); Lymphocytes Absolute Auto 0.79 K/mm3 (0.9-3.2); Mean Corpuscular HGB Conc 30.2 g/dl (32-36); Mean Corpuscular Hemoglobin 29.4 pg (26-34); Mean Corpuscular Volume 97.3 fl (80-100); Nucleated Red Blood Cells Absolute Auto 0.000 K/mm3 (0.0-0.012); Nucleated Red Blood Cells Perc 0.0 % (0.0-0.2); Platelet Count Result 146 k/mm3 (150-375); Red Blood Count 4.80 M/mm3 (4.6-6.20); White Blood Count 4.4 K/mm3 (4.5-10.0)
[2025-03-19 20:19] LABS: Ferritin 71.50 ng/mL (11.1-264)
[2025-03-19 20:25] LABS: Vitamin B12 934.0 pg/mL (239-931)
[2025-03-22 10:08] LABS: Free Testosterone (Direct) 2.7 pg/mL (6.6-18.1)
== END 2025-03-19 08:47 | disposition home or self-care (01) ==
LOC: ANHGOSHLAB 08:47
PROVIDERS: PCP Internal Medicine; Visit Provider Internal Medicine
DX: E29.1 Testicular hypofunction (principal); D64.9 Anemia, unspecified
CPT/HCPCS: 36415; 82607; 82728; 82746; 84402; 84403; 85025

== ENCOUNTER 2025-03-29 08:20 | Outpatient (CLI) | payer MEDICARE, OTHER, SELFPAY ==
--- OUTSIDE RECORDS SUMMARY | 2025-03-29 08:27 | XMS_ITS | Referral Summary ---
Author Organization [facility] Address [address] [place] [address] Care Team Providers Care Community Director Name Role Phone Octavio Downey MD Primary Care Provider + Octavio Downey MD Unavailable [phone] Cookie Voss MD Unavailable [phone] Fred Hussein MD Unavailable [phone] Encounters Date Type Department Care Team Description 03/27/2025 11:30 AM CDT Office Visit [facility] [address] [address] Mirta Stephen NP Acute cough (Primary Dx); Acute non-recurrent frontal sinusitis 01/16/2025 2:04 PM CDT - 01/16/2025 11:59 PM CDT Hospital Encounter [facility] [address] [place] [address] Pulmonary emphysema, unspecified emphysema type (HCC) Discharge [...] 1 capsule (0.5 mg total) 4 Active amoxicillin-cla vulanate (AUGMENTIN) 875-125 mg per tabletIndicatio ns:Acute cough Take 1 tablet by mouth 2 (two) times a day for 7 days 14 tablet 5 04/03/20 25 Active benzonatate (TESSALON) 200 mg capsuleIndicati ons:Acute non-recurrent frontal sinusitis Take 1 capsule (200 mg total) by mouth 3 (three) times a day as needed for cough 30 capsule 5 Active Active Problems Problem Noted Date Diagnosed Date Physical deconditioning 03/15/2023 COPD exacerbation 03/14/2023 Severe malnutrition 03/14/2023 Physical debility 03/14/2023 Moderate malnutrition 03/04/2023 Sepsis without acute organ dysfunction Acute respiratory failure with hypoxia 3 Systolic congestive heart failure 03/03/2023 BPH (benign prostatic hyperplasia) 03/03/2023 Decreased mobility 03/03/2023 Depression 03/03/2023 Chronic atrial fibrillation 03/03/[address] 02/26/2020 Overview (03/03/2023): SJM 3369-40Q [id number] Implanted 02/26/20 Dr Childs RV: SJM 7122Q SN:[id number] 02/26/20 LV: SJM 1458Q SN:[id number] 02/26/20 JESSICA (obstructive sleep apnea) 04/25/2019 Overview [...] 03/16/2023 How often do you attend chur ch or muslim services? Never 03/16/2023 Do you belong to any clubs o r organizations such as bahai groups, unions, fraternal or athletic groups, or [...] place to sleep or slept in a usp (including now)? No 03/16/2023 Personal Safety Answer Date Recorded Have you ever been in or are you currently in a harmful physical or emotional relationship or is someone making you feel afraid or unsafe? Denies 12/19/2023 Sex and Gender Information Value Date Recorded Sex Assigned at Not on file Legal Sex Male 1:18 AM DIGITAL CAMPAIGN SPECIALIST Gender Identity Not on file Sexual Orientation Not on file Last Filed Vital Signs Vital Sign Reading Time Taken Comments Blood Pressure 110/69 03/27/2025 11:33 AM CDT Pulse 77 03/27/2025 11:33 AM CDT Temperature 36.7 C (98 F) 03/27/2025 11:33 AM CDT Respiratory Rate 18 03/27/2025 11:3 3 AM CDT Oxygen Saturation 98% 03/27/2025 11: 33 AM CDT Inhaled Oxygen Concentration - - Weight 80.6 kg (177 lb 11.2 oz) 025 11:33 AM CDT Height 177.8 cm (5' 10) 03/27/2025 11: 33 AM CDT Body Mass Index 25.5 03/27/2025 11:33 AM CDT Plan of Treatment Not on file Medical Devices Implanted Type Area Company Marker Device Identifier Shelf Expiration Date Model / Serial / Lot Pacemaker-02/10 Implanted:01/27 (Quantity not on file) Pacemaker Left: Chest Procedures Procedure Name Priority Date/Time Associated Diagnosis Comments POC INFLUENZA A/B, COVID-19 ANTIGEN Routine 03/27/2025 11:38 AM CDT Acute cough XR CHEST PA LATERAL 2 VIEWS Schedule Routine, Read Routine (OP Routine) 01/16/2025 2:16 PM CDT Pulmonary emphysema, unspecified emphysema type (HCC) CT ABDOMEN PELVIS W CONTRAST ED 09/09/2023 12:58 PM DIGITAL CAMPAIGN SPECIALIST from Last 3 Months or Most Recently Relevant to Health Maintenance Results * POC Influenza A/B, COVID-19 antigen (03/27/2025 11:38 AM CDT) Influenza A Ag, POC Negative Negative [facility] Influenza B Ag, POC Negative Negative [facility] COVID-19 Ag POC Presumptive Negative Presumptive Negative, Invalid [facility] Nasal 03/27/2025 11:3 8 AM CDT Mirta Stephen NP POINT OF CARE TEST ORDERAB LES Final Result [facility] [address] [place] [address] * XR Chest PA Lateral 2 Views [...] XR PROCEDURES Estella l Result * CT Abdomen Pelvis W Contrast (09/09/2023 12:58 PM DIGITAL CAMPAIGN SPECIALIST) Anatomical Region Laterality Modality Body N/A Computed Tomogra phy 09/09/2023 1:09 PM DIGITAL CAMPAIGN SPECIALIST Impressions 09/09/2023 1:09 PM DIGITAL CAMPAIGN SPECIALIST 1. Large left rectus abdominis hematoma measuring [...] Brown II, D.O. Narrative 09/09/2023 1:09 PM DIGITAL CAMPAIGN SPECIALIST EXAMINATION: CT ABDOMEN PELVIS W CONTRAST DATE: [...] intramuscular hemorrhage. Procedure Note Albert Brown II, DO - 09/09/2023 EXAMINATION: CT ABDOMEN PELVIS W [...] Electronically signed by: Albert Brown II, D.O. Kelly العلي MD IMG CT PROCEDURES Final Result from Last 3 Months or Most Recently Relevant to Health Maintenance Insurance MEDICARE [employer] MEDICARE FOR LIFE MEDICARE FOR LIFE MEDICARE Advance Directives For more information, please contact: [phone] Documents on File Type Date Recorded Patient Air Defense Artillery Senior Sergeant Expl anation ADVANCE DIRECTIVE 03/16/2023 3:19 PM POWER OF TECHNICAL SALES SUPPORT SPECIALIST-MEDICAL ADVANCE DIRECTIVE 03/08/2023 5:06 PM POWER OF TECHNICAL SALES SUPPORT SPECIALIST-MEDICAL Power of Tool And Die Maker Level Five 03/04/2023 11:54 AM * Full Code (Latest Code Status on File) Date Activated Date Inactivated Comments 12/19/2023 10:02 AM 12/19/2023 3:43 PM * Full Code Date Activated Date Inactivated Comments 03/15/2023 9:01 AM 03/24/2023 2:30 PM * Full Code Date Activated Date Inactivated Comments 03/03/2023 11:01 AM 03/15/2023 8:57 AM Care Teams Community Director Relationship Specialty Start Date End Date Octavio Downey MD [address] [place] [address] PCP - General Internal Medicine 03/03/23 Octavio Downey MD [address] [facility] [address] [place] [address] Referring Physician Internal Medicine 03/14/23 [place] [address] [address] [facility] [address] [place] [address] Consulting Physician Pulmonary Disease 03/14/23 Fred Hussein MD [address] [facility] [address] [place], [place] [address] Consulting Physician Cardiology 03/14/23
--- OUTSIDE RECORDS SUMMARY | 2025-03-29 08:27 | XMS_ITS | Encounter Summary ---
Author Organization [facility] Address [address] [place] [address] Phone Care Team Providers Care Squeezer Operator Name Role Phone John Lin MD Primary Care Provider [phone] Octavio Downey MD Primary Care Provider + Octavio Downey MD Unavailable [phone] Cookie Voss MD Unavailable [phone] Fred Hussein MD Unavailable Encounter Details Date Type Department Care Team [...] on file Legal Sex Male 1:18 AM SATELLITE MANAGER Gender Identity Not on file Sexual Orientation [...] Suspected 03/09/2023 03/09/2023 03/09/2023 4:24 PM CDT COVID: Suspected 03/27/2025 03/27/2025 03/27/2025 12:39 PM CDT documented as of this encounter Care Teams Squeezer Operator Relationship Specialty Start Date End Date John Lin MD [address] [place] [address] PCP - General 12/15/16 03/02/23 Octavio Downey MD [address] [place] [address] PCP - General Internal Medicine 03/03/23 Octavio Downey MD [address] [place] [address] Referring Physician Internal Medicine 03/14/23 [place] [address] [place] [address] Consulting Physician Pulmonary Disease 03/14/23 Fred Hussein MD [address] [place] [place] [address] Consulting Physician Cardiology 03/14/23 documented as of this encounter
--- OUTSIDE RECORDS SUMMARY | 2025-03-29 08:27 | XMS_ITS | Clinical Summary ---
Author Organization [facility] Address [address] [facility] [place] [address] Care Team Providers Care Night Shift Supervisor Name Role Phone Albert Smith DO Primary Care Provider [phone] Source Comments [facility],non-owned Affiliates and Associated Physician Practices is amultiple site organization consisting of ambulatory clinics and hospital sitesin [place], [place], [place] and [place]. This disclosure is being madepursuant to the Care Everywhere program and may not contain all information available regarding this patient. 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 11/01/2019 Overview (11/22/2019): 06/14 [...] new focal RWMAs, severe LAE, mild BRIANDA, dcvr-xv-sliyryke MR, mild AI/TR/PI, RVSP 38, no pericardial [...] Description 12/31/2024 2:00 PM CDT Office Visit [facility] Orthopedics [address] [facility], [address] [address] John Hammonds MD Primary osteoarthritis [...] 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 Not on file Not on angela e Last Filed Vital Signs Vital Sign Reading Time Taken Comments Blood Pressure 120/70 06/27/2020 2:49 PM CDT Pulse 62 06/27/2020 2:49 PM CDT Temperature 37.1 C (98.7 F) 11/01/2019 8:34 AM JUNIOR PHP DEVELOPER Respiratory Rate 10 05/09/2020 3:19 PM CDT [...] Description 04/02/2025 2:00 PM CDT Office Visit [facility] [address] [address] [place] [address] [facility] [address] [place] [address] Health Maintenance Due Date Last [...] to complete this topic Insurance MEDICARE MEDICARE [facility] MEDICARE [facility] Advance Directives * Full Code (Latest Code Status on File) Date Activated Date Inactivated Comments 05/19/2019 4:57 PM 05/23/2019 2:03 PM Care Teams Night Shift Supervisor Relationship Specialty Start Date End Date Albert Smith DO [address] [place] [phone] PCP - General Internal Medicine 04/02/24
--- OUTSIDE RECORDS SUMMARY | 2025-03-29 08:27 | XMS_ITS | Encounter Summary ---
Author Organization [facility] Address [address] [place] [address] Phone Care Team Providers Care Stitcher Utility Name Role Phone John Lin MD Primary Care Provider [phone] Octavio Downey MD Primary Care Provider + Octavio Downey MD Unavailable Cookie Voss MD Unavailable [phone] Fred Hussein MD Unavailable [phone] Encounter Details Date Type Department Care Team (Late st Contact Info) Description 09/18/2019 Orders Only [facility] [address] [place] [address] Scanning, Provider Social History Tobacco Use Types Packs/Day Years Used Date Smoking Tobacco: Former Smokeless Tobacco: Never Alcohol Use Standard Drinks/Week Comments No 0 (1 standard drink = 0.6 oz pur e alcohol) Sex and Gender Information Value Date Recorded Sex Assigned at Not on file Legal Sex Male 1:18 AM LEASE BROKER Gender Identity Not on file Sexual Orientation [...] documented as of this encounter Care Teams Stitcher Utility Relationship Specialty Start Date End Date John Lin MD [address] [place] [address] PCP - General 12/15/16 03/02/23 Octavio Downey MD [address] [facility] [place] [address] PCP - General Internal Medicine 03/03/23 Octavio Downey MD [address] [facility] [address] [place] [address] Referring Physician Internal Medicine 03/14/23 [place] [address] [facility] [address] [place] [address] Consulting Physician Pulmonary Disease 03/14/23 Fred Hussein MD [address] [facility] [address] [place] [address] Consulting Physician Cardiology 03/14/23 documented as of this encounter
--- OUTSIDE RECORDS SUMMARY | 2025-03-29 08:27 | XMS_ITS | Clinical Summary ---
Author Organization [facility] Address [facility] [place] [address] Care Team Providers Care Injection Mold Technician Name Role Phone Unavailable Primary Care Provider [...]
--- OUTSIDE RECORDS SUMMARY | 2025-03-29 08:27 | XMS_ITS | Clinical Summary ---
Author Organization [facility] Address [address] [place] [address] Care Team Providers Care Systems Software Engineer Name Role Phone Octavio Downey MD Primary Care Provider + Octavio Downey MD Unavailable Cookie Voss MD Unavailable [phone] Fred Hussein MD Unavailable [phone] Allergies No known active allergies Medications furosemide [...] Cardiac defibrillator in place 02/26/2020 Overview (03/03/2023): [facility] 3369-40Q [id number] Implanted 02/26/20 Dr Childs RV: SJM 7122Q SN:[id number] 02/26/20 LV: SJM 1458Q SN:[id number] 02/26/20 JESSICA (obstructive sleep apnea) 04/25/2019 Overview [...] PVCs Syncope 06/07/2017 03/03/2023 Overview (03/17/2018): Overview: 1960 brief syncope on abrupt standing 2013 brief presyncope & fall on standing 05/15 brief presyncope & fall while walking up stairs in stands at [place] after 2 beers 06/14 Event recorder x 30 days: Baseline SR at 73 with PAC & PVC; no symptoms reported Encounters Date Type Department Care Team Description 03/27/2025 11:30 AM CDT Office Visit [facility] at [address] [address] Mirta Stephen NP Acute cough (Primary Dx); Acute non-recurrent frontal sinusitis 01/16/2025 2:04 PM CDT - 01/16/2025 11:59 PM CDT Hospital Encounter [facility] Diagnostic Imaging [address] [place] [address] Pulmonary emphysema, unspecified emphysema type (HCC) Discharge Disposition: Discharge to home or self care from Last 3 Months Surgical History Surgery Date Site/Laterality Comments [place] UNLISTED PROCEDURE ABDOME N PERITONEUM & OMENTUM [...] (HCC) COPD (chronic obstructive pu lmonary disease) Depression Arthritis Cataract CHF (congestive heart failure) [...] often do you attend chur ch or protestant services? Never 03/16/2023 Do you belong to any clubs o r organizations such as lutheran groups, unions, fraternal or athletic groups, or [...] place to sleep or slept in a fci (including now)? No 03/16/2023 Personal Safety Answer Date Recorded Have you ever been in or are you currently in a harmful physical or emotional relationship or is someone making you feel afraid or unsafe? Denies 12/19/2023 Sex and Gender Information Value Date Recorded Sex Assigned at Not on file Legal Sex Male 1:18 AM MANAGER DISCOVERY Gender Identity Not on file Sexual Orientation [...] 03/27/2025 11:33 AM CDT Plan of Treatment Health Maintenance Due Date Last Done Comments DTaP/Tdap/Td Vaccine (1 - Tdap) 1956 Hepatitis B Screening 1961 Well Visit 65+ 2008 Pneumococcal vaccine 65+ (2 of 2 - PCV) 10/27/2018 0 10/27/2017, 05/11/2010 Zoster Vaccine (2 of 2) 12/24/2018 10/29/2018 Depression Screening 03/14/2024 03/14/2023, 03/14/20 23 Covid-19 Vaccine (3 - season) 2024, 09/29/2020 Fall Risk Assessment 07/13/2024 07/13/2023 Influenza Vaccine (#1) 2025 Abdominal Aortic Aneurysm (AAA) Screen Completed , 05/19/2019 Medical Devices Implanted Type Area Police Investigator Device Identifier Shelf Expiration Date Model / [...] PELVIS W CONTRAST ED 09/09/2023 12:58 PM MANAGER DISCOVERY from Last 3 Months or Most Recently Relevant to Health Maintenance Results * POC Influenza A/B, COVID-19 antigen (03/27/2025 11:38 AM CDT) Influenza A Ag, POC Negative Negative [facility] Influenza B Ag, POC Negative Negative [facility] COVID-19 Ag POC Presumptive Negative Presumptive Negative, Invalid [facility] Nasal 03/27/2025 11:3 8 AM CDT Mirta Stephen NP POINT OF CARE TEST ORDERAB LES Final Result [facility] [address] [place] [address] * XR Chest PA Lateral 2 Views [...] Abdomen Pelvis W Contrast (09/09/2023 12:58 PM MANAGER DISCOVERY) Anatomical Region Laterality Modality Body N/A Computed Tomogra phy 09/09/2023 1:09 PM MANAGER DISCOVERY Impressions 09/09/2023 1:09 PM MANAGER DISCOVERY 1. Large left rectus abdominis hematoma measuring [...] Brown II, D.O. Narrative 09/09/2023 1:09 PM MANAGER DISCOVERY EXAMINATION: CT ABDOMEN PELVIS W CONTRAST DATE: [...] also likely represents intramuscular hemorrhage. Procedure Note RejionielAlbert II, DO - 09/09/2023 EXAMINATION: CT ABDOMEN [...] Recently Relevant to Health Maintenance Insurance MEDICARE [employer] MEDICARE FOR LIFE MEDICARE FOR LIFE MEDICARE Advance Directives For more information, please contact: [phone] Documents on File Type Date Recorded Patient Cyber Security Engineer Expl anation ADVANCE DIRECTIVE 03/16/2023 3:19 PM POWER OF RECORD KEEPER-MEDICAL ADVANCE DIRECTIVE 03/08/2023 5:06 PM POWER OF RECORD KEEPER-MEDICAL Power of Print Developer Automatic 03/04/2023 11:54 AM * Full Code (Latest Code Status on File) Date Activated Date Inactivated Comments 12/19/2023 10:02 AM 12/19/2023 3:43 PM * Full Code Date Activated Date Inactivated Comments 03/15/2023 9:01 AM 03/24/2023 2:30 PM * Full Code Date Activated Date Inactivated Comments 03/03/2023 11:01 AM 03/15/2023 8:57 AM Care Teams Systems Software Engineer Relationship Specialty Start Date End Date Octavio Downey MD [address] [facility] [place] [address] PCP - General Internal Medicine 03/03/23 Octavio Downey MD [address] [place] [address] Referring Physician Internal Medicine 03/14/23 [place] [address] [place] [address] Consulting Physician Pulmonary Disease 03/14/23 Fred Hussein MD [address] [place] [place] [address] Consulting Physician Cardiology 03/14/23
--- OUTSIDE RECORDS SUMMARY | 2025-03-29 08:27 | XMS_ITS | Clinical Summary ---
Author Organization [facility] [place] Address [address] [facility] [place] [address] Care Team Providers Care Fiberglass Boat Parts Finisher Name Role Phone John Lin MD Primary Care Provider Medications No known medications Active Problems No known active problems Social History Tobacco Use Types Packs/Day Years Used Date Smoking Tobacco: Never Assessed Sex and Gender Information Value Date Recorded Sex Assigned at Not on file Legal Sex Male 9:16 AM CDT Gender Identity Not on file Sexual Orientation Not on file Last Filed Vital Signs Vital Sign Reading Time Taken Comments Blood Pressure 125/84 06/01/2021 10:02 AM CDT Pulse 60 06/01/2021 10:02 AM CDT Temperature 37 C (98.6 F) 06/01/2021 10:02 AM CDT Respiratory Rate 20 06/01/2021 10:02 AM CDT Oxygen Saturation 100% 06/01/2021 10:02 AM CDT Inhaled Oxygen Concentration - - Weight 79.4 kg (175 lb) 06/01/2021 10:02 AM CDT Height 180.3 cm (5' 11) 06/01/2021 10:02 AM CDT Body Mass Index 24.41 06/01/2021 10:02 AM CDT Plan of Treatment Health Maintenance Due Date Last Done Comments DTAP/TDAP/TD VACCINES (1 - Tdap) 1962 PNEUMOCOCCAL VACCINE 50+ YEARS (1 of 1 - PCV) 07/21/19 93 ZOSTER VACCINE (1 of 2) 1993 RSV VACCINE (60+ or ) (1 - 1-dose 75+ series) 2018 INFLUENZA VACCINE (#1) 2025 Insurance MEDICARE [employer] Care Teams Fiberglass Boat Parts Finisher Relationship Specialty Start Date End Date John Lin MD [address] [place] [phone] PCP - General Internal Medicine 06/01/21
--- OUTSIDE RECORDS SUMMARY | 2025-03-29 08:27 | XMS_ITS | Encounter Summary ---
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 file Not [...] Description 04/02/2025 2:00 PM CDT Office Visit [facility] Orthopedics [address] [phone] [place] [address] [address] documented as of this encounter Procedures Procedure Name Priority Date/Time Associated Diagnosis Comments SARS-COV-2 (COVID-19) IN HOUSE Routine 02/22/2020 10:40 AM CDT documented in this encounter Results * SARS-COV-2 (COVID-19) IN HOUSE (02/22/2020 10:40 AM CDT) COVID-19 PCR Not detected Not detected, Invalid 02/22/2020 11:54 PM CDT [facility] Microbiology SPECIMEN FROM NASOPHARYNGEAL STRUCTURE / Unknown Collection / Unknown 02/22/2020 10:40 AM CDT 02/22/2020 4:21 PM CDT Narrative [facility] - 02/22/2020 11:54 PM CDT This Real Time RT-PCR assay was developed and its performance characteristics determined by [facility]. This test has been authorized [...] LAB - MICROBIOLOGY ORDERABLES Fi nal Result [facility] [address] [place] [address], [facility] [phone] documented in this encounter Visit Diagnoses Not on filedocumented in this encounter Additional Health Concerns Infection Onset Date Last Indicated Resolved Time COVID-19 Under Investigation 02/22/2020 02/22/2020 02/22/2020 11:54 PM CDT documented as of this encounter Care Teams Party Plan Sales Agent Relationship Specialty Start Date End Date Ablert Smith DO [address] [place] [phone] PCP - General Internal Medicine 04/02/24 documented as of this encounter
[2025-03-29 15:53] LABS: Prostate Specific Antigen 0.3 ng/mL (< OR = 4.0)
[2025-04-03 02:07] LABS: Free Testosterone (Direct) 1.9 pg/mL (6.6-18.1)
== END 2025-03-29 08:21 | disposition home or self-care (01) ==
PROVIDERS: PCP Internal Medicine; Visit Provider Internal Medicine
DX: Z12.5 Encounter for screening for malignant neoplasm of prostate (principal); E29.1 Testicular hypofunction
CPT/HCPCS: 36415; 84153; 84402; 84403; G0103

== ENCOUNTER 2025-05-01 13:42 | Outpatient (CLI) | payer MEDICARE, OTHER, SELFPAY ==
--- NOTE | ~2025-05-01 | XR_ITS ---
MODIFIED ESOPHAGRAM HISTORY: Choking episode TECHNIQUE: Modified barium esophagram was performed on 05/01/2025. I administered fluoroscopy and performed the exam with speech pathologist. Patient was seated for lateral fluoroscopic imaging for ingestion of thin liquids, pudding, solids and quantified amounts, followed by thin liquids in uncontrolled amounts. This was recorded on tape. A single fluoroscopic spot image was also recorded. The DAP for this procedure was 0.78 Gycm2. The amount of fluoroscopy time used during this procedure was 1.1 minutes. FINDINGS: Oral stage: Adequate function. Pharyngeal stage: Adequate function. Cervical/esophageal stage: Adequate function. IMPRESSION: Patient tolerated regular consistency oral feedings in the upright position. Please correlate with speech pathologist findings and specific feeding recommendations. Reviewed, dictated and finalized at location A. IMPRESSION: Patient tolerated regular consistency oral feedings in the upright position. Please correlate with speech pathologist findings and specific feedi ng recommendations.
--- NOTE | 2025-05-01 14:33 | REHSTMBS ---
Assessment and note entered by Shahnaz Lawson, ADMIN DIR Modified Barium Swallow Evaluation Feeding Type Recommended Oral Food Consistency Regular, Level 7 Liquid Consistency Thin (0) ST Clinical Summary The patient is a 79 year old male referred for a MBS study secondary to noted coughing with liquids and some solids over the course of the past year. More recently the patient reported the risk management professional noted some lung infiltrates and requested the MBS to r/o an aspiration risk. The patient was seen in a lateral view and presented the following consistencies: 5cc/tsp thin liquid, thin liquid via a cup and straw, pudding mixed with barium paste, and cracker coated with barium paste. Oral Stage: Timely oral preparation and transit noted for all consistencies. Pharyngeal Stage: The patients swallow function was viewed to be timely across consistencies without viewed aspiration or penetration. In addition no residual was viewed to remain in the valleculae or pyriform sinus across consistencies. Recommend 1. Regular Diet 2. Thin liquid 3. No further speech services indicated at this time. Thank you for the consult. Please see the radiologist report for additional findings.
--- OUTSIDE RECORDS SUMMARY | 2025-05-01 14:56 | XMS_ITS | Clinical Summary ---
Author Organization [facility] Address [address] [place] [address] Care Team Providers Care Union Laborer Name Role Phone Octavio Downey MD Primary Care Provider + Octavio Downey MD Unavailable [phone] Cookie Voss MD Unavailable [phone] Fred Hussein MD Unavailable [phone] Allergies No known active allergies Medications furosemide [...] 1 capsule (0.5 mg total) 4 Active benzonatate (TESSALON) 200 mg capsuleIndicati ons:Acute non-recurrent frontal sinusitis Take 1 capsule (200 mg total) by mouth 3 (three) times a day as needed for cough 30 capsule 5 Active amoxicillin-cla vulanate (AUGMENTIN) 875-125 mg per tabletIndicatio ns:Acute cough Take 1 tablet by mouth 2 (two) times a day for 7 days 14 tablet 5 025 Active Problems Problem Noted Date Diagnosed Date Physical deconditioning 03/15/2023 COPD exacerbation 03/14/2023 Severe malnutrition 03/14/2023 Physical debility 03/14/2023 Moderate malnutrition 03/04/2023 Sepsis without acute organ dysfunction 3 Acute respiratory failure with hypoxia 3 Systolic congestive heart failure 03/03/2023 BPH (benign prostatic hyperplasia) 03/03/2023 Decreased mobility 03/03/2023 Depression 03/03/2023 Chronic atrial fibrillation 03/03/[address] 02/26/2020 Overview (03/03/2023): [facility] 3369-40Q [id number] Implanted 02/26/20 Dr Childs RV: SJM 7122Q SN:[id number] 02/26/20 LV: SJM 1458Q SN:[id number] 02/26/20 JESSICA (obstructive sleep apnea) 04/25/2019 Overview [...] Description 03/27/2025 11:30 AM CDT Office Visit [facility] at [address] [address] Mirta Stephen NP Acute cough (Primary Dx); Acute non-recurrent frontal sinusitis from Last 3 Months Surgical History Surgery Date Site/Laterality Comments MA UNLISTED PROCEDURE ABDOME N PERITONEUM & OMENTUM [...] History of hypertension - (A dded by Conv) Personal history of other en docrine, [...] oz pur e alcohol) Social Connection and Isolation Panel Answer Date Recorded In a typical week, how many times do you talk on the phone with family, friends, or neighbors? More than three times a week 03/16/2023 How often do you get togethe r with friends or relatives? More than three times a week 03/16/2023 How often do you attend chur ch or voodoo services? Never 03/16/2023 Do you belong to any clubs o r organizations such as denominational groups, unions, fraternal or athletic groups, or [...] place to sleep or slept in a retirement (including now)? No 03/16/2023 Personal Safety Answer Date Recorded Have you ever been in or are you currently in a harmful physical or emotional relationship or is someone making you feel afraid or unsafe? Denies 12/19/2023 Sex and Gender Information Value Date Recorded Sex Assigned at Not on file Legal Sex Male 1:18 AM STATION ATTENDANT Gender Identity Not on file Sexual Orientation [...] , 05/19/2019 Medical Devices Implanted Type Area Graphic Arts Instructor Device Identifier Shelf Expiration Date Model / Serial / Lot Pacemaker-02/10 Implanted:01/27 (Quantity not on file) Pacemaker Left: Chest Procedures Procedure Name Priority Date/Time Associated Diagnosis Comments POC INFLUENZA A/B, COVID-19 ANTIGEN Routine 03/27/2025 11:38 AM CDT Acute cough CT ABDOMEN PELVIS W CONTRAST ED 09/09/2023 12:58 PM STATION ATTENDANT from Last 3 Months or Most Recently Relevant to Health Maintenance Results * POC Influenza A/B, COVID-19 antigen (03/27/2025 11:38 AM CDT) Influenza A Ag, POC Negative Negative [facility] Influenza B Ag, POC Negative Negative [facility] COVID-19 Ag POC Presumptive Negative Presumptive Negative, Invalid [facility] Nasal 03/27/2025 11:3 8 AM CDT us Mirta Stephen NP POINT OF CARE TEST ORDERAB LES Final Result [facility] [address] [place] [address] * CT Abdomen Pelvis W Contrast (09/09/2023 12:58 PM STATION ATTENDANT) Anatomical Region Laterality Modality Body N/A Computed Tomogra phy 09/09/2023 1:09 PM STATION ATTENDANT Impressions 09/09/2023 1:09 PM STATION ATTENDANT 1. Large left rectus abdominis hematoma measuring [...] Brown II, D.O. Narrative 09/09/2023 1:09 PM STATION ATTENDANT EXAMINATION: CT ABDOMEN PELVIS W CONTRAST DATE: [...] Recently Relevant to Health Maintenance Insurance MEDICARE [employer] MEDICARE FOR LIFE MEDICARE FOR LIFE MEDICARE Advance Directives For more information, please contact: [phone] Documents on File Type Date Recorded Patient Compliance Review Officer Expl anation ADVANCE DIRECTIVE 03/16/2023 3:19 PM POWER OF MANAGER FILTER-MEDICAL ADVANCE DIRECTIVE 03/08/2023 5:06 PM POWER OF MANAGER FILTER-MEDICAL Power of Dry Cleaner Presser 03/04/2023 11:54 AM * Full Code (Latest Code Status on File) Date Activated Date Inactivated Comments 12/19/2023 10:02 AM 12/19/2023 3:43 PM * Full Code Date Activated Date Inactivated Comments 03/15/2023 9:01 AM 03/24/2023 2:30 PM * Full Code Date Activated Date Inactivated Comments 03/03/2023 11:01 AM 03/15/2023 8:57 AM Care Teams Union Laborer Relationship Specialty Start Date End Date Octavio Downey MD [address] [place] [address] PCP - General Internal Medicine 03/03/23 Octavio Downey MD [address] [facility] [address] [place] [address] Referring Physician Internal Medicine 03/14/23 [place] [address] [facility] [address] [place] [address] Consulting Physician Pulmonary Disease 03/14/23 Fred Hussein MD [address] [facility] [address] [place] [address] Consulting Physician Cardiology 03/14/23
--- OUTSIDE RECORDS SUMMARY | 2025-05-01 14:56 | XMS_ITS | Encounter Summary ---
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 Not [...] Care Team (Late st Contact Info) Description 07/02/2025 2:00 PM APARTMENT RENTAL AGENT Office Visit [facility] Orth[facility] [address] [address] [place] [address] [address] documented as of this encounter Procedures Procedure Name Priority Date/Time Associated Diagnosis Comments SARS-COV-2 (COVID-19) IN HOUSE Routine 02/22/2020 10:40 AM CDT documented in this encounter Results * SARS-COV-2 (COVID-19) IN HOUSE (02/22/2020 10:40 AM CDT) COVID-19 PCR Not detected Not detected, Invalid 02/22/2020 11:54 PM CDT [facility] Microbiology SPECIMEN FROM NASOPHARYNGEAL STRUCTURE / Unknown Collection / Unknown 02/22/2020 10:40 AM CDT 02/22/2020 4:21 PM CDT Narrative [facility] - 02/22/2020 11:54 PM CDT This Real Time RT-PCR assay was developed and its performance characteristics determined by [facility]. This test has been [...] LAB - MICROBIOLOGY ORDERABLES Fi nal Result [facility] [address] [place] [address], [facility] [phone] documented in this encounter Visit Diagnoses Not on filedocumented in this encounter Additional Health Concerns Infection Onset Date Last Indicated Resolved Time COVID-19 Under Investigation 02/22/2020 02/22/2020 02/22/2020 11:54 PM CDT documented as of this encounter Care Teams Managing Broker Relationship Specialty Start Date End Date Albert Smith DO [address] [place] [phone] PCP - General Internal Medicine 04/02/24 documented as of this encounter
--- OUTSIDE RECORDS SUMMARY | 2025-05-01 14:56 | XMS_ITS | Encounter Summary ---
Author Organization [facility] Address [address] [place] [address] Phone Care Team Providers Care Fur Blower Operator Name Role Phone John Lin MD Primary Care Provider [phone] Octavio Downey MD Primary Care Provider + Octavio Downey MD Unavailable [phone] Cookie Voss MD Unavailable [phone] Fred Hussein MD Unavailable [phone] Encounter Details Date Type Department Care Team [...] on file Legal Sex Male 1:18 AM BIZTALK ARCHITECT Gender Identity Not on file Sexual Orientation [...] documented as of this encounter Care Teams Fur Blower Operator Relationship Specialty Start Date End Date John Lin MD [address] [place] [address] PCP - General 12/15/16 03/02/23 Octavio Downey MD [address] [place] [address] PCP - General Internal Medicine 03/03/23 Octavio Downey MD [address] [place] [address] [place] [address] Referring Physician Internal Medicine 03/14/23 [place] [address] [place] [address] [place] [address] Consulting Physician Pulmonary Disease 03/14/23 Fred Hussein MD [address] [place] [address] [place] [address] Consulting Physician Cardiology 03/14/23 documented as of this encounter
--- OUTSIDE RECORDS SUMMARY | 2025-05-01 14:56 | XMS_ITS | Clinical Summary ---
Author Organization [facility] [place] Address [address] [facility] [place] [address] Care Team Providers Care Heatset Winder Operator Name Role Phone John Lin MD [...] 2018 INFLUENZA VACCINE (#1) 2025 Insurance MEDICARE [employer] Care Teams Heatset Winder Operator Relationship Specialty Start Date End Date John Lin MD [address] [place] [phone] PCP - General Internal Medicine 06/01/21
--- OUTSIDE RECORDS SUMMARY | 2025-05-01 14:56 | XMS_ITS | Clinical Summary ---
Author Organization [facility] Address [address] [facility] [place] [address] Care Team Providers Care Gas Compressor Turbine Operator Name Role Phone Albert Smith DO Primary Care Provider [phone] Source Comments [facility],non-owned Affiliates and Associated Physician Practices is amultiple site organization consisting of ambulatory clinics and hospital sitesin [place], [place], [place] and [place]. This disclosure is being madepursuant to the Care Everywhere program and may not contain all information available regarding this patient. Last updated 18.[facility] Allergies Active Allergy Reactions Criticality Noted Date [...] mg by mouth once daily Active Multiple Vitamins-Manager Spa als (MULTIVITAMIN ADULT PO) Take by mouth [...] MCG capsule 1 (one) capsule 5 Active Hospital, Clinic, or Other Facility Administered Medication Ordered Dose Route Frequency Start Date End Date Status methylPREDNISolone acetate (DEPO-Medrol) injection 160 mgIndications:Primary osteoarthritis of both knees 160 mg IX ONCE 04/02/2025 04/02/2025 Ended lidocaine PF (Xylocaine MPF) 1 % injection 6 mLIndications:Primary osteoarthritis of both knees 6 mL IX ONCE 04/02/2025 04/02/2025 Ended Active Problems Problem Noted Date Diagnosed Date Renal insufficiency 07/16/2020 Overview (07/16/2020): 07/18 BUN 30 creatinine 1.34 GFR 51 02/15 BUN 29 creatinine 1.2 01/14 BUN 19 creatinine 1.19 Bi V ICD 02/26/2020 Overview (02/26/2020): SJM 3369-40Q [id number] Implanted 02/26/20 Dr Childs RV: SJM 7122Q SN:[id number] 02/26/20 LV: SJM 1458Q SN:[id number] 02/26/20 Nonrheumatic tricuspid valve regurgitation 01/29 Coronary artery disease involving klawock coronar y artery 11/01/2019 Overview (11/22/2019): 06/14 [...] new focal RWMAs, severe LAE, mild BRIANDA, [id number] MR, mild AI/TR/PI, RVSP 38, no pericardial [...] closed, initial encounter 05/20/2019 01/01/2020 Pneumothorax, traumatic 05/19/201912/2019 Precordial pain 07/06/2018 11/01/2019 Borderline high blood pressure 07/15/2017 07/15/2017 Encounters Date Type Department Care Team Description 04/02/2025 2:10 PM CDT Ancillary Procedure [facility] - Radiology [address] [place] [phone] John Hammonds MD Primary osteoarthritis of both knees 04/02/2025 2:00 PM CDT Office Visit [facility] [address] [place] [address], [address] [place] [address] John Hammonds MD Primary osteoarthritis of both knees (Primary Dx) from Last 3 Months Immunizations Immunization Administration [...] Answer Date Recorded Patient Health Questionnaire-2 Score 3 04/02/2025 Sex and Gender Information Value Date Recorded Sex Assigned at Not on file Legal Sex Male 12:14 PM CDT Gender Identity Not on file Sexual Orientation Not on file 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 Not on angela e Last Filed Vital Signs Vital Sign Reading Time Taken Comments Blood Pressure 120/70 06/27/2020 2:49 PM CDT Pulse 62 06/27/2020 2:49 PM CDT Temperature 37.1 C (98.7 F) 11/01/2019 8:34 AM BARN AND PROPERTY MANAGER Respiratory Rate 10 05/09/2020 3:19 PM CDT Oxygen Saturation 98% 06/27/2020 2:49 PM CDT Inhaled Oxygen Concentration - - Weight 77.1 kg (170 lb) 04/02/2024 2:31 PM CDT Height 177.8 cm (5' 10) 04/02/2024 2:31 PM CDT Body Mass Index 24.39 04/02/2024 2:31 PM CDT Plan of Treatment Upcoming Encounters Date Type Department Care Team (Late st Contact Info) Description 07/02/2025 2:00 PM BARN AND PROPERTY MANAGER Office Visit [facility] [address] [address] [place] [address] [address] Health Maintenance Due Date Last Done Comments MEDICARE AWV 12 MONTHS 1945 DTAP/TDAP/TD VACCINES (1 - Tdap) 1962 PNEUMOCOCCAL VACCINE 50+ (1 of 1 - PCV) 1993 ZOSTER VACCINE (1 of 2) 1993 Respiratory Syncytial Virus (RSV) Vaccine Pt: or over 60 yrs (1 - 1-dose 75+ series) 2018 COVID-19 VACCINE (3 - 2023-2 5 season) 2024 10/21/2020, 09/29/2020 INFLUENZA VACCINE [...] on patient's age to complete this topic Procedures Procedure Name Priority Date/Time Associated Diagnosis Comments XR KNEE BILAT 3VW Routine 04/02/2025 2:2 2 PM CDT Primary osteoarthritis of both knees from Last 3 Months Results * XR Knee Bilat 3Vw (04/02/2025 2:22 PM CDT) Narrative [facility] [address] - 04/02/2025 2:22 PM CDT Please see progress note in Epic for results. us Jhon Hammonds MD DIAGNOSTIC IMAGING ORDERABLES Final Result Performing Organization Address City/State/[facility] Co de Phone Number [facility] [address] from Last 3 Months Insurance [employer] Address: [address] [place] [address] MEDICARE MEDICARE MEDICARE Advance Directives * Full Code (Latest Code Status on File) Date Activated Date Inactivated Comments 05/19/2019 4:57 PM 05/23/2019 2:03 PM Care Teams Gas Compressor Turbine Operator Relationship Specialty Start Date End Date Albert Smith DO [address] [place] [phone] PCP - General Internal Medicine 04/02/24
--- OUTSIDE RECORDS SUMMARY | 2025-05-01 14:56 | XMS_ITS | Encounter Summary ---
Author Organization [facility] Address [address] [place] [address] Phone Care Team Providers Care Traffic Engineer Name Role Phone John Lin MD Primary Care Provider [phone] Octavio Downey MD Primary Care Provider + Octavio Downey MD Unavailable [phone] Cookie Voss MD Unavailable [phone] Fred Hussein MD Unavailable [phone] Encounter Details Date Type Department Care Team (Late st Contact Info) Description 09/18/2019 Orders Only [facility] Medicine Neurology Outreach [address] [place] [address] Scanning, Provider Social History Tobacco Use Types Packs/Day Years Used Date Smoking Tobacco: Former Smokeless Tobacco: Never Alcohol Use Standard Drinks/Week Comments No 0 (1 standard drink = 0.6 oz pur e alcohol) Sex and Gender Information Value Date Recorded Sex Assigned at Not on file Legal Sex Male 1:18 AM DATA ENTRY OPERATOR Gender Identity Not on file Sexual Orientation [...] documented as of this encounter Care Teams Traffic Engineer Relationship Specialty Start Date End Date John Lin MD [address] [place] [address] PCP - General 12/15/16 03/02/23 Octavio Downey MD [address] [facility] [place] [address] PCP - General Internal Medicine 03/03/23 Octavio Downey MD [address] [facility] 1 [place] [address] Referring Physician Internal Medicine 03/14/23 [place] [address] [facility] [address] [place] [address] Consulting Physician Pulmonary Disease 03/14/23 Fred Hussein MD [address] [facility] [address] [place] [address] Consulting Physician Cardiology 03/14/23 documented as of this encounter
--- OUTSIDE RECORDS SUMMARY | 2025-05-01 14:56 | XMS_ITS | Clinical Summary ---
Author Organization [facility] Address [facility] [place] [address] Care Team Providers Care Die Finisher Forging Name Role Phone Unavailable Primary Care Provider [...] COVID-19 Vaccine ( - 2023-2 5 season) 2025 Meningococcal B Vaccine Aged Out No l onger eligible based on patient's age to complete this topic Meningococcal Vaccine Aged Out No russell aquiles eligible based on patient's age to complete this topic RSV Immunizations Under 20 Months Aged Out No longer eligible based on patient's age to complete this topic
== END 2025-05-01 13:43 | disposition home or self-care (01) ==
PROVIDERS: PCP Internal Medicine; Visit Provider Internal Medicine
DX: R09.89 Other specified symptoms and signs involving the circulatory and respiratory systems (principal)
CPT/HCPCS: 74230; 92611

== ENCOUNTER 2025-06-06 08:38 | Outpatient (CLI) | payer MEDICARE, OTHER, SELFPAY ==
[2025-06-06 11:15] LABS: Hematocrit 47.9 % (42.0-52.0); Hemoglobin 15.1 g/dL (14.0-18.0); Immature Granulocyte Percent A 0.3 % (0-0.5); Lymphocytes Absolute Auto 0.81 K/mm3 (0.9-3.2); Mean Corpuscular HGB Conc 31.5 g/dl (32-36); Mean Corpuscular Hemoglobin 29.4 pg (26-34); Mean Corpuscular Volume 93.2 fl (80-100); Nucleated Red Blood Cells Absolute Auto 0.000 K/mm3 (0.0-0.012); Nucleated Red Blood Cells Perc 0.0 % (0.0-0.2); Platelet Count Result 150 k/mm3 (150-375); Red Blood Count 5.14 M/mm3 (4.6-6.20); White Blood Count 6.6 K/mm3 (4.5-10.0)
[2025-06-06 11:21] LABS: Alanine Aminotransferase 47 U/L (6-50); Albumin Level 4.2 g/dL (3.5-5.1); Alkaline Phosphatase 57 U/L (38-126); Anion Gap 6 mmol/L (4-12); Aspartate Amino Transferase 69 U/L (17-59); Bilirubin,Total 1.1 mg/dL (0.2-1.3); Blood Urea Nitrogen 43 mg/dL (9-20); Calcium 9.1 mg/dL (8.4-10.2); Carbon Dioxide 33 mmol/L (22-30); Chloride 97 mmol/L (98-107); Cholesterol 125 mg/dL (0-200); Estimated Glomerular Filt Rate 46; Glucose 85 mg/dL (65-110); HDL Direct 37 mg/dL; Potassium 4.5 mmol/L (3.4-5.0); Sodium 136 mmol/L (137-145); Total Protein 6.9 g/dL (6.3-8.2); Triglycerides 74 mg/dL (<150)
== END 2025-06-06 08:39 | disposition home or self-care (01) ==
LOC: ANHGOSHLAB 08:40
PROVIDERS: PCP Internal Medicine
DX: E78.00 Pure hypercholesterolemia, unspecified (principal); I10 Essential (primary) hypertension; I25.5 Ischemic cardiomyopathy; I34.0 Nonrheumatic mitral (valve) insufficiency; I35.1 Nonrheumatic aortic (valve) insufficiency; I36.1 Nonrheumatic tricuspid (valve) insufficiency; I47.29 Other ventricular tachycardia; I48.21 Permanent atrial fibrillation; I50.22 Chronic systolic (congestive) heart failure; R55 Syncope and collapse
CPT/HCPCS: 36415; 80053; 80061; 85025

== ENCOUNTER 2025-06-24 12:50 | Outpatient (CLI) | payer MEDICARE, OTHER, SELFPAY ==
--- OUTSIDE RECORDS SUMMARY | 2025-06-24 14:18 | XMS_ITS | Clinical Summary ---
Author Organization [facility] Address [address] [place] [address] Care Team Providers Care Ink Maker Name Role Phone Albert Smith DO Primary Care Provider [phone] Source Comments [facility],non-owned Affiliates and Associated Physician Practices is amultiple site organization consisting of ambulatory clinics and hospital sitesin [place], [place] and [place]. This disclosure is being madepursuant to the Care Everywhere program and may not contain all information available regarding this patient. Last updated 18.[facility] Allergies Active Allergy Reactions Criticality Noted Date [...] mg by mouth once daily Active Multiple Vitamins-Intake Man als (MULTIVITAMIN ADULT PO) Take by mouth [...] V ICD 02/26/2020 Overview (02/26/2020): SJM 3369-40Q [id number] Implanted 02/26/20 Dr Childs RV: SJM 7122Q SN:[id number] 02/26/20 LV: SJM 1458Q [id number] 02/26/20 Nonrheumatic tricuspid valve regurgitation 01/29 Coronary artery disease involving deering coronar y artery 11/01/2019 Overview (11/22/2019): 06/14 [...] new focal RWMAs, severe LAE, mild BRIANDA, ctul-aj-kqjyahtx MR, mild AI/TR/PI, RVSP 38, no pericardial [...] Description 04/02/2025 2:10 PM CDT Ancillary Procedure [facility] - Radiology [address] [place] [phone] John Hammonds MD Primary osteoarthritis of both knees 04/02/2025 2:00 PM CDT Office Visit [facility] [address] [facility], [address] [place] [address] John Hammonds MD Primary osteoarthritis of both [...] 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 e Last Filed Vital Signs Vital Sign Reading Time Taken Comments Blood Pressure 120/70 06/27/2020 2:49 PM CDT Pulse 62 06/27/2020 2:49 PM CDT Temperature 37.1 C (98.7 F) 11/01/2019 8:34 AM PACKAGER OR PACKER AND WEIGHER Respiratory Rate 10 05/09/2020 3:19 PM CDT Oxygen Saturation 98% 06/27/2020 2:49 PM CDT Inhaled Oxygen Concentration - - Weight 77.1 kg (170 lb) 04/02/2024 2:31 PM CDT Height 177.8 cm (5' 10) 04/02/2024 2:31 PM CDT Body Mass Index 24.39 04/02/2024 2:31 PM CDT Plan of Treatment Upcoming Encounters Date Type Department Care Team (Late st Contact Info) Description 07/02/2025 2:00 PM PACKAGER OR PACKER AND WEIGHER Office Visit [facility] [address] [address] [place] [address] [address] Health Maintenance Due Date Last Done Comments MEDICARE AWV 12 MONTHS 1945 DTAP/TDAP/TD VACCINES (1 - Tdap) 1962 PNEUMOCOCCAL VACCINE 50+ (1 of 1 - PCV) 1993 ZOSTER VACCINE (1 of 2) 1993 Respiratory Syncytial Virus (RSV) Vaccine Pt: or over 60 yrs (1 - 1-dose 75+ series) 2018 COVID-19 VACCINE (3 - 2024-2 6 season) 2025 10/21/2020, 09/29/2020 INFLUENZA VACCINE (#1) 2025 DEPRESSION [...] Bilat 3Vw (04/02/2025 2:22 PM CDT) Narrative [facility] [address] - 04/02/2025 2:22 PM CDT Please see progress note in Epic for results. us John Hammonds MD DIAGNOSTIC IMAGING ORDERABLES Final Result [facility] [address] from Last 3 Months Insurance [facility] MEDICARE MEDICARE MEDICARE [facility] Advance Directives * Full Code (Latest Code Status on File) Date Activated Date Inactivated Comments 05/19/2019 4:57 PM 05/23/2019 2:03 PM Care Teams Ink Maker Relationship Specialty Start Date End Date Albert Smith DO [address] [place], [place] [phone] PCP - General Internal Medicine 04/02/24
--- OUTSIDE RECORDS SUMMARY | 2025-06-24 14:18 | XMS_ITS | Encounter Summary ---
Author Organization [facility] Address [address] [place] [address] Phone Care Team Providers Care Barber Shop Manager Name Role Phone John Lin MD Primary Care Provider [phone] Octavio Downey MD Primary Care Provider + Octavio Downey MD Unavailable [phone] Cookie Voss MD Unavailable [phone] Fred Hussein MD Unavailable Encounter Details Date Type Department Care Team (Late st Contact Info) Description 09/18/2019 Orders Only [facility] Medicine Neurology Outreach [address] [place] [address] Scanning, Provider Social History Tobacco Use Types Packs/Day Years Used Date Smoking Tobacco: Former Smokeless Tobacco: Never Alcohol Use Standard Drinks/Week Comments No 0 (1 standard drink = 0.6 oz pur e alcohol) Sex and Gender Information Value Date Recorded Sex Assigned at Not on file Legal Sex Male 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 Gender Identity Not on file Sexual Orientation [...] documented as of this encounter Care Teams Barber Shop Manager Relationship Specialty Start Date End Date John Lin MD [address] [place] [address] PCP - General 12/15/16 03/02/23 Octavio Downey MD [address] [facility] [place] [address] PCP - General Internal Medicine 03/03/23 Octavio Downey MD [address] [facility] 1 [place] [address] Referring Physician Internal Medicine 03/14/23 [place] [address] [facility] [address] [place] [address] Consulting Physician Pulmonary Disease 03/14/23 Fred Hussein MD [address] [facility] [address] [place] [address] Consulting Physician Cardiology 03/14/23 documented as of this encounter
--- OUTSIDE RECORDS SUMMARY | 2025-06-24 14:18 | XMS_ITS | Clinical Summary ---
Author Organization [facility] [place] [place] Address [address] [facility] [place] [address] Care Team Providers Care Surgical Oncologist Name Role Phone John Lin MD Primary Care Provider [phone] Medications No known medications Active Problems No [...] 2018 INFLUENZA VACCINE (#1) 2025 Insurance MEDICARE [employer] Care Teams Surgical Oncologist Relationship Specialty Start Date End Date John Lin MD [address] [place] [phone] PCP - General Internal Medicine 06/01/21
--- OUTSIDE RECORDS SUMMARY | 2025-06-24 14:18 | XMS_ITS | Clinical Summary ---
Author Organization [facility] Address [address] [place] [address] Care Team Providers Care Pipe Stem Aligner Name Role Phone Octavio Downey MD Primary Care Provider + Octavio Downey MD Unavailable [phone] Cookie Voss MD Unavailable [phone] Fred Hussein MD Unavailable [phone] Allergies No known active allergies Medications furosemide [...] defibrillator in place 02/26/2020 Overview (03/03/2023): [facility] 3369-40Q [id number] Implanted 02/26/20 Dr Childs RV: [facility] 7122Q SN:[id number] 02/26/20 LV: [facility] 1458Q SN:[id number] 02/26/20 JESSICA (obstructive sleep apnea) 04/25/2019 Overview [...] Encounters Date Type Department Care Team Description 06/06/2025 11:47 AM CDT - 06/06/2025 11:59 PM CDT Hospital Encounter [facility] Imaging and Radiology [address] [place] [address] Other nonspecific abnormal finding of lung field Discharge Disposition: Discharge to home or self care 03/27/2025 11:30 AM CDT Office Visit [facility] Care at [address] [address] Mirta Stephen NP Acute cough (Primary Dx); Acute non-recurrent frontal sinusitis from Last 3 Months Surgical History Surgery Date Site/Laterality Comments LA UNLISTED PROCEDURE ABDOME N PERITONEUM & OMENTUM [...] week 03/16/2023 How often do you attend [facility] [employer] or temple services? Never 03/16/2023 Do you belong to any clubs o r organizations such as faith groups, unions, fraternal or athletic groups, or [...] place to sleep or slept in a fdc (including now)? No 03/16/2023 Personal Safety Answer Date Recorded Have you ever been in or are you currently in a harmful physical or emotional relationship or is someone making you feel afraid or unsafe? 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 Gender Identity Not on file Sexual [...] B Screening 1961 Well Visit 65+ 2008 Zoster Vaccine (2 of 2) 12/24/2018 10/29/2018 Depression Screening 03/14/2024 03/14/2023, 03/14/20 23 Fall Risk Assessment 07/13/2024 07/13/2023 Covid-19 Vaccine (4 - 2024- 6 season) 2025 05/23/2021, 10/21/2020, 09/29/2020 Influenza Vaccine (#1) 2025 4, 06/23/2021, 05/10/2020, Additional history exists Pneumococcal vaccine 65+ Completed 020, 10/27/2017, 06/11/2015, Additional history exists Abdominal Aortic Aneurysm (A AA) Screen Completed 09/09/2023, 05/19/2019 Medical Devices Implanted Type Area Fabric Stretcher Device Identifier Shelf Expiration Date Model / Serial / Lot Pacemaker-02/10 Implanted:01/27 (Quantity not on file) Pacemaker Left: Chest Procedures Procedure Name Priority Date/Time Associated Diagnosis Comments CT CHEST WO CONTRAST Schedule Routine, Read Routine (OP Routine) 06/06/2025 12:00 PM CDT Other nonspecific abnormal finding of lung field POC INFLUENZA A/B, COVID-19 ANTIGEN Routine 03/27/2025 11:38 AM CDT Acute cough CT ABDOMEN PELVIS W CONTRAST ED 09/09/2023 12:58 PM MEDICAID COLLECTION SPECIALIST from Last 3 Months or Most Recently Relevant to Health Maintenance Results * CT Chest WO Contrast (06/06/2025 12:00 PM CDT) Anatomical Region Laterality Modality Body N/A Computed Tomogra phy 06/06/2025 12:1 8 PM CDT Impressions 06/06/2025 12:18 PM CDT 1. Similar right lower lobe 1.0 cm groundglass nodule. 2. Similar left upper lobe 0.9 cm nodule with punctate calcification, series 3 image 70. 3. Similar ascending 4.6 cm aortic aneurysm, cardiomegaly, and findings suggestive of pulmonary arterial hypertension. 4. Chronic findings as above. Electronically signed by: Albert Brown II, D.O. Narrative 06/06/2025 12:18 PM CDT EXAMINATION: Computed tomography of the chest without intravenous contrast HISTORY: Nonspecific lung abnormality. TECHNIQUE: Transaxial computed tomographic images of the chest were obtained without intravenous contrast according to the standard. protocol. COMPARISON: 12/20/2024. FINDINGS: Mild atelectasis in the bilateral lung bases. Minimal mosaic attenuation throughout the lung parenchyma bilaterally. Similar right lower lobe 1.0 cm groundglass nodule, series 3 image 55. Cardiac mediastinal silhouette within normal limits. Pacer leads are intact. There is cardiomegaly. The ascending aorta remains aneurysmal measuring 4.6 cm. Main pulmonary artery is dilated consistent with pulmonary joint hypertension. Severe bilateral gynecomastia. Poststernotomy changes. Small hiatal hernia. Simple cyst in the right hepatic lobe. No acute osseous abnormality. Mild multilevel endplate changes in the visualized spine. Procedure Note Albert Brown II, DO - 06/06/2025 EXAMINATION: Computed tomography of the chest without intravenous contrast HISTORY: Nonspecific lung abnormality. TECHNIQUE: Transaxial computed tomographic images of the chest were obtained without intravenous contrast according to the standard. protocol. COMPARISON: 12/20/2024. FINDINGS: Mild atelectasis in the bilateral lung bases. Minimal mosaic attenuation throughout the lung parenchyma bilaterally. Similar right lower lobe 1.0 cm groundglass nodule, series 3 image 55. Cardiac mediastinal silhouette within normal limits. Pacer leads are intact. There is cardiomegaly. The ascending aorta remains aneurysmal measuring 4.6 cm. Main pulmonary artery is dilated consistent with pulmonary joint hypertension. Severe bilateral gynecomastia. Poststernotomy changes. Small hiatal hernia. Simple cyst in the right hepatic lobe. No acute osseous abnormality. Mild multilevel endplate changes in the visualized spine. IMPRESSION: 1. Similar right lower lobe 1.0 cm groundglass nodule. 2. Similar left upper lobe 0.9 cm nodule with punctate calcification, series 3 image 70. 3. Similar ascending 4.6 cm aortic aneurysm, cardiomegaly, and findings suggestive of pulmonary arterial hypertension. 4. Chronic findings as above. Electronically signed by: Alon Moe II.ORivera Quan Casas MD IMG CT PROCEDURES Estella l Result * POC Influenza A/B, COVID-19 antigen (03/27/2025 11:38 AM CDT) Influenza A Ag, POC Negative Negative [facility] EDW Influenza B Ag, POC Negative Negative [facility] EDW COVID-19 Ag POC Presumptive Negative Presumptive Negative, Invalid [facility] Nasal 03/27/2025 11:3 8 AM CDT Mirta Stephen NP POINT OF CARE TEST ORDERAB LES Final Result [facility] [address] [place] [address] * CT Abdomen Pelvis W Contrast (09/09/2023 12:58 PM MEDICAID COLLECTION SPECIALIST) Anatomical Region Laterality Modality Body N/A Computed Tomogra phy 09/09/2023 1:09 PM MEDICAID COLLECTION SPECIALIST Impressions 09/09/2023 1:09 PM MEDICAID COLLECTION SPECIALIST 1. Large left rectus abdominis hematoma [...] Brown II, D.O. Narrative 09/09/2023 1:09 PM MEDICAID COLLECTION SPECIALIST EXAMINATION: CT ABDOMEN PELVIS W CONTRAST [...] Albert Brown II, D.O. Kelly العلي MD IM CT PROCEDURES Final Result from Last 3 Months or Most Recently Relevant to Health Maintenance Insurance MEDICARE FOR LIFE MEDICARE FOR LIFE MEDICARE [facility] FOR LIFE MEDICARE Advance Directives For more information, please contact: [phone] Documents on File Type Date Recorded Patient Sales Assistant Entertainment And Media Expl anation ADVANCE DIRECTIVE 03/16/2023 3:19 PM POWER OF FREIGHT FORWARDER-MEDICAL ADVANCE DIRECTIVE 03/08/2023 5:06 PM POWER OF FREIGHT FORWARDER-MEDICAL Power of Web Search Evaluator 03/04/2023 11:54 AM * Full Code (Latest Code Status on File) Date Activated Date Inactivated Comments 12/19/2023 10:02 AM 12/19/2023 3:43 PM * Full Code Date Activated Date Inactivated Comments 03/15/2023 9:01 AM 03/24/2023 2:30 PM * Full Code Date Activated Date Inactivated Comments 03/03/2023 11:01 AM 03/15/2023 8:57 AM Care Teams Pipe Stem Aligner Relationship Specialty Start Date End Date Octavio Downey MD [address] [facility] [place] [address] PCP - General Internal Medicine 03/03/23 Octavio Downey MD [address] [facility] 1 [place] [address] Referring Physician Internal Medicine 03/14/23 [place] [address] [address] [facility] [address] [place] [address] Consulting Physician Pulmonary Disease 03/14/23 Fred Hussein MD [address] [facility] [address] [place] [address] Consulting Physician Cardiology 03/14/23
--- OUTSIDE RECORDS SUMMARY | 2025-06-24 14:18 | XMS_ITS | Clinical Summary ---
Author Organization [facility] Address [address] [place] [address] Care Team Providers Care Film Recordist Name Role Phone Unavailable Primary Care Provider [...] 75+ series) 2018 COVID-19 Vaccine ( - 2024-2 6 season) 2025 Influenza Adult (#1) 2025 Hepatitis A Vaccines Aged Out No long er eligible based on patient's age to complete this topic Meningococcal B Vaccine Aged Out No l onger eligible based on patient's age to complete this topic Meningococcal Vaccine Aged Out No russell aquiles eligible based on patient's age to complete this topic RSV Immunizations Under 20 Months Aged Out No longer eligible based on patient's age to complete this topic
--- OUTSIDE RECORDS SUMMARY | 2025-06-24 14:18 | XMS_ITS | Encounter Summary ---
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 Not on file Not [...] st Contact Info) Description 07/02/2025 2:00 PM TRANSPORT ENGINEER Office Visit [facility] [address] [address] [place] [address] [address] documented as of this encounter Procedures Procedure Name Priority Date/Time Associated Diagnosis Comments SARS-COV-2 (COVID-19) IN HOUSE Routine 02/22/2020 10:40 AM CDT documented in this encounter Results * SARS-COV-2 (COVID-19) IN HOUSE (02/22/2020 10:40 AM CDT) COVID-19 PCR Not detected Not detected, Invalid 02/22/2020 11:54 PM CDT [facility] Microbiology SPECIMEN FROM NASOPHARYNGEAL STRUCTURE / Unknown Collection / Unknown 02/22/2020 10:40 AM CDT 02/22/2020 4:21 PM CDT Narrative [facility] - 02/22/2020 11:54 PM CDT This Real Time RT-PCR assay was developed and its performance characteristics determined by [facility]. This test has been [...] LAB - MICROBIOLOGY ORDERABLES Fi nal Result [facility] [address] [place] [address], [facility] [phone] documented in this encounter Visit Diagnoses Not on filedocumented in this encounter Additional Health Concerns Infection Onset Date Last Indicated Resolved Time COVID-19 Under Investigation 02/22/2020 02/22/2020 02/22/2020 11:54 PM CDT documented as of this encounter Care Teams Software Engineer Relationship Specialty Start Date End Date Albert Smith DO [address] [place] [phone] PCP - General Internal Medicine 04/02/24 documented as of this encounter
--- OUTSIDE RECORDS SUMMARY | 2025-06-24 14:18 | XMS_ITS | Encounter Summary ---
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 Gender Identity Not on file Sexual Orientation [...] documented as of this encounter Care Teams Ag Service Manager Relationship Specialty Start Date End Date John Lin MD [address] [place] [address] PCP - General 12/15/16 03/02/23 Octavio Downey MD [address] [facility] [place] [address] PCP - General Internal Medicine 03/03/23 Octavio Downey MD [address] [place] [address] Referring Physician Internal Medicine 03/14/23 [place] [address] [address] [place] [address] Consulting Physician Pulmonary Disease 03/14/23 Fred Hussein MD [address] [place] [address] Consulting Physician Cardiology 03/14/23 documented as of this encounter
[2025-06-24 18:49] LABS: Albumin Level 4.0 g/dL (3.5-5.1); Anion Gap 9 mmol/L (4-12); Blood Urea Nitrogen 26 mg/dL (9-20); Calcium 8.8 mg/dL (8.4-10.2); Carbon Dioxide 28 mmol/L (22-30); Chloride 100 mmol/L (98-107); Estimated Glomerular Filt Rate 45; Glucose 74 mg/dL (65-110); Sodium 137 mmol/L (137-145)
[2025-06-24 18:53] LABS: Parathyroid Intact 128.7 pg/mL (14.5-75.2)
[2025-06-24 18:56] LABS: Total Protein Urine Random 21 mg/dL; Ur Ttl Prot Creatinine Ratio 0.53 mg/mg (0-0.20)
[2025-06-24 18:57] LABS: Potassium 4.7 mmol/L (3.4-5.0)
== END 2025-06-24 12:51 | disposition home or self-care (01) ==
LOC: ANHGOSHLAB 12:53
PROVIDERS: PCP Internal Medicine; Visit Provider Internal Medicine Nephrology
DX: I12.9 Hypertensive chronic kidney disease with stage 1 through stage 4 chronic kidney disease, or unspecified chronic kidney disease (principal); N18.31 Chronic kidney disease, stage 3a; N25.81 Secondary hyperparathyroidism of renal origin; E55.9 Vitamin D deficiency, unspecified
CPT/HCPCS: 36415; 80069; 82306; 82570; 83970; 84156

== ENCOUNTER 2025-06-26 10:51 | Inpatient (IN) | payer MEDICARE, OTHER, SELFPAY ==
[2025-06-26] VITALS (7 sets, daily range): BP systolic 106–110; BP diastolic 71–73; PULSE 85–89; RESP 16–20; TEMP 36.6–36.9; O2SAT 95–97; BMI 26.4
--- NOTE | 2025-06-26 | ECHO_ITS ---
Patient Info Name: Winston Valles Age: 79 years : 1945 Gender: Male Ht: 70 in Wt: 186 lbs BSA: 2.05 m2 HR: 84 bpm BP: 106 / 73 mmHg Technical Quality: Good Exam Date: 06/26/2025 3:01 PM Patient Status: I Admit Date: 06/26/2025 Exam Type: CA echo dop color flow w con Complete two-dimensional, color flow and Doppler transthoracic echocardiogram is performed with contrast to opacify the left ventricle and to improve the deliniation of the left ventricle endocardial borders. Staff Referring Physician: Nitesh Tanner MD Dairy Helper: Gabby Narayan Attending Provider: Kyle Irby MD Contrast/Agitated Saline Contrast/Ag. Saline: Definity Amount: 2.00 ml Summary 1. Definity contrast administered improved wall motion interpretation. 2. Left ventricular chamber dimension is moderately enlarged. 3. Left ventricular systolic function is mildly reduced, estimated at 45-50. 4. There is mild concentric increased left ventricular wall thickness. 5. The left ventricular diastolic function is normal. 6. E/e' 7 is not elevated. 7. Right ventricular chamber dimension is mildly enlarged. 8. Right ventricular systolic function is at least moderately reduced and with abnormal TAPSE 0.8 cm. 9. Linear artifact in right ventricle suggestive of catheter(s), pacemaker lead(s), or ICD lead(s). 10. Left atrial chamber dimension is severely enlarged. 11. Right atrial chamber dimension is severely enlarged. 12. Linear artifact in the right atrium suggestive of catheter(s), pacemaker lead(s), or ICD lead(s). 13. There is mild aortic valve sclerosis. 14. There is moderate aortic valve regurgitation. 15. The mitral valve has a mildly calcified annulus. 16. There is moderate mitral valve regurgitation. 17. There is moderate tricuspid valve regurgitation. 18. Moderate pulmonary hypertension, estimated pulmonary arterial systolic pressure is 54 mmHg. 19. Dilated inferior vena cava with >50% collapse upon inspiration consistent with elevated right atrial pressure, 10 mmHg. Left Ventricle Definity contrast administered improved wall motion interpretation. Left ventricular chamber dimension is moderately enlarged. Left ventricular systolic function is mildly reduced, estimated at 45-50. There is mild concentric increased left ventricular wall thickness. The left ventricular diastolic function is normal. E/e' 7 is not elevated. Right Ventricle Linear artifact in right ventricle suggestive of catheter(s), pacemaker lead(s), or ICD lead(s). Right ventricular chamber dimension is mildly enlarged. Right ventricular systolic function is at least moderately reduced and with abnormal TAPSE 0.8 cm. Left Atria Left atrial chamber dimension is severely enlarged. Right Atria Right atrial chamber dimension is severely enlarged. Linear artifact in the right atrium suggestive of catheter(s), pacemaker lead(s), or ICD lead(s). Aortic Valve The aortic valve is trileaflet. There is mild aortic valve sclerosis. There is no aortic valve stenosis. There is moderate aortic valve regurgitation. Pulmonic Valve There is no pulmonic regurgitation. Mitral Valve The mitral valve has a mildly calcified annulus. There is no mitral valve stenosis. There is moderate mitral valve regurgitation. Tricuspid Valve There is moderate tricuspid valve regurgitation. Moderate pulmonary hypertension, estimated pulmonary arterial systolic pressure is 54 mmHg. Pericardium/Pleural There is no pericardial effusion. Inferior Vena Cava Dilated inferior vena cava with >50% collapse upon inspiration consistent with elevated right atrial pressure, 10 mmHg. Aorta The aortic root size at the sinus of Valsalva is normal. Left Ventricular Outflow Tract Name Value Normal LVOT 2D LVOT Diameter 2.1 cm LVOT Doppler LVOT Peak Velocity 75 cm/s LVOT Peak Gradient 2 mmHg LVOT Mean Gradient 1 mmHg LVOT VTI 13 cm LVOT Stroke Volume 48 ml LVOT CO 4.0 l/min LVOT CI 2.0 l/min/m2 Pulmonic Valve Name Value Normal RVOT Doppler RVOT Peak Velocity 40 cm/s RVOT Peak Gradient 1 mmHg PV Doppler PV Peak Velocity 65 cm/s PV Peak Gradient 2 mmHg Mitral Valve Name Value Normal MV Diastolic Function MV E Peak Velocity 82 cm/s MV A Peak Velocity 30 cm/s MV E/A 2.7 MV Decel Time (PW) 191 ms MV Annular TDI MV E/e' (Septal) 9.6 MV E/e' (Lateral) 6.8 MV E/e' (Average) 8.2 Tricuspid Valve Name Value Normal TV Regurgitation Doppler TR Peak Velocity 330 cm/s TR Peak Gradient 44 mmHg Estimated PAP/RSVP RA Pressure 10 mmHg <=5 PA Systolic Pressure 54 mmHg <36 RV Systolic Pressure 54 mmHg <36 Aortic Valve Name Value Normal AV Doppler AV Peak Velocity 114 cm/s AV Peak Gradient 5 mmHg AV Area (Cont Eq Felix) 2.4 cm2 AV DI (Felix) 0.66 AV Regurgitation 2D LVOT Area 3.6 cm2 Ventricles Name Value Normal LV Dimensions 2D/MM IVS Diastolic Thickness (2D) 0.6 cm 0.6-1.0 LVID Diastole (2D) 5.9 cm 4.2-5.8 LVIW Diastolic Thickness (2D) 1.0 cm 0.6-1.0 LVID Systole (2D) 4.7 cm 2.5-4.0 LVOT Diameter 2.1 cm LV Mass (2D Cubed) 177.90 g 88.00-224.00 LV Mass Index (2D Cubed) 87 g/m2 49-115 Relative Wall Thickness (2D) 0.32 <=0.42 LV Fractional Shortening/Ejection Fraction 2D/MM LV Fractional Shortening (2D) 20 % 25-43 LV EF (2D Teichholz) 41 % LV Diastolic Volume (4C MOD) 160 ml LV EF (4C MOD) 33 % LV Diastolic Volume (2C MOD) 165 ml LV EF (2C MOD) 49 % LV Diastolic Volume (BP MOD) 164 ml 62-150 LV Diastolic Volume Index (BP MOD) 80 ml/m2 34-74 LV Systolic Volume (BP MOD) 95 ml 21-61 LV Systolic Volume Index (BP MOD) 46 ml/m2 11-31 LV EF (BP MOD) 42 % 52-72 LV Diastolic Length (4C) 7.9 cm LV Systolic Length (4C) 7.0 cm LV Stroke Volume (4C MOD) 52 ml Atria Name Value Normal RA Dimensions RA Systolic Major Diamond Length (4C) 8.1 cm 2.1-2.7 RA Area (4C) 42.6 cm2 <=18.0 Report Signatures
--- NOTE | ~2025-06-26 | XR_ITS ---
EXAMINATION: XR chest 2V, 06/26/2025 11:40 CDT HISTORY: SOB COMPARISON: No comparisons available. Technique: 2 views obtained. Findings: COPD changes. Small basilar infiltrates and effusions. Moderate pulmonary venous congestion. No pneumothorax. Heart is normal size. Mediastinal and hilar contours are within normal limits. Poststernotomy. Left pacemaker. Impression: CHF. Superimposed probable pneumonia. Reviewed, dictated and finalized at location P. Impression: CHF. Superimposed probable pneumonia.
--- NOTE | ~2025-06-26 | XR_ITS ---
EXAMINATION: XR chest 2V, 06/27/2025 8:15 CDT HISTORY: Diuresis follow up COMPARISON: No comparisons available. Technique: 2 views obtained. Findings: Mild pulmonary venous congestion. COPD changes noted No pneumothorax. Moderate cardiomegaly. Mediastinal and hilar contours are within normal limits. Poststernotomy. Left pacemaker. Impression: CHF Reviewed, dictated and finalized at location P. Impression: CHF
--- NOTE | 2025-06-26 11:00 | ECG_ITS ---
Test Date: 2025-06-26 11:04:31 Measurements Intervals [place] Rate: 89 P: -79 WI: 62 QRS: -78 QRSD: 141 T: 2 QT: 391 QTc: 476 Interpretive Statements ELECTRONIC VENTRICULAR PACEMAKER WITH VENTRICULAR PREMATURE COMPLEX BASELINE ARTIFACT- V4-V6 NO FURTHER INTERPRETATION IS POSSIBLE ATYPICAL ECG No previous ECG available for comparison Electronically Signed On 06-26-2025 11:06:14 CDT by Aime Cross D.O.
[2025-06-26 11:31] LABS: Hematocrit 43.6 % (42.0-52.0); Hemoglobin 13.8 g/dL (14.0-18.0); Immature Granulocyte Percent A 0.3 % (0-0.5); Immature Platelet Fraction Pct 5.3 % (0.9-11.2); Lymphocytes Absolute Auto 0.52 K/mm3 (0.9-3.2); Mean Corpuscular HGB Conc 31.7 g/dl (32-36); Mean Corpuscular Hemoglobin 29.7 pg (26-34); Mean Corpuscular Volume 94.0 fl (80-100); Nucleated Red Blood Cells Absolute Auto 0.000 K/mm3 (0.0-0.012); Nucleated Red Blood Cells Perc 0.0 % (0.0-0.2); Platelet Count Result 116 k/mm3 (150-375); Red Blood Count 4.64 M/mm3 (4.6-6.20); White Blood Count 7.1 K/mm3 (4.5-10.0)
[2025-06-26 11:46] LABS: INR 1.2; Prothrombin Time 15.1 Seconds (11.1-14.7)
[2025-06-26 11:48] LABS: Partial Thromboplastin Time 29.8 Seconds (22.3-36.8)
[2025-06-26 12:05] LABS: Alanine Aminotransferase 24 U/L (6-50); Albumin Level 3.8 g/dL (3.5-5.1); Alkaline Phosphatase 57 U/L (38-126); Anion Gap 9 mmol/L (4-12); Aspartate Amino Transferase 33 U/L (17-59); Bilirubin,Total 1.4 mg/dL (0.2-1.3); Blood Urea Nitrogen 31 mg/dL (9-20); Calcium 8.5 mg/dL (8.4-10.2); Carbon Dioxide 29 mmol/L (22-30); Chloride 99 mmol/L (98-107); Estimated CRCL calculation 35 ml/min; Estimated Glomerular Filt Rate 43; Glucose 129 mg/dL (65-110); Potassium 3.9 mmol/L (3.4-5.0); Sodium 137 mmol/L (137-145); Total Protein 6.3 g/dL (6.3-8.2)
[2025-06-26 12:12] LABS: NT Pro B Type Natriuretic Pept 8820 pg/mL (19.9-100); Troponin I 0.019 ng/mL (0.000-0.034)
--- OUTSIDE RECORDS SUMMARY | 2025-06-26 12:24 | XMS_ITS | Clinical Summary ---
Author Organization [facility] Address [address] [place] [address] Care Team Providers Care Nailer Operator Name Role Phone Octavio Downey MD Primary Care Provider + Octavio Downey MD Unavailable [phone] Cookie Voss MD Unavailable [phone] Fred Hsusein MD Unavailable [phone] Allergies No known active allergies Medications furosemide [...] Cardiac defibrillator in place 02/26/2020 Overview (03/03/2023): [facility] 3369-40Q [id number] Implanted 02/26/20 Dr Childs RV: [facility] 7122Q SN:[id number] 02/26/20 LV: [facility] 1458Q SN:[id number] 02/26/20 JESSICA (obstructive sleep apnea) 04/25/2019 Overview [...] - 06/06/2025 11:59 PM CDT Hospital Encounter [facility] [address] [place] [address] Other nonspecific abnormal finding of lung field Discharge Disposition: Discharge to home or self care 03/27/2025 11:30 AM CDT Office Visit [facility] Care at [address] [address] Mirta Stephen NP Acute cough (Primary Dx); Acute non-recurrent frontal sinusitis from Last 3 Months Surgical History Surgery Date Site/Laterality Comments [place] UNLISTED PROCEDURE ABDOME N PERITONEUM & OMENTUM [...] week 03/16/2023 How often do you attend [facility] [employer] or yarsani services? Never 03/16/2023 Do you belong to any clubs o r organizations such as rastafari groups, unions, fraternal or athletic groups, or [...] on file Legal Sex Male 1:18 AM STILL CLEANER Gender Identity Not on file Sexual Orientation [...] 09/09/2023, 05/19/2019 Medical Devices Implanted Type Area Horseback Excavator Device Identifier Shelf Expiration Date Model / [...] PELVIS W CONTRAST ED 09/09/2023 12:58 PM STILL CLEANER from Last 3 Months or Most Recently [...] CDT) Influenza A Ag, POC Negative Negative [facility] EDW Influenza B Ag, POC Negative Negative [facility] COVID-19 Ag POC Presumptive Negative Presumptive Negative, Invalid [facility] Nasal 03/27/2025 11:3 8 AM CDT Mirta Stephen NP POINT OF CARE TEST ORDERAB LES Final Result [facility] EDW [address] [place] [address] * CT Abdomen Pelvis W Contrast (09/09/2023 12:58 PM STILL CLEANER) Anatomical Region Laterality Modality Body N/A Computed Tomogra phy 09/09/2023 1:09 PM STILL CLEANER Impressions 09/09/2023 1:09 PM STILL CLEANER 1. Large left rectus abdominis hematoma measuring [...] Brown II, D.O. Narrative 09/09/2023 1:09 PM STILL CLEANER EXAMINATION: CT ABDOMEN PELVIS W CONTRAST DATE: [...] FOR LIFE MEDICARE FOR LIFE MEDICARE [facility] FOR LIFE MEDICARE Advance Directives For more information, please contact: [phone] Documents on File Type Date Recorded Patient Colorist Dyer Expl anation ADVANCE DIRECTIVE 03/16/2023 3:19 PM POWER OF COOKING TEACHER-MEDICAL ADVANCE DIRECTIVE 03/08/2023 5:06 PM POWER OF COOKING TEACHER-MEDICAL Power of Miner Helper 03/04/2023 11:54 AM * Full Code (Latest Code Status on File) Date Activated Date Inactivated Comments 12/19/2023 10:02 AM 12/19/2023 3:43 PM * Full Code Date Activated Date Inactivated Comments 03/15/2023 9:01 AM 03/24/2023 2:30 PM * Full Code Date Activated Date Inactivated Comments 03/03/2023 11:01 AM 03/15/2023 8:57 AM Care Teams Nailer Operator Relationship Specialty Start Date End Date Octavio Downey MD [address] [place] [address] PCP - General Internal Medicine 03/03/23 Octavio Downey MD [address] [facility] [address] [place] [address] Referring Physician Internal Medicine 03/14/23 [place] [address] [address] [facility] [address] [place] [address] Consulting Physician Pulmonary Disease 03/14/23 Fred Hussein MD [address] [facility] [address] [place] [address] Consulting Physician Cardiology 03/14/23
--- OUTSIDE RECORDS SUMMARY | 2025-06-26 12:25 | XMS_ITS | Encounter Summary ---
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 Gender Identity Not on file Sexual Orientation [...] documented as of this encounter Care Teams Cylinder Inspector Relationship Specialty Start Date End Date John Lin MD [address] [place] [address] PCP - General 12/15/16 03/02/23 Octavio Downey MD [address] [facility] [place] [address] PCP - General Internal Medicine 03/03/23 Octavio Downey MD [address] [place] [address] [place] [address] Referring Physician Internal Medicine 03/14/23 [place] [address] [place] [address] Consulting Physician Pulmonary Disease 03/14/23 Fred Hussein MD [address] [place] [address] [place] [address] Consulting Physician Cardiology 03/14/23 documented as of this encounter
--- OUTSIDE RECORDS SUMMARY | 2025-06-26 12:25 | XMS_ITS | Clinical Summary ---
Author Organization [facility] Address [address] [facility] [place] [address] Care Team Providers Care Teacher Name Role Phone Albert Smith DO Primary Care Provider [phone] Source Comments [facility],non-owned Affiliates and Associated Physician Practices is amultiple site organization consisting of ambulatory clinics and hospital sitesin [place], [place], [place] and [place]. This disclosure is being madepursuant to the Care Everywhere program and may not contain all information available regarding this patient. 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 Machine Operator als (MULTIVITAMIN ADULT PO) Take by mouth [...] V ICD 02/26/2020 Overview (02/26/2020): [facility] 3369-40Q [id number] Implanted 02/26/20 Dr Childs RV: [facility] 7122Q SN:[id number] 02/26/20 LV: [facility] 1458Q SN:[id number] 02/26/20 Nonrheumatic tricuspid valve regurgitation 01/29 Coronary artery disease involving [place] coronar y artery 11/01/2019 Overview (11/22/2019): 06/14 [...] new focal RWMAs, severe LAE, mild BRIANDA, [id number] MR, mild AI/TR/PI, RVSP 38, no pericardial [...] Description 04/02/2025 2:10 PM CDT Ancillary Procedure [facility] - Radiology [address] [place] [id number] John Hammonds MD Primary osteoarthritis of both knees 04/02/2025 2:00 PM CDT Office Visit [facility] [address] 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 Not on file Not on angela e Last Filed Vital Signs Vital Sign Reading Time Taken Comments Blood Pressure 120/70 06/27/2020 2:49 PM CDT Pulse 62 06/27/2020 2:49 PM CDT Temperature 37.1 C (98.7 F) 11/01/2019 8:34 AM TEST AUTOMATION ARCHITECT Respiratory Rate 10 05/09/2020 3:19 PM CDT Oxygen Saturation 98% 06/27/2020 2:49 PM CDT Inhaled Oxygen Concentration - - Weight 77.1 kg (170 lb) 04/02/2024 2:31 PM CDT Height 177.8 cm (5' 10) 04/02/2024 2:31 PM CDT Body Mass Index 24.39 04/02/2024 2:31 PM CDT Plan of Treatment Upcoming Encounters Date Type Department Care Team (Late st Contact Info) Description 07/02/2025 2:00 PM TEST AUTOMATION ARCHITECT Office Visit [facility] [address] [address] [place] [address] [address] Health Maintenance Due Date Last [...] Bilat 3Vw (04/02/2025 2:22 PM CDT) Narrative [facility] [address] - 04/02/2025 2:22 PM CDT Please see progress note in Epic for results. us John Hammonds MD DIAGNOSTIC IMAGING ORDERABLES Final Result [facility] [address] from Last 3 Months Insurance [facility] MEDICARE MEDICARE MEDICARE [facility] Advance Directives * Full Code (Latest Code Status on File) Date Activated Date Inactivated Comments 05/19/2019 4:57 PM 05/23/2019 2:03 PM Care Teams Teacher Relationship Specialty Start Date End Date Albert Smith DO [address] [place], [place] [id number] PCP - General Internal Medicine 04/02/24
--- OUTSIDE RECORDS SUMMARY | 2025-06-26 12:25 | XMS_ITS | Encounter Summary ---
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 Office Visit [facility] [address] [address] [place] [address] [address] documented as of this encounter Procedures Procedure Name Priority Date/Time Associated Diagnosis Comments SARS-COV-2 (COVID-19) IN HOUSE Routine 02/22/2020 10:40 AM CDT documented in this encounter Results * SARS-COV-2 (COVID-19) IN HOUSE (02/22/2020 10:40 AM CDT) COVID-19 PCR Not detected Not detected, Invalid 02/22/2020 11:54 PM CDT [facility] MICROBIOLOGY Microbiology SPECIMEN FROM NASOPHARYNGEAL STRUCTURE / Unknown Collection / Unknown 02/22/2020 10:40 AM CDT 02/22/2020 4:21 PM CDT Narrative [facility] MICROBIOLOGY - 02/22/2020 11:54 PM CDT This Real Time RT-PCR assay was developed and its performance characteristics determined by [facility]. This test has been [...] LAB - MICROBIOLOGY ORDERABLES Fi nal Result [facility] MICRO[facility]OLOGY [address] [place] [address], [facility] [phone] documented in this encounter Visit Diagnoses Not on filedocumented in this encounter Additional Health Concerns Infection Onset Date Last Indicated Resolved Time COVID-19 Under Investigation 02/22/2020 02/22/2020 02/22/2020 11:54 PM CDT documented as of this encounter Care Teams Consulting Services Associate Relationship Specialty Start Date End Date Albert Smith DO [address] [place] [phone] PCP - General Internal Medicine 04/02/24 documented as of this encounter
--- OUTSIDE RECORDS SUMMARY | 2025-06-26 12:25 | XMS_ITS | Clinical Summary ---
Author Organization [facility] Address [address] [place] [address] Care Team Providers Care Long Term Name Role Phone Unavailable Primary Care Provider [...]
--- OUTSIDE RECORDS SUMMARY | 2025-06-26 12:25 | XMS_ITS | Encounter Summary ---
Author Organization [facility] Address [address] [place] [address] Phone Care Team Providers Care Hood Maker Name Role Phone John Lin MD Primary Care Provider [phone] Octavio Downey MD Primary Care Provider + Octavio Downey MD Unavailable [phone] Cookie Voss MD Unavailable [phone] Fred Hussein MD Unavailable [phone] Encounter Details Date Type Department Care Team (Late st Contact Info) Description 09/18/2019 Orders Only [facility] Medicine Neurology Outreach [address] [place] [address] Scanning, Provider Social History Tobacco Use Types Packs/Day Years Used Date Smoking Tobacco: Former Smokeless Tobacco: Never Alcohol Use Standard Drinks/Week Comments No 0 (1 standard drink = 0.6 oz pur e alcohol) Sex and Gender Information Value Date Recorded Sex Assigned at Not on file 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 Gender Identity Not on file Sexual Orientation [...] documented as of this encounter Care Teams Hood Maker Relationship Specialty Start Date End Date John Lin MD [address] [place] [address] PCP - General 12/15/16 03/02/23 Octavio Downey MD [address] [facility] [address] PCP - General Internal Medicine 03/03/23 Octavio Downey MD [address] [facility] [address] [place] [address] Referring Physician Internal Medicine 03/14/23 [place] [address] [facility] [address] [place] [address] Consulting Physician Pulmonary Disease 03/14/23 Fred Hussein MD [address] [facility] [address] [place] [address] Consulting Physician Cardiology 03/14/23 documented as of this encounter
--- OUTSIDE RECORDS SUMMARY | 2025-06-26 12:25 | XMS_ITS | Clinical Summary ---
Author Organization [facility] Address [address] [place] [address] Care Team Providers Care Interactive Multimedia Designer Name Role Phone John Lin MD Primary Care Provider [phone] Medications No known medications Active Problems No [...] 2018 INFLUENZA VACCINE (#1) 2025 Insurance MEDICARE [employer] Care Teams Interactive Multimedia Designer Relationship Specialty Start Date End Date John Lin MD [address] [place] [phone] PCP - General Internal Medicine 06/01/21
--- NOTE | 2025-06-26 12:50 | ED.GENADULT ---
HPI - General Adult General Chief complaint: Weakness Stated complaint: weakness, bloated with weight gain Time Seen by Provider: 06/26/25 11:58 History of Present Illness HPI narrative: 79-year-old male with prior history of stage 3 chronic kidney disease, coronary artery disease, COPD, transient AFib, cardiomyopathy, depression present to the emergency department for evaluation for worsening exertional shortness breath and 10 lb of weight gain over the last 3 days. Patient states he is unable to walk across the room without having worsening shortness of breath. Patient states he has also had worsening depression due to the worsening exertional fatigue. Patient states he has set up an appointment with psychiatry for this. Patient did not express any suicidal or homicidal ideation. Related Data Home Medications ?Medication ?Instructions ?Recorded ?Confirmed ?Last Taken ?Type pravastatin 40 mg tablet 40 mg PO DAILY 01/28/20 06/26/25 Unknown History aspirin 81 mg tablet 81 mg PO DAILY 12/07/22 06/26/25 Unknown History ferrous sulfate 325 mg (65 mg 325 mg PO DAILY 12/07/22 06/26/25 Unknown History iron) tablet bumetanide 2 mg tablet 2 mg PO DAILY 02/02/24 06/26/25 Unknown History cholecalciferol (vitamin D3) 25 25 mcg PO DAILY 02/02/24 06/26/25 Unknown History mcg (1,000 unit) capsule dutasteride 0.5 mg capsule 0.5 mg PO QHS 02/02/24 06/26/25 Unknown History flaxseed oil 1,000 mg capsule 1,400 mg PO DAILY 02/02/24 06/26/25 Unknown History midodrine 5 mg tablet 10 mg PO DAILY 02/02/24 06/26/25 Unknown History multivitamin with minerals-folic 1 tablet PO BID 03/29/24 06/26/25 Unknown History acid 0.4 mg tablet empagliflozin 10 mg tablet 10 mg PO DAILY 07/04/24 06/26/25 Unknown History (Jardiance) budesonide 160 mcg-glycopyr 9 2 inh inhalation BID 03/18/25 06/26/25 Unknown History mcg-formot 4.8 mcg/actuation HFA inhaler (Breztri Aerosphere) melatonin 3 mg capsule 3 mg PO QHS 03/18/25 06/26/25 Unknown History midodrine 5 mg tablet 5 mg PO HS 06/26/25 06/26/25 Unknown History vibegron 75 mg tablet (Gemtesa) 75 mg PO 199906/26/25 06/26/25 Unknown History Allergies Allergy/AdvReac Type Severity Reaction Status Date / Time No Known Allergies Allergy Verified 06/26/25 15:14 Review of Systems Review of Systems: All systems reviewed & are unremarkable except as noted in HPI and below PMFSH Past Medical History Medical History (Updated 06/26/25 @ 18:23 by Leandra Mcdaniel, ELY) Long-term current use of testosterone cypionate Bilateral knee pain Hypogonadism in male Colon cancer screening COVID Knee effusion, right Arthritis Depression Urinary hesitancy Wheezing SOB (shortness of breath) on exertion Hearing loss Memory loss Weight gain JESSICA (obstructive sleep apnea) Cardiac defibrillator in place Pacemaker Right knee DJD Stage 3a chronic kidney disease Right knee pain BPH loc w urin obs/LUTS Carpal tunnel syndrome of right wrist Urinary frequency Bruising Myofascial muscle pain Right shoulder pain Left flank pain COPD (chronic obstructive pulmonary disease) Weakness of distal arms and legs Adverse effect of lovastatin Atrial fibrillation, transient Benign essential hypertension Benign non-nodular prostatic hyperplasia with lower urinary tract symptoms Cardiomyopathy, unspecified Closed fracture of multiple ribs of left side with routine healing Closed fracture of transverse process of axis Depression with anxiety Dysthymic Enlarged prostate without lower urinary tract symptoms (luts) Gait disturbance 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 Non-sustained ventricular tachycardia Other and unspecified hyperlipidemia Short-term memory loss Sleep disorder breathing Status post pneumothorax Syncope Surgical History Surgical History History of quadruple bypass October of 2019 History of open heart surgery Family History Family History Mother Depression Cancer Sibling Family history of gastrointestinal disorder Depression Acute myocardial infarction Cancer Father Cerebrovascular accident Heart disease Other Arthritis Hypertension Social History Social History Social History: Caffeine-coffee Smoking packs per day: 1 Smoking cigarettes per day: 20.0 Years smoked: 20 Smoking pack-years: 20.00 Smoking status: Former smoker Tobacco type: cigarettes Second hand tobacco smoke exposure: No Smoking end date: 08/29/79 Alcohol intake: never Alcohol use details: rarely Substance use: never Substance use type: does not use Do You Feel Safe in your Home?: Yes Lack of Transportation: No Lack of Food: Never True Current Housing: I Have Housing Concerned About Future Housing: No Difficulty Paying Gas/Electric Bills: No Difficulty Paying for Meds: No Currently Unemployed: No Education: Decline to Answer Difficulty w/ Childcare or Family Care: No Living arrangements: with family Occupation/Education: retired Gender identity (if verbalized by the patient): Male Sexual Orientation (if Verbalized by the Patient): Straight or Heterosexual Spiritual care concerns: No Agree to blood products: Yes Exam Narrative: APPEARANCE: Fatigued-appearing. HEAD: normocephalic, atraumatic. EYES: PERRLA/EOMI, conjunctivae clear. NOSE: Normal no drainage EARS:TMS clear with good light reflex. THROAT: Pharynx clear, no exudate. NECK: Supple. No adenopathy, no masses. RESPIRATORY: Airway patent, respirations nonlabored. Clear to auscultation bilaterally, no rales, rhonchi, wheezing. CARDIOVASCULAR: Regular rate and rhythm without murmurs rubs or gallops. ABDOMINAL: Soft, nontender, nondistended, normal bowel sounds MUSCULOSKELETAL: No significant lower extremity edema NEURO: Alert. Cranial nerves II through XII intact. Good gait. Good coordination SKIN: Warm, dry. Normal Color Course Vital Signs Vital signs: Vital Signs Temperature 98 F 06/26/25 11:16 Pulse Rate 85 06/26/25 11:16 Respiratory Rate 20 06/26/25 11:16 Blood Pressure 107/71 06/26/25 11:16 Pulse Oximetry 97 06/26/25 11:16 Oxygen Delivery Room Air 06/26/25 11:16 Temperature 98 F 06/26/25 11:16 Pulse Rate 85 06/26/25 13:26 Respiratory Rate 20 06/26/25 13:26 Blood Pressure 106/73 06/26/25 13:26 Pulse Oximetry 96 06/26/25 13:26 Oxygen Delivery Room Air 06/26/25 11:16 Medical Decision Making MDM Narrative Medical decision making narrative: 79-year-old male presents to the emergency department for evaluation for worsening exertional fatigue. Patient is currently afebrile with no leukocytosis hemoglobin of 13.8. Patient does have history of chronic kidney disease and patient's creatinine is 1.55. Patient does have a significant elevated proBNP of 8820 which is higher than his previous baseline. Patient's troponin is high normal at 0.019. Chest x-ray was concerning for CHF with underlying pneumonia. Patient does feel excessively fatigued and short of breath. I discussed admission and the patient does prefer to be admitted. Patient will be started on IV antibiotics for pneumonia along with diuretics. I did discussed case with the hospitalist. If the patient does have improving imaging then perhaps the antibiotics can be held. Patient will be admitted to telemetry due to the underlying pulmonary edema. Differential Diagnosis Differential Diagnosis: COVID, RSV, influenza, pneumonia, CHF, ACS Vital Signs Vital Signs: Vital Signs Temperature 98 F 06/26/25 11:16 Pulse Rate 85 06/26/25 11:16 Respiratory Rate 20 06/26/25 11:16 Blood Pressure 107/71 06/26/25 11:16 Pulse Oximetry 97 06/26/25 11:16 Oxygen Delivery Room Air 06/26/25 11:16 Temperature 98 F 06/26/25 11:16 Pulse Rate 85 06/26/25 13:26 Respiratory Rate 20 06/26/25 13:26 Blood Pressure 106/73 06/26/25 13:26 Pulse Oximetry 96 06/26/25 13:26 Oxygen Delivery Room Air 06/26/25 11:16 Lab Data Lab results reviewed: Yes I reviewed the patient's lab results. 06/26/25 11:22 06/26/25 11:22 Labs: Lab Results 06/26/25 Range/Units 11:22 WBC 7.1 (4.5-10.0) K/mm3 RBC 4.64 (4.6-6.20) M/mm3 Hgb 13.8 L (14.0-18.0) g/dL Hct 43.6 (42.0-52.0) % MCV 94.0 (80-100) fl MCH 29.7 (26-34) pg MCHC 31.7 L (32-36) g/dl RDW 15.3 H (11.5-14.5) % Plt Count 116 L (150-375) k/mm3 MPV 11.1 H (7.4-10.4) fl Immature Gran % (Auto) 0.3 (0-0.5) % Neut % (Auto) 86.1 H (45.5-73.1) % Lymph % (Auto) 7.4 L (18.3-44.2) % Kinney % (Auto) 5.8 (2.6-8.5) % Eos % (Auto) 0.3 (0-4.4) % Baso % (Auto) 0.1 L (0.2-1.2) % Lymph # (Auto) 0.52 L (0.9-3.2) K/mm3 Kinney # (Auto) 0.4 (0.1-0.6) K/mm3 Eos # (Auto) 0.0 (0-0.3) K/mm3 Baso # (Auto) 0.0 (0.0-0.1) K/mm3 Abs Immat Gran (auto) 0.02 (0.00-0.031) K/mm3 Absolute Neuts (auto) 6.1 (1.3-6.7) K/mm3 Absolute Nucleated RBC 0.000 (0.0-0.012) K/mm3 Nucleated RBC % 0.0 (0.0-0.2) % % Immature Plt Fraction 5.3 (0.9-11.2) % PT 15.1 H (11.1-14.7) Seconds INR 1.2 APTT 29.8 (22.3-36.8) Seconds Sodium 137 (137-145) mmol/L Potassium 3.9 (3.4-5.0) mmol/L Chloride 99 (98-107) mmol/L Carbon Dioxide 29 (22-30) mmol/L Anion Gap 9 (4-12) mmol/L BUN 31 H (9-20) mg/dL Creatinine 1.55 H (0.7-1.3) mg/dL Estim Creat Clear Calc 35 ml/min Estimated GFR 43 L (59 - ) Glucose 129 H (65-110) mg/dL Calcium 8.5 (8.4-10.2) mg/dL Total Bilirubin 1.4 H (0.2-1.3) mg/dL AST 33 (17-59) U/L ALT 24 (6-50) U/L Alkaline Phosphatase 57 (38-126) U/L Troponin I 0.019 (0.000-0.034) ng/mL NT-Pro-B Natriuret Pep 8820 H (19.9-100) pg/mL Total Protein 6.3 (6.3-8.2) g/dL Albumin 3.8 (3.5-5.1) g/dL Imaging Data Radiologist's impression: Impressions Chest X-Ray 06/26/25 11:50 Impression: CHF. Superimposed probable pneumonia. Discharge Plan Discharge Clinical Impression: Acute dyspnea CHF (congestive heart failure) Qualifiers: Heart failure type: combined systolic and diastolic Heart failure chronicity: acute on chronic Qualified Code(s): I50.43 - Acute on chronic combined systolic (congestive) and diastolic (congestive) heart failure Pneumonia Qualifiers: Pneumonia type: due to unspecified organism Patient Disposition: Still a Patient Condition: Serious
--- NOTE | 2025-06-26 13:04 | PM.IMHP ---
H&P: HPI History of Present Illness Date/Time: 06/26/25 13:04 Chief Complaint: Dyspnea on exertion, weight gain Narrative: 79-year-old male who past medical history of depression, JESSICA, COPD, AFib, BPH, CKD stage III, CAD s/p CABG x4 in October 2019, pacemaker, cardiomyopathy presents to the ED on 06/26/2025 with complaints of dyspnea on exertion and weight gain. Patient states he gained over 10 lb over the last 3 days. He is unable to walk across a room without having worsening shortness of breath. He further states that his abdomen feels bloated. Patient states he is just overall fatigued and has been for the past couple of months. Denies cough, fever, recent sick contacts, nausea, vomiting, diarrhea. The patient does endorse diarrhea and states he last went yesterday and it was only a ?little bit.? Patient states his depression has recently gotten worse due to his constant health issues. He has a psychiatrist appointment in 10 days. Denies SI and HI. Initial vital signs 107/71, HR 85, respirations 20, afebrile and 97% on room air EKG with ventricular pacer and PVCs Labs with no leukocytosis, hemoglobin of 13.8. Creatinine is 1.55, BNP 8820 (previously 4610). Troponin 0.019 Chest x-ray shows CHF with superimposed probable pneumonia Review of Systems Review of Systems: All systems reviewed & are unremarkable except as noted in HPI and below [facility] Past Medical History Medical History (Updated 06/26/25 @ 20:56 by Leandra Mcdaniel, ELY) Long-term current use of testosterone cypionate Bilateral knee pain Hypogonadism in male Colon cancer screening COVID Knee effusion, right Arthritis Depression Urinary hesitancy Wheezing SOB (shortness of breath) on exertion Hearing loss Memory loss Weight gain JESSICA (obstructive sleep apnea) Cardiac defibrillator in place Pacemaker Right knee DJD Stage 3a chronic kidney disease Right knee pain BPH loc w urin obs/LUTS Carpal tunnel syndrome of right wrist Urinary frequency Bruising Myofascial muscle pain Right shoulder pain Left flank pain COPD (chronic obstructive pulmonary disease) Weakness of distal arms and legs Adverse effect of lovastatin Atrial fibrillation, transient Benign essential hypertension Benign non-nodular prostatic hyperplasia with lower urinary tract symptoms Cardiomyopathy, unspecified Closed fracture of multiple ribs of left side with routine healing Closed fracture of transverse process of axis Depression with anxiety Dysthymic Enlarged prostate without lower urinary tract symptoms (luts) Gait disturbance retirement current use of anticoagulant Non-sustained ventricular tachycardia Other and unspecified hyperlipidemia Short-term memory loss Sleep disorder breathing Status post pneumothorax Syncope Surgical History Surgical History History of quadruple bypass October of 2019 History of open heart surgery Family History Family History Mother Depression Cancer Sibling Family history of gastrointestinal disorder Depression Acute myocardial infarction Cancer Father Cerebrovascular accident Heart disease Other Arthritis Hypertension Social History Social History Social History: Caffeine-coffee Smoking packs per day: 1 Smoking cigarettes per day: 20.0 Years smoked: 20 Smoking pack-years: 20.00 Smoking status: Former smoker Tobacco type: cigarettes Second hand tobacco smoke exposure: No Smoking end date: 08/29/79 Alcohol intake: never Alcohol use details: rarely Substance use: never Substance use type: does not use Do You Feel Safe in your Home?: Yes Lack of Transportation: No Lack of Food: Never True Current Housing: I Have Housing Concerned About Future Housing: No Difficulty Paying Gas/Electric Bills: No Difficulty Paying for Meds: No Currently Unemployed: No Education: Decline to Answer Difficulty w/ Childcare or Family Care: No Living arrangements: with family Occupation/Education: retired Gender identity (if verbalized by the patient): Male Sexual Orientation (if Verbalized by the Patient): Straight or Heterosexual Spiritual care concerns: No Agree to blood products: Yes Meds Home Medications and Allergies Home Medications ?Medication ?Instructions ?Recorded ?Confirmed ?Type pravastatin 40 mg tablet 40 mg PO DAILY 01/28/20 06/26/25 History aspirin 81 mg tablet 81 mg PO DAILY 12/07/22 06/26/25 History ferrous sulfate 325 mg (65 mg 325 mg PO DAILY 12/07/22 06/26/25 History iron) tablet bumetanide 2 mg tablet 2 mg PO DAILY 02/02/24 06/26/25 History cholecalciferol (vitamin D3) 25 25 mcg PO DAILY 02/02/24 06/26/25 History mcg (1,000 unit) capsule dutasteride 0.5 mg capsule 0.5 mg PO QHS 02/02/24 06/26/25 History flaxseed oil 1,000 mg capsule 1,400 mg PO DAILY 02/02/24 06/26/25 History midodrine 5 mg tablet 10 mg PO DAILY 02/02/24 06/26/25 History multivitamin with minerals-folic 1 tablet PO BID 03/29/24 06/26/25 History acid 0.4 mg tablet empagliflozin 10 mg tablet 10 mg PO DAILY 07/04/24 06/26/25 History (Jardiance) budesonide 160 mcg-glycopyr 9 2 inh inhalation BID 03/18/25 06/26/25 History mcg-formot 4.8 mcg/actuation HFA inhaler (Breztri Aerosphere) melatonin 3 mg capsule 3 mg PO QHS 03/18/25 06/26/25 History calcitriol 0.25 mcg capsule 0.25 mcg PO 3XW #30 caps 04/30/25 06/26/25 Rx testosterone cypionate 200 mg/mL 120 mg (0.6 mL) IM WEEKLY #10 mL 04/30/25 06/26/25 Rx intramuscular oil (Depo-Testosterone) citalopram 20 mg tablet 30 mg (1.5 x 20 mg) PO DAILY #135 05/13/25 06/26/25 Rx tabs midodrine 5 mg tablet 5 mg PO HS 06/26/25 06/26/25 History vibegron 75 mg tablet (Gemtesa) 75 mg PO 199906/26/25 06/26/25 History Allergies Allergy/AdvReac Type Severity Reaction Status Date / Time No Known Allergies Allergy Verified 06/26/25 15:14 Vital Signs Vital Signs - 24 hr 06/26/25 11:16 Temperature 98 F Pulse Rate 85 Respiratory Rate 20 Blood Pressure 107/71 Pulse Oximetry 97 Oxygen Delivery Room Air Exam Narrative: GENERAL: non-toxic appearing. HEAD: Normocephalic, atraumatic. EYES: PERRLA. Conjunctivae clear. NOSE: Normal no drainage. THROAT: Pharynx clear, no exudate. NECK: Trachea midline. No adenopathy, no masses. RESPIRATORY: Airway patent, respirations nonlabored. CTA. CARDIOVASCULAR: Regular rate and rhythm GASTROINTESTINAL: Abdomen is soft and rounded. No organomegaly. Bowel sounds normal in all quadrants. GENITOURINARY: Defer MUSCULOSKELETAL: Moves all extremities. No gross deformities. No calf tenderness. SKIN: Warm, dry, normal color. Trace edema to lower extremities NEURO: A&O X4. Speech clear PSYCHIATRIC: Normal interaction H&P: Results Labs Labs: Short CBC 06/26/25 Range/Units 11:22 WBC 7.1 (4.5-10.0) K/mm3 Hgb 13.8 L (14.0-18.0) g/dL Hct 43.6 (42.0-52.0) % Plt Count 116 L (150-375) k/mm3 BMP 06/26/25 11:22 Sodium 137 Potassium 3.9 Chloride 99 Carbon Dioxide 29 BUN 31 H Creatinine 1.55 H Glucose 129 H Calcium 8.5 Cardiac Enzymes 06/26/25 Range/Units 11:22 Troponin I 0.019 (0.000-0.034) ng/mL Liver Function 06/26/25 Range/Units 11:22 Total Bilirubin 1.4 H (0.2-1.3) mg/dL AST 33 (17-59) U/L ALT 24 (6-50) U/L Alkaline Phosphatase 57 (38-126) U/L Albumin 3.8 (3.5-5.1) g/dL Assessment and Plan Assessment and plan (1) CHF (congestive heart failure): Qualifiers: Heart failure chronicity: acute on chronic Heart failure type: combined systolic and diastolic Qualified Code(s): I50.43 - Acute on chronic combined systolic (congestive) and diastolic (congestive) heart failure Code(s): I50.9 - Heart failure, unspecified Status: Acute Assessment and Plan: Patient states he gained over 10 lb over the last 3 days. He is unable to walk across a room without having worsening shortness of breath. He further states that his abdomen feels bloated. BNP 8820 (previously 4610). Chest x-ray shows CHF with superimposed probable pneumonia -echo performed on 06/26 shows EF 45-50%, left ventricle moderately enlarged, right ventricle mildly enlarged, left atrium severely enlarged, right atrium severely enlarged, moderate pulmonary hypertension - currently on: Jardiance, Bumex - monitor I&Os and daily weights - trend renal function - trend BNP -furosemide 40 mg q.12 (2) Pneumonia: Qualifiers: Pneumonia type: due to unspecified organism Laterality: unspecified laterality Lung location: unspecified part of lung Qualified Code(s): J18.9 - Pneumonia, unspecified organism Code(s): J18.9 - Pneumonia, unspecified organism Status: Acute Assessment and Plan: Dyspnea on exertion with decreased activity tolerance. Chest x-ray with probable pneumonia. No leukocytosis. No cough. -started azithromycin and ceftriaxone on 06/26 -follow-up chest x-ray ordered for 06/27 to re-evaluate probable pneumonia after patient has been diuresed -not requiring supplemental oxygen -blood cultures pending (3) Depression with anxiety: Code(s): F41.8 - Other specified anxiety disorders Status: Acute Assessment and Plan: Patient states an increase in depression symptoms due to his current health status. Does have a psychiatrist appointment next week. No suicidal ideation or homicidal ideation. [place] score negative for intervention required. -crisis consulted and will see the patient on 06/27 -continue citalopram (4) Constipation: Qualifiers: Constipation type: unspecified constipation type Qualified Code(s): K59.00 - Constipation, unspecified Code(s): K59.00 - Constipation, unspecified Status: Acute Assessment and Plan: Patient states he has had recent issues with constipation. Had taken MiraLax in the past. -MiraLax daily -docusate senna 2 tab HS -magnesium citrate 1 time-patient refused (5) COPD (chronic obstructive pulmonary disease): Qualifiers: COPD type: unspecified COPD Qualified Code(s): J44.9 - Chronic obstructive pulmonary disease, unspecified Code(s): J44.9 - Chronic obstructive pulmonary disease, unspecified Status: Chronic Assessment and Plan: Dyspnea on exertion likely related to CHF exacerbation and fluid overload. -Continue Breztri -DuoNeb Q 6 p.r.n. (6) JESSICA (obstructive sleep apnea): Code(s): G47.33 - Obstructive sleep apnea (adult) (pediatric) Status: Acute Assessment and Plan: Uses BiPAP at night and knows his settings. -continue BiPAP use while inpatient (7) Stage 3b chronic kidney disease: Code(s): N18.32 - Chronic kidney disease, stage 3b Status: Acute Assessment and Plan: Creatinine 1.55, GFR 43, BUN 31. Baseline creatinine about 1.4 -trend renal function Plan Diet: Heart healthy GI prophylaxis: None DVT prophylaxis: SCDs lines/drains: PIV Fluids: Not indicated Code status: Full Quality VTE Prophylaxis VTE prophylaxis: mechanical ordered Hospitalist MIPS Advance Care Plan I have confirmed that the patient's Advanced Care Plan is present, code status is documented, or surrogate decision maker is listed in patient medical record.: Yes Medication Reconciliation I have utilized all available resources to obtain, update and review the patients current medications (includes all prescriptions, OTC, herbals, cannabis, and nutritional supplements).: Yes
[2025-06-26] MEDS: FUROSEMIDE INJ 40 MG/4 ML VIAL IV PUSH ×2 (13:23→20:26)
[2025-06-26] MEDS: cefTRIAXone 1 GM in SODIUM CHLORIDE 0.9% IV 50 ML 100 ML IVPB (13:23)
--- OUTSIDE RECORDS SUMMARY | 2025-06-26 13:33 | XMS_ITS | Encounter Summary ---
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 Not on file Not [...] st Contact Info) Description 07/02/2025 2:00 PM SKIN FITTER Office Visit [facility] [id number] [id number] [place] [address] [address] documented as of this encounter Procedures Procedure Name Priority Date/Time Associated Diagnosis Comments SARS-COV-2 (COVID-19) IN HOUSE Routine 02/22/2020 10:40 AM CDT documented in this encounter Results * SARS-COV-2 (COVID-19) IN HOUSE (02/22/2020 10:40 AM CDT) COVID-19 PCR Not detected Not detected, Invalid 02/22/2020 11:54 PM CDT [facility] Microbiology SPECIMEN FROM NASOPHARYNGEAL STRUCTURE / Unknown Collection / Unknown 02/22/2020 10:40 AM CDT 02/22/2020 4:21 PM CDT Narrative [facility] - 02/22/2020 11:54 PM CDT This Real Time RT-PCR assay was developed and its performance characteristics determined by [facility]. This test has been [...] LAB - MICROBIOLOGY ORDERABLES Fi nal Result [facility] [address] [place] [address], [facility] [phone] documented in this encounter Visit Diagnoses Not on filedocumented in this encounter Additional Health Concerns Infection Onset Date Last Indicated Resolved Time COVID-19 Under Investigation 02/22/2020 02/22/2020 02/22/2020 11:54 PM CDT documented as of this encounter Care Teams Breaker Off Relationship Specialty Start Date End Date Albert Smith DO [address] [place] [phone] PCP - General Internal Medicine 04/02/24 documented as of this encounter
--- OUTSIDE RECORDS SUMMARY | 2025-06-26 13:33 | XMS_ITS | Clinical Summary ---
Author Organization [facility] Address [address] [place] [address] Care Team Providers Care Electrician Yard Name Role Phone Octavio Downey MD Primary Care Provider + Octavio Downey MD Unavailable [phone] Cookie Voss MD Unavailable [phone] Fred Hussein MD Unavailable [phone] Allergies No known active allergies Medications furosemide [...] Cardiac defibrillator in place 02/26/2020 Overview (03/03/2023): [facility] 3369-40Q SN:[id number] Implanted 02/26/20 Dr Childs RV: [facility] 7122Q SN:[id number] 02/26/20 LV: [facility] 1458Q SN:[id number] 02/26/20 JESSICA (obstructive sleep apnea) 04/25/2019 Overview [...] - 06/06/2025 11:59 PM CDT Hospital Encounter [facility] [address] [place] [address] Other nonspecific abnormal finding of lung field Discharge Disposition: Discharge to home or self care 03/27/2025 11:30 AM CDT Office Visit [facility] at [address] [address] Mirta Stephen NP Acute cough (Primary Dx); Acute non-recurrent frontal sinusitis from Last 3 Months Surgical History Surgery Date Site/Laterality Comments [place] UNLISTED PROCEDURE ABDOME N PERITONEUM & OMENTUM [...] week 03/16/2023 How often do you attend [facility] Nu-Pulse or muslim services? Never 03/16/2023 Do you belong to any clubs o r organizations such as sikh groups, unions, fraternal or athletic groups, or [...] place to sleep or slept in a intermediate (including now)? No 03/16/2023 Personal Safety Answer Date Recorded Have you ever been in or are you currently in a harmful physical or emotional relationship or is someone making you feel afraid or unsafe? 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 PREVENTION SUPERVISOR Gender Identity Not on file Sexual Orientation [...] 09/09/2023, 05/19/2019 Medical Devices Implanted Type Area Wool Buyer Device Identifier Shelf Expiration Date Model / [...] PELVIS W CONTRAST ED 09/09/2023 12:58 PM LOSS PREVENTION SUPERVISOR from Last 3 Months or Most Recently [...] CDT) Influenza A Ag, POC Negative Negative [facility] Influenza B Ag, POC Negative Negative [facility] COVID-19 Ag POC Presumptive Negative Presumptive Negative, Invalid [facility] Nasal 03/27/2025 11:3 8 AM CDT Mirta Stephen NP POINT OF CARE TEST ORDERAB LES Final Result [facility] [address] [place] [address] * CT Abdomen Pelvis W Contrast (09/09/2023 12:58 PM LOSS PREVENTION SUPERVISOR) Anatomical Region Laterality Modality Body N/A Computed Tomogra phy 09/09/2023 1:09 PM LOSS PREVENTION SUPERVISOR Impressions 09/09/2023 1:09 PM LOSS PREVENTION SUPERVISOR 1. Large left rectus abdominis hematoma measuring [...] Brown II, D.O. Narrative 09/09/2023 1:09 PM LOSS PREVENTION SUPERVISOR EXAMINATION: CT ABDOMEN PELVIS W CONTRAST DATE: [...] MEDICARE FOR LIFE MEDICARE FOR LIFE MEDICARE [facility] Address: [address] [address] [place] [address] [facility] MEDICARE Advance Directives For more information, please contact: [phone] Documents on File Type Date Recorded Patient House Steward/Stewardess Expl anation ADVANCE DIRECTIVE 03/16/2023 3:19 PM POWER OF MELTER HELPER-MEDICAL ADVANCE DIRECTIVE 03/08/2023 5:06 PM POWER OF MELTER HELPER-MEDICAL Power of Assistant Professor Of Biochemistry 03/04/2023 11:54 AM * Full Code (Latest Code Status on File) Date Activated Date Inactivated Comments 12/19/2023 10:02 AM 12/19/2023 3:43 PM * Full Code Date Activated Date Inactivated Comments 03/15/2023 9:01 AM 03/24/2023 2:30 PM * Full Code Date Activated Date Inactivated Comments 03/03/2023 11:01 AM 03/15/2023 8:57 AM Care Teams Electrician Yard Relationship Specialty Start Date End Date Octavio Downey MD [address] [facility] [place] [address] PCP - General Internal Medicine 03/03/23 Octavio Downey MD [address] [facility] [address] [place] [address] Referring Physician Internal Medicine 03/14/23 [place] [address] [address] [facility] [address] [place] [address] Consulting Physician Pulmonary Disease 03/14/23 Fred Hussein MD [address] [facility] [address] [place] [address] Consulting Physician Cardiology 03/14/23
--- OUTSIDE RECORDS SUMMARY | 2025-06-26 13:33 | XMS_ITS | Encounter Summary ---
Author Organization 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 Gender Identity Not on file Sexual Orientation [...] documented as of this encounter Care Teams College Dean Relationship Specialty Start Date End Date John Lin MD [address] [place] [address] PCP - General 12/15/16 03/02/23 Octavio Downey MD [address] [place] [address] PCP - General Internal Medicine 03/03/23 Octavio Downey MD [address] [place] [address] [place] [address] Referring Physician Internal Medicine 03/14/23 [place] [address] [address] [place] [address] [place] [address] Consulting Physician Pulmonary Disease 03/14/23 Fred Hussein MD [address] [place] [address] [place] [address] Consulting Physician Cardiology 03/14/23 documented as of this encounter
--- OUTSIDE RECORDS SUMMARY | 2025-06-26 13:33 | XMS_ITS | Clinical Summary ---
Author Organization [facility] [place] Address [address] [facility] [place] [address] Care Team Providers Care Site Physician Name Role Phone John Lin MD Primary Care Provider [phone] Medications No known medications Active Problems No [...] 2018 INFLUENZA VACCINE (#1) 2025 Insurance MEDICARE [employer] Care Teams Site Physician Relationship Specialty Start Date End Date John Lin MD [address] [place] [phone] PCP - General Internal Medicine 06/01/21
--- OUTSIDE RECORDS SUMMARY | 2025-06-26 13:33 | XMS_ITS | Encounter Summary ---
Author Organization [facility] Address [address] [place] [address] Phone Care Team Providers Care Automatic Pinsetter Mechanic Name Role Phone John Lin MD Primary Care Provider [phone] Octavio Downey MD Primary Care Provider + Octavio Downey MD Unavailable Cookie Voss MD Unavailable [phone] Fred Hussein MD Unavailable [phone] Encounter Details Date Type Department Care Team (Late st Contact Info) Description 09/18/2019 Orders Only [facility] Medicine Neurology Outreach [address] [place] [address] Scanning, Provider Social History Tobacco Use Types Packs/Day Years Used Date Smoking Tobacco: Former Smokeless Tobacco: Never Alcohol Use Standard Drinks/Week Comments No 0 (1 standard drink = 0.6 oz pur e alcohol) Sex and Gender Information Value Date Recorded Sex Assigned at Not on file Legal Sex Male 1:18 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 Gender Identity Not on file Sexual Orientation [...] documented as of this encounter Care Teams Automatic Pinsetter Mechanic Relationship Specialty Start Date End Date John Lin MD [address] [place] [address] PCP - General 12/15/16 03/02/23 Octavio Downey MD [address] [facility] [place] [address] PCP - General Internal Medicine 03/03/23 Octavio Downey MD [address] [facility] 1 [place] [address] Referring Physician Internal Medicine 03/14/23 [place] [address] [facility] [address] [place] [address] Consulting Physician Pulmonary Disease 03/14/23 Fred Hussein MD [address] [facility] [place] [place] [address] Consulting Physician Cardiology 03/14/23 documented as of this encounter
--- OUTSIDE RECORDS SUMMARY | 2025-06-26 13:33 | XMS_ITS | Clinical Summary ---
Author Organization [facility] Address [address] [place] [address] Care Team Providers Care Hardwood Floor Refinisher Name Role Phone Unavailable Primary Care Provider [...]
--- OUTSIDE RECORDS SUMMARY | 2025-06-26 13:33 | XMS_ITS | Clinical Summary ---
Author Organization [facility] [employer] Address [address] [facility] [place] [address] Care Team Providers Care Concrete Engineer Name Role Phone Albert Smith DO Primary Care Provider [phone] Source Comments [facility] [employer],non-owned Affiliates and Associated Physician Practices is amultiple site organization consisting of ambulatory clinics and hospital sitesin [place], [place], [place] and [place]. This disclosure is being madepursuant to the Care Everywhere program and may not contain all information available regarding this patient. Last updated 18.[facility] [employer] Allergies Active Allergy Reactions Criticality Noted Date [...] by mouth once daily Active Multiple Vitamins-Manager Analysis als (MULTIVITAMIN ADULT PO) Take by mouth [...] V ICD 02/26/2020 Overview (02/26/2020): [facility] 3369-40Q SN:[id number] Implanted 02/26/20 Dr Childs RV: [facility] 7122Q SN:[id number] 02/26/20 LV: [facility] 1458Q SN:[id number] 02/26/20 Nonrheumatic tricuspid valve regurgitation 01/29 Coronary artery disease involving chipewwa coronar y artery 11/01/2019 Overview (11/22/2019): 06/14 [...] 05/23/2019 Hiatal hernia 05/23/2019 Enlarged prostate 05/23/2019 JSESICA (obstructive sleep apnea) 04/25/2019 Overview (04/25/2019): 03/16 [...] new focal RWMAs, severe LAE, mild BRIANDA, [id number] MR, mild AI/TR/PI, RVSP 38, no pericardial [...] Description 04/02/2025 2:10 PM CDT Ancillary Procedure [facility] - Radiology [address] [place] [phone] John Hammonds MD Primary osteoarthritis of both knees 04/02/2025 2:00 PM CDT Office Visit [facility] [address] [facility] [place] [address] John Hammonds MD Primary osteoarthritis of both [...] 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 on file Not on angela e Last Filed Vital Signs Vital Sign Reading Time Taken Comments Blood Pressure 120/70 06/27/2020 2:49 PM CDT Pulse 62 06/27/2020 2:49 PM CDT Temperature 37.1 C (98.7 F) 11/01/2019 8:34 AM OPENER TENDER Respiratory Rate 10 05/09/2020 3:19 PM CDT Oxygen Saturation 98% 06/27/2020 2:49 PM CDT Inhaled Oxygen Concentration - - Weight 77.1 kg (170 lb) 04/02/2024 2:31 PM CDT Height 177.8 cm (5' 10) 04/02/2024 2:31 PM CDT Body Mass Index 24.39 04/02/2024 2:31 PM CDT Plan of Treatment Upcoming Encounters Date Type Department Care Team (Late st Contact Info) Description 07/02/2025 2:00 PM OPENER TENDER Office Visit [facility] [address] [address] [place] [address] [address] Health Maintenance Due Date Last [...] Bilat 3Vw (04/02/2025 2:22 PM CDT) Narrative [facility] [address] - 04/02/2025 2:22 PM CDT Please see progress note in Epic for results. us John Hammonds MD DIAGNOSTIC IMAGING ORDERABLES Final Result [facility] [address] from Last 3 Months Insurance [facility] MEDICARE MEDICARE MEDICARE [facility] Advance Directives * Full Code (Latest Code Status on File) Date Activated Date Inactivated Comments 05/19/2019 4:57 PM 05/23/2019 2:03 PM Care Teams Concrete Engineer Relationship Specialty Start Date End Date Albert Smith DO [address] [place], [place] [id number] PCP - General Internal Medicine 04/02/24
[2025-06-26] MEDS: PERFLUTREN LIPID MICROSPHERES 1.5 ML VIAL DILUTED TO 10 ML TOTAL VOLUME IV PUSH (15:26)
--- NOTE | 2025-06-26 15:26 | IVDEFINITY ---
Prior to administration of IV Definity the patient was educated on the risks and benefits of the imaging enhancing agent including potential adverse side effects. The patient verbalized understanding. Allergies were verified. No exclusion criteria were identified and at least one of the following inclusion criteria were met: 1) physician request, 2) patient technically difficult to image (per the [place] [employer] Echocardi[employer] guidelines of two or more segments not discernable within the apical view), or 3) questionable left ventricular function. ?
--- NOTE | 2025-06-26 15:47 | PC.NURSE ---
Upon asking admission questions, pt answered that he and his were very verbal with each other. Pt states that they always kiss and make up. He states they have been 52 years. He does endorse that he has thought of suicide, but that he would never do it because of his son and grandkids. He states that he is very depressed and has a psychiatrist appointment coming up in the next 10 days. He states he is very, very depressed. [place] score negative for intervention required, but provider made aware as well as hot metal charger and house sup.
[2025-06-26] MEDS: AZITHROMYCIN IV 500 MG in SODIUM CHLORIDE 0.9% IV 250 ML IVPB (16:41)
[2025-06-26] MEDS: WATER FOR IRRIGATION, STERILE 500 ML BOTTLE (16:42)
--- NOTE | 2025-06-26 16:48 | PCCCNOTE ---
Called from the floor to have CRISIS come to evaluate pt. Pt does not meet to call CRISIS at this time, he would need to be medically cleared and ready for discharged. laundry supervisor notified.
[2025-06-26] MEDS: SENNA/DOCUSATE SODIUM TABLET 2 TAB PO (20:25)
[2025-06-26] MEDS: DUTASTERIDE 0.5 MG CAPSULE PO (20:25)
[2025-06-26] MEDS: MELATONIN 3 MG TABLET PO (20:25)
[2025-06-26] MEDS: MIDODRINE HCL 2.5 MG TABLET 5 MG PO (20:26)
[2025-06-26] MEDS: [UNRECOGNIZED DRUG - REMARK] 1 EACH XX (23:04)
[2025-06-27] VITALS (12 sets, daily range): BP systolic 97–102; BP diastolic 65–75; PULSE 66–109; RESP 16–20; TEMP 36.3–36.4; O2SAT 92–97
--- NOTE | 2025-06-27 04:03 | ECG_ITS ---
Test Date: 2025-06-27 04:17:47 Measurements Intervals Manito Rate: 85 P: 0 AL: 0 QRS: 231 QRSD: 205 T: 67 QT: 464 QTc: 553 Interpretive Statements ELECTRONIC VENTRICULAR PACEMAKER NO FURTHER INTERPRETATION IS POSSIBLE ATYPICAL ECG Compared to ECG 06/26/2025 11:04:31 Ventricular premature complex(es) no longer present Electronically Signed On 06-27-2025 06:15:25 CDT by Aime Cross D.O.
[2025-06-27 05:40] LABS: Hematocrit 40.5 % (42.0-52.0); Hemoglobin 12.8 g/dL (14.0-18.0); Immature Granulocyte Percent A 0.3 % (0-0.5); Immature Platelet Fraction Pct 5.0 % (0.9-11.2); Lymphocytes Absolute Auto 0.84 K/mm3 (0.9-3.2); Mean Corpuscular HGB Conc 31.6 g/dl (32-36); Mean Corpuscular Hemoglobin 29.6 pg (26-34); Mean Corpuscular Volume 93.5 fl (80-100); Nucleated Red Blood Cells Absolute Auto 0.000 K/mm3 (0.0-0.012); Nucleated Red Blood Cells Perc 0.0 % (0.0-0.2); Platelet Count Result 118 k/mm3 (150-375); Red Blood Count 4.33 M/mm3 (4.6-6.20); White Blood Count 7.3 K/mm3 (4.5-10.0)
[2025-06-27 06:01] LABS: Magnesium 2.3 mg/dL (1.6-2.3)
[2025-06-27 06:03] LABS: Alanine Aminotransferase 18 U/L (6-50); Albumin Level 3.5 g/dL (3.5-5.1); Alkaline Phosphatase 51 U/L (38-126); Anion Gap 9 mmol/L (4-12); Aspartate Amino Transferase 29 U/L (17-59); Bilirubin,Total 1.3 mg/dL (0.2-1.3); Blood Urea Nitrogen 32 mg/dL (9-20); Calcium 8.0 mg/dL (8.4-10.2); Carbon Dioxide 29 mmol/L (22-30); Chloride 99 mmol/L (98-107); Estimated CRCL calculation 32 ml/min; Estimated Glomerular Filt Rate 38; Glucose 75 mg/dL (65-110); Potassium 3.6 mmol/L (3.4-5.0); Sodium 137 mmol/L (137-145); Total Protein 5.8 g/dL (6.3-8.2)
[2025-06-27 06:10] LABS: NT Pro B Type Natriuretic Pept 9000 pg/mL (19.9-100)
--- NOTE | 2025-06-27 07:27 | PM.IMPN ---
Progress Note: A&P Assessment and Plan (1) CHF (congestive heart failure): Qualifiers: Heart failure chronicity: acute on chronic Heart failure type: combined systolic and diastolic Qualified Code(s): I50.43 - Acute on chronic combined systolic (congestive) and diastolic (congestive) heart failure Code(s): I50.9 - Heart failure, unspecified Status: Acute Assessment and Plan: Patient states he gained over 10 lb over the last 3 days. He is unable to walk across a room without having worsening shortness of breath. He further states that his abdomen feels bloated. BNP 8820 (previously 4610). - Current medications: Jardiance 10 mg daily, bumex 2 mg po daily transitioned to 1 mg IV BID for current exacerbation - Chest x-ray shows CHF with superimposed probable pneumonia - Repeat CXR on 06/27 following diuresis showed CHF - Echo performed on 06/26 shows EF 45-50%, left ventricle moderately enlarged, right ventricle mildly enlarged, left atrium severely enlarged, right atrium severely enlarged, moderate pulmonary hypertension - Monitor vital signs, I&Os, BUN/creatinine, daily weights, neuro status and patient is a fall risk - Monitor serum electrolytes, Keep serum Potassium>4 and serum Magnesium>2 and CBC (2) Pneumonia: Qualifiers: Laterality: unspecified laterality Lung location: unspecified part of lung Pneumonia type: due to unspecified organism Qualified Code(s): J18.9 - Pneumonia, unspecified organism Code(s): J18.9 - Pneumonia, unspecified organism Status: Acute Assessment and Plan: Dyspnea on exertion with decreased activity tolerance. CXR: CHF superimposed probable pneumonia patient endorsing a cough that is intermittently productive - started on CAP tx: azithromycin ceftriaxone on 06/26, transitioned to oral antibiotics on 06/27 - Viral PCR: negative for Flu/COVID/RSV - no supplemental O2 requirement - Monitor vital signs, I&Os, neuro status and patient is a fall risk - Follow WBC, serum electrolytes, temperature curves and cultures (3) Stage 3b chronic kidney disease: Code(s): N18.32 - Chronic kidney disease, stage 3b Status: Acute Assessment and Plan: Chronic, baseline creatinine around 1.4 Creatinine uptrending likely related to diuresis, discontinued the IV lasix and transitioned the PO bumex to IV - UOP remains stable - trend renal function (4) COPD (chronic obstructive pulmonary disease): Qualifiers: COPD type: unspecified COPD Qualified Code(s): J44.9 - Chronic obstructive pulmonary disease, unspecified Code(s): J44.9 - Chronic obstructive pulmonary disease, unspecified Status: Chronic Assessment and Plan: Chronic, does not appear in acute exacerbation. No wheezing noted on exam. Dyspnea on exertion likely related to CHF exacerbation and fluid overload. -Continue Breztri -DuoNeb Q 6 p.r.n. (5) Constipation: Qualifiers: Constipation type: unspecified constipation type Qualified Code(s): K59.00 - Constipation, unspecified Code(s): K59.00 - Constipation, unspecified Status: Acute Assessment and Plan: Patient states he has had recent issues with constipation. Had taken MiraLax in the past. -MiraLax daily -docusate senna 2 tab HS -magnesium citrate 1 time-patient refused Resolved. (6) Depression with anxiety: Code(s): F41.8 - Other specified anxiety disorders Status: Acute Assessment and Plan: Patient states an increase in depression symptoms due to his current health status. Has a psychiatrist appointment next week. No current suicidal ideation or homicidal ideation. -continue citalopram (7) JESSICA (obstructive sleep apnea): Code(s): G47.33 - Obstructive sleep apnea (adult) (pediatric) Status: Acute Assessment and Plan: -continue BiPAP use while inpatient Time Spent With Patient Time with patient: 25 - 35 minutes Subjective Date/time seen: 06/27/25 07:27 Interval history: 79-year-old male who past medical history of depression, JESSICA, COPD, AFib, BPH, CKD stage III, CAD s/p CABG x4 in October 2019, pacemaker, cardiomyopathy presents to the hospital with complaints of dyspnea on exertion and weight gain of over 10 lb in the last 3 days. Patient is pleasant sitting comfortably on the side of the bed with at bedside. He states that he developed slight dizziness, nausea, and fogginess after being started on the IV antibiotics however this was resolving throughout my admission and had subsided before leaving patient's room. His vitals remained stable at this time. Patient states that his shortness of breath and swelling has continued to improve since admission. He has no other complaints denying chest pain, palpitations, and abdominal pain. Review of Systems Review of Systems: All systems reviewed & are unremarkable except as noted in HPI and below Exam Narrative: AF HR 87 RR 20 Spo2 97 BP 97/65 General: male in no acute respiratory distress who is nontoxic appearing, sitting up on side of the bed. HEENT: Normocephalic. Atraumatic. Extraocular movement intact. Sclera clear and anicteric. No facial asymmetry. Chest: Lungs are slight diminishment and coarseness to the bases bilaterally. No wheezes or crackles. Speaking full sentences. CV: Heart was regular rate and rhythm. S1/S2. No murmurs, gallops, or rubs. Abd: Abdomen was soft. Nontender. Nondistended. Positive bowel sounds. Ext: No clubbing, cyanosis, or edema. Dp pulses bilaterally. Neuro: Patient is alert. Speech is clear. Objective Data Vital Signs Vital Signs: Vital Signs - 24 hr 06/26/25 11:16 06/26/25 13:26 06/26/25 20:03 Temperature 98 F Pulse Rate 85 85 89 Respiratory Rate 20 20 Blood Pressure 107/71 106/73 Pulse Oximetry 97 96 96 Oxygen Delivery Room Air Room Air Fraction of Inspired Oxygen 21 06/26/25 20:04 06/26/25 20:04 06/26/25 21:00 Temperature Pulse Rate 87 89 Respiratory Rate Blood Pressure Pulse Oximetry 96 Oxygen Delivery Room Air CPAP Fraction of Inspired Oxygen 06/26/25 22:00 06/26/25 23:47 06/27/25 00:00 Temperature 98.5 F 98.0 F Pulse Rate 87 88 109 H Respiratory Rate 16 18 Blood Pressure 106/71 110/73 Pulse Oximetry 95 97 Oxygen Delivery Fraction of Inspired Oxygen 06/27/25 03:18 06/27/25 04:00 06/27/25 05:31 Temperature 97.6 F Pulse Rate 66 86 88 Respiratory Rate 20 Blood Pressure 101/74 Pulse Oximetry 92 97 Oxygen Delivery CPAP Fraction of Inspired Oxygen Intake/Output Intake/Output: Intake & Output 06/24/25 06/25/25 06/26/25 06/27/25 23:59 23:59 23:59 23:59 Intake Total 540 200 Output Total 400 1425 Balance 140 -1225 Meds/Results Medications: Active Medications Generic Name Dose Route Start Last Admin Trade Name Freq PRN Reason Stop Dose Admin Acetaminophen 650 mg 06/26/25 18:28 Acetaminophen 325 Mg Tablet PO Q4H PRN Mild Pain (1-3) or Fever Albuterol/Ipratropium 3 ml 06/26/25 18:25 Ipratropium 0.5 Mg/Albuterol Sulfate 2.5 Mg (Base) Ampul.Neb 3 Ml INHALATION Q6HRT PRN Shortness Of Breath Or Wheezing Aspirin 81 mg 06/27/25 09:00 Aspirin 81 Mg Chewable Tablet PO DAILY [facility] Bumetanide 2 mg 06/27/25 09:00 Bumetanide 1 Mg Tablet PO DAILY RALF Calcitriol 0.25 mcg 06/26/25 17:40 06/26/25 20:27 Calcitriol 0.25 Mcg Capsule PO Not Given [email or web address] [facility] Citalopram Hydrobromide 30 mg 06/27/25 09:00 Citalopram Hydrobromide 10 Mg Tablet PO DAILY [facility] Dutasteride 0.5 mg 06/26/25 21:00 06/26/25 20:25 Dutasteride 0.5 Mg Capsule PO 0.5 mg QHS RALF Administration Empagliflozin 10 mg 06/27/25 09:00 Empagliflozin 10 Mg Tablet PO DAILY [facility] Ferrous Sulfate 325 mg 06/27/25 09:00 Ferrous Sulfate 325 Mg Tablet PO DAILY [facility] Fluticasone/Umeclidinium/Vilanterol 1 puff 06/27/25 09:00 Fluticasone/Umeclidin/Vilanter 100-62.5-25 Mcg Ellipta INHALATION DAILY [facility] Furosemide 40 mg 06/26/25 21:00 06/26/25 20:26 Furosemide Inj 40 Mg/4 Ml Vial IV PUSH 40 mg Q12HR RALF Administration Ceftriaxone Sodium 1 gm/ 50 mls @ 100 mls/hr 06/27/25 09:00 Sodium Chloride IVPB QAM RALF Azithromycin 500 mg/ Sodium 250 mls @ 250 mls/hr 06/27/25 09:00 Chloride IVPB 06/30/25 09:59 QAM RALF Melatonin 3 mg 06/26/25 21:00 06/26/25 20:25 Melatonin 3 Mg Tablet PO 3 mg QHS RALF Administration Midodrine 10 mg 06/27/25 09:00 Midodrine Hcl 10 Mg Tablet PO DAILY [facility] Midodrine 5 mg 06/26/25 21:00 06/26/25 20:26 Midodrine Hcl 2.5 Mg Tablet PO 5 mg HS RALF Administration Miscellaneous Information 1 each 06/27/25 00:01 06/26/25 23:04 Gemtesa Is Nonform; Can Pt Use From Home? XX 07/27/25 00:00 1 each CLARIFY RALF Administration Non-Formulary Medication 75 mg 06/26/25 20:00 Vibegron [Gemtesa] PO 07/26/25 19:59 2000 RALF Polyethylene Glycol 17 gm 06/26/25 18:20 06/26/25 20:26 Polyethylene Glycol 3350 17 Gm Powd.Pack PO 17 gm QAM RALF Administration Pravastatin Sodium 40 mg 06/27/25 09:00 Pravastatin Sodium 20 Mg Tablet PO DAILY RALF Senna/Docusate Sodium 2 tab 06/26/25 21:00 06/26/25 20:25 Senna/Docusate Sodium Tablet PO 2 tab HS RALF Administration Vitamin D 25 mcg 06/27/25 09:00 Cholecalciferol (Vitamin D3) 25 Mcg (1,000 Units) Tablet PO DAILY [facility] Radiology Results: ITS Impressions Chest X-Ray 06/26/25 11:50 Impression: CHF. Superimposed probable pneumonia. Labs Labs: Laboratory Results - last 24 hr 06/26/25 06/27/25 11:22 05:08 WBC 7.1 7.3 RBC 4.64 4.33 L Hgb 13.8 L 12.8 L Hct 43.6 40.5 L MCV 94.0 93.5 MCH 29.7 29.6 MCHC 31.7 L 31.6 L RDW 15.3 H 15.1 H Plt Count 116 L 118 L MPV 11.1 H 11.1 H Immature Gran % (Auto) 0.3 0.3 Neut % (Auto) 86.1 H 76.2 H Lymph % (Auto) 7.4 L 11.6 L [place] % (Auto) 5.8 10.3 H Eos % (Auto) 0.3 1.0 Baso % (Auto) 0.1 L 0.6 Lymph # (Auto) 0.52 L 0.84 L [place] # (Auto) 0.4 0.8 H Eos # (Auto) 0.0 0.1 Baso # (Auto) 0.0 0.0 Abs Immat Gran (auto) 0.02 0.02 Absolute Neuts (auto) 6.1 5.5 Absolute Nucleated RBC 0.000 0.000 Nucleated RBC % 0.0 0.0 % Immature Plt Fraction 5.3 5.0 PT 15.1 H INR 1.2 APTT 29.8 Sodium 137 137 Potassium 3.9 3.6 Chloride 99 99 Carbon Dioxide 29 29 Anion Gap 9 9 BUN 31 H 32 H Creatinine 1.55 H 1.73 H Estim Creat Clear Calc 35 32 Estimated GFR 43 L 38 L Glucose 129 H 75 Calcium 8.5 8.0 L Magnesium 2.3 Total Bilirubin 1.4 H 1.3 AST 33 29 ALT 24 18 Alkaline Phosphatase 57 51 Troponin I 0.019 NT-Pro-B Natriuret Pep 8820 H 9000 H Total Protein 6.3 5.8 L Albumin 3.8 3.5 Quality VTE Prophylaxis VTE prophylaxis: mechanical ordered
[2025-06-27] MEDS: PRAVASTATIN SODIUM 20 MG TABLET 40 MG PO (08:58)
[2025-06-27] MEDS: ASPIRIN 81 MG CHEWABLE TABLET PO (08:58)
[2025-06-27] MEDS: CHOLECALCIFEROL (VITAMIN D3) 25 MCG (1,000 UNITS) TABLET PO (08:58)
[2025-06-27] MEDS: FERROUS SULFATE 325 MG TABLET PO (08:58)
[2025-06-27] MEDS: EMPAGLIFLOZIN 10 MG TABLET PO (08:58)
[2025-06-27] MEDS: CITALOPRAM HYDROBROMIDE 10 MG TABLET 30 MG PO (08:58)
[2025-06-27] MEDS: BUMETANIDE INJ 1 MG/4 ML VIAL IV PUSH ×2 (08:59→17:09)
[2025-06-27] MEDS: AZITHROMYCIN IV 500 MG in SODIUM CHLORIDE 0.9% IV 250 ML IVPB (08:59)
[2025-06-27] MEDS: MIDODRINE HCL 10 MG TABLET PO (09:19)
[2025-06-27] MEDS: cefTRIAXone 1 GM in SODIUM CHLORIDE 0.9% IV 50 ML 100 ML IVPB (09:20)
[2025-06-27] MEDS: FLUTICASONE/UMECLIDIN/VILANTER 100-62.5-25 MCG ELLIPTA 1 PUFF INHALATION (10:30)
[2025-06-27] MEDS: ONDANSETRON INJ 4 MG/2 ML VIAL IV PUSH (11:09)
--- NOTE | 2025-06-27 14:19 | PHAR ---
The patient's home med of Gemtesa 75mg (vibegron) has been verified. 3 tabs in bottle only.
[2025-06-27] MEDS: SENNA/DOCUSATE SODIUM TABLET 2 TAB PO ×2 (19:54→20:03)
[2025-06-27] MEDS: VIBEGRON 75 MG PO (19:55)
[2025-06-27] MEDS: DOXYCYCLINE HYCLATE 100 MG TABLET PO (19:55)
[2025-06-27] MEDS: [UNRECOGNIZED DRUG - OTHER] PO (19:55)
[2025-06-27] MEDS: DUTASTERIDE 0.5 MG CAPSULE PO (19:55)
[2025-06-27] MEDS: MELATONIN 3 MG TABLET PO (20:04)
[2025-06-27] MEDS: MIDODRINE HCL 2.5 MG TABLET 5 MG PO (20:04)
[2025-06-28] VITALS (7 sets, daily range): BP systolic 100–115; BP diastolic 61–76; PULSE 86–88; RESP 18–22; TEMP 36.3–36.6; O2SAT 91–93
[2025-06-28] MEDS: FLUTICASONE/UMECLIDIN/VILANTER 100-62.5-25 MCG ELLIPTA 1 PUFF INHALATION (08:01)
--- NOTE | 2025-06-28 08:07 | PM.IMPN ---
Progress Note: A&P Assessment and Plan (1) CHF (congestive heart failure): Qualifiers: Heart failure chronicity: acute on chronic Heart failure type: combined systolic and diastolic Qualified Code(s): I50.43 - Acute on chronic combined systolic (congestive) and diastolic (congestive) heart failure Code(s): I50.9 - Heart failure, unspecified Status: Acute Assessment and Plan: Patient states he gained over 10 lb over the last 3 days. He is unable to walk across a room without having worsening shortness of breath. He further states that his abdomen feels bloated. BNP 8820 (previously 4610). - Current medications: Jardiance 10 mg daily, bumex 2 mg po daily transitioned to 1 mg IV BID for current exacerbation - Chest x-ray shows CHF with superimposed probable pneumonia - Repeat CXR on 06/27 following diuresis showed CHF - Echo performed on 06/26 shows EF 45-50%, left ventricle moderately enlarged, right ventricle mildly enlarged, left atrium severely enlarged, right atrium severely enlarged, moderate pulmonary hypertension - Monitor vital signs, I&Os, BUN/creatinine, daily weights, neuro status and patient is a fall risk - Monitor serum electrolytes, Keep serum Potassium>4 and serum Magnesium>2 and CBC (2) Pneumonia: Qualifiers: Laterality: unspecified laterality Lung location: unspecified part of lung Pneumonia type: due to unspecified organism Qualified Code(s): J18.9 - Pneumonia, unspecified organism Code(s): J18.9 - Pneumonia, unspecified organism Status: Acute Assessment and Plan: Dyspnea on exertion with decreased activity tolerance. CXR: CHF superimposed probable pneumonia patient endorsing a cough that is intermittently productive - started on CAP tx: azithromycin ceftriaxone on 06/26, transitioned to oral antibiotics on 06/27 - Viral PCR: negative for Flu/COVID/RSV - no supplemental O2 requirement - Monitor vital signs, I&Os, neuro status and patient is a fall risk - Follow WBC, serum electrolytes, temperature curves and cultures (3) Stage 3b chronic kidney disease: Code(s): N18.32 - Chronic kidney disease, stage 3b Status: Acute Assessment and Plan: Chronic, baseline creatinine around 1.4 Creatinine uptrending likely related to diuresis, discontinued the IV lasix and transitioned the PO bumex to IV - UOP remains stable - trend renal function (4) COPD (chronic obstructive pulmonary disease): Qualifiers: COPD type: unspecified COPD Qualified Code(s): J44.9 - Chronic obstructive pulmonary disease, unspecified Code(s): J44.9 - Chronic obstructive pulmonary disease, unspecified Status: Chronic Assessment and Plan: Chronic, does not appear in acute exacerbation. No wheezing noted on exam. Dyspnea on exertion likely related to CHF exacerbation and fluid overload. -Continue Breztri -DuoNeb Q 6 p.r.n. (5) Constipation: Qualifiers: Constipation type: unspecified constipation type Qualified Code(s): K59.00 - Constipation, unspecified Code(s): K59.00 - Constipation, unspecified Status: Acute Assessment and Plan: Patient states he has had recent issues with constipation. Had taken MiraLax in the past. -MiraLax daily -docusate senna 2 tab HS -magnesium citrate 1 time-patient refused Resolved. (6) Depression with anxiety: Code(s): F41.8 - Other specified anxiety disorders Status: Acute Assessment and Plan: Patient states an increase in depression symptoms due to his current health status. Has a psychiatrist appointment next week. No current suicidal ideation or homicidal ideation. -continue citalopram (7) JESSICA (obstructive sleep apnea): Code(s): G47.33 - Obstructive sleep apnea (adult) (pediatric) Status: Acute Assessment and Plan: -continue BiPAP use while inpatient Time Spent With Patient Time with patient: 25 - 35 minutes Subjective Date/time seen: 06/28/25 08:07 Interval history: 79-year-old male who past medical history of depression, JESSICA, COPD, AFib, BPH, CKD stage III, CAD s/p CABG x4 in October 2019, pacemaker, cardiomyopathy presents to the hospital with complaints of dyspnea on exertion and weight gain of over 10 lb in the last 3 days. Review of Systems Review of Systems: All systems reviewed & are unremarkable except as noted in HPI and below Exam Narrative: AF HR General: male in no acute respiratory distress who is nontoxic appearing, sitting up on side of the bed. HEENT: Normocephalic. Atraumatic. Extraocular movement intact. Sclera clear and anicteric. No facial asymmetry. Chest: Lungs are slight diminishment and coarseness to the bases bilaterally. No wheezes or crackles. Speaking full sentences. CV: Heart was regular rate and rhythm. S1/S2. No murmurs, gallops, or rubs. Abd: Abdomen was soft. Nontender. Nondistended. Positive bowel sounds. Ext: No clubbing, cyanosis, or edema. Dp pulses bilaterally. Neuro: Patient is alert. Speech is clear. Objective Data Vital Signs Vital Signs: Vital Signs - 24 hr 06/27/25 09:15 06/27/25 12:00 06/27/25 14:00 Temperature 97.3 F L Pulse Rate 87 99 88 Respiratory Rate 18 Blood Pressure 97/65 L 101/75 Pulse Oximetry 97 Oxygen Delivery 06/27/25 16:00 06/27/25 20:00 06/27/25 22:00 Temperature 97.4 F L Pulse Rate 86 87 86 Respiratory Rate 16 Blood Pressure 102/71 Pulse Oximetry 93 Oxygen Delivery 06/27/25 22:45 06/27/25 22:45 06/28/25 00:00 Temperature Pulse Rate 80 87 Respiratory Rate Blood Pressure Pulse Oximetry 93 93 Oxygen Delivery CPAP CPAP 06/28/25 03:10 06/28/25 04:00 06/28/25 06:00 Temperature 97.3 F L Pulse Rate 87 87 86 Respiratory Rate 18 Blood Pressure 100/61 Pulse Oximetry 93 91 Oxygen Delivery CPAP Intake/Output Intake/Output: Intake & Output 06/25/25 06/26/25 06/27/25 06/28/25 23:59 23:59 23:59 23:59 Intake Total 540 1156 Output Total 400 1425 Balance 140 -269 Meds/Results Medications: Active Medications Generic Name Dose Route Start Last Admin Trade Name Freq PRN Reason Stop Dose Admin Acetaminophen 650 mg 06/26/25 18:28 Acetaminophen 325 Mg Tablet PO Q4H PRN Mild Pain (1-3) or Fever Albuterol/Ipratropium 3 ml 06/26/25 18:25 Ipratropium 0.5 Mg/Albuterol Sulfate 2.5 Mg (Base) Ampul.Neb 3 Ml INHALATION Q6HRT PRN Shortness Of Breath Or Wheezing Amoxicillin/Clavulanate Potassium 1 tablet 06/27/25 21:00 06/27/25 19:55 Amoxicillin/Clavulanate K 875-125 Mg Tab PO 1 tablet Q12HR RALF Administration Aspirin 81 mg 06/27/25 09:00 06/27/25 08:58 Aspirin 81 Mg Chewable Tablet PO 81 mg DAILY RALF Administration Bumetanide 1 mg 06/27/25 09:00 06/27/25 17:09 Bumetanide Inj 1 Mg/4 Ml Vial IV PUSH 1 mg BID RALF Administration Calcitriol 0.25 mcg 06/26/25 17:40 06/26/25 20:27 Calcitriol 0.25 Mcg Capsule PO Not Given [email or web address] RALF Citalopram Hydrobromide 30 mg 06/27/25 09:00 06/27/25 08:58 Citalopram Hydrobromide 10 Mg Tablet PO 30 mg DAILY RALF Administration Doxycycline Hyclate 100 mg 06/27/25 21:00 06/27/25 19:55 Doxycycline Hyclate 100 Mg Tablet PO 100 mg Q12HR RALF Administration Dutasteride 0.5 mg 06/26/25 21:00 06/27/25 19:55 Dutasteride 0.5 Mg Capsule PO 0.5 mg QHS RALF Administration Empagliflozin 10 mg 06/27/25 09:00 06/27/25 08:58 Empagliflozin 10 Mg Tablet PO 10 mg DAILY RALF Administration Ferrous Sulfate 325 mg 06/27/25 09:00 06/27/25 08:58 Ferrous Sulfate 325 Mg Tablet PO 325 mg DAILY RALF Administration Fluticasone/Umeclidinium/Vilanterol 1 puff 06/27/25 09:00 06/28/25 08:01 Fluticasone/Umeclidin/Vilanter 100-62.5-25 Mcg Ellipta INHALATION 1 puff DAILY RALF Administration Home Med 1 each 06/27/25 20:00 06/27/25 19:55 Nonformulary Drug Vibegron [Gemtesa] 75 Mg Tablet PO 07/27/25 19:59 1 each 1999 RALF Administration Melatonin 3 mg 06/26/25 21:00 06/27/25 20:04 Melatonin 3 Mg Tablet PO 3 mg QHS RALF Administration Midodrine 10 mg 06/27/25 09:00 06/27/25 09:19 Midodrine Hcl 10 Mg Tablet PO 10 mg DAILY RALF Administration Midodrine 5 mg 06/26/25 21:00 06/27/25 20:04 Midodrine Hcl 2.5 Mg Tablet PO 5 mg HS RALF Administration Ondansetron HCl 4 mg 06/27/25 10:48 06/27/25 11:09 Ondansetron Inj 4 Mg/2 Ml Vial IV PUSH 4 mg Q6H PRN Administration Nausea And Vomiting Polyethylene Glycol 17 gm 06/26/25 18:20 06/27/25 08:59 Polyethylene Glycol 3350 17 Gm Powd.Pack PO 17 gm QAM RALF Administration Pravastatin Sodium 40 mg 06/27/25 09:00 06/27/25 08:58 Pravastatin Sodium 20 Mg Tablet PO 40 mg DAILY RALF Administration Senna/Docusate Sodium 2 tab 06/26/25 21:00 06/27/25 20:03 Senna/Docusate Sodium Tablet PO 2 tab HS RALF Administration Vitamin D 25 mcg 06/27/25 09:00 06/27/25 08:58 Cholecalciferol (Vitamin D3) 25 Mcg (1,000 Units) Tablet PO 25 mcg DAILY RALF Administration Radiology Results: ITS Impressions Chest X-Ray 06/27/25 08:38 Impression: CHF Labs Labs: Laboratory Results - last 24 hr 06/26/25 06/27/25 11:22 05:08 WBC 7.1 7.3 RBC 4.64 4.33 L Hgb 13.8 L 12.8 L Hct 43.6 40.5 L MCV 94.0 93.5 MCH 29.7 29.6 MCHC 31.7 L 31.6 L RDW 15.3 H 15.1 H Plt Count 116 L 118 L MPV 11.1 H 11.1 H Immature Gran % (Auto) 0.3 0.3 Neut % (Auto) 86.1 H 76.2 H Lymph % (Auto) 7.4 L 11.6 L [place] % (Auto) 5.8 10.3 H Eos % (Auto) 0.3 1.0 Baso % (Auto) 0.1 L 0.6 Lymph # (Auto) 0.52 L 0.84 L [place] # (Auto) 0.4 0.8 H Eos # (Auto) 0.0 0.1 Baso # (Auto) 0.0 0.0 Abs Immat Gran (auto) 0.02 0.02 Absolute Neuts (auto) 6.1 5.5 Absolute Nucleated RBC 0.000 0.000 Nucleated RBC % 0.0 0.0 % Immature Plt Fraction 5.3 5.0 PT 15.1 H INR 1.2 APTT 29.8 Sodium 137 137 Potassium 3.9 3.6 Chloride 99 99 Carbon Dioxide 29 29 Anion Gap 9 9 BUN 31 H 32 H Creatinine 1.55 H 1.73 H Estim Creat Clear Calc 35 32 Estimated GFR 43 L 38 L Glucose 129 H 75 Calcium 8.5 8.0 L Magnesium 2.3 Total Bilirubin 1.4 H 1.3 AST 33 29 ALT 24 18 Alkaline Phosphatase 57 51 Troponin I 0.019 NT-Pro-B Natriuret Pep 8820 H 9000 H Total Protein 6.3 5.8 L Albumin 3.8 3.5 Quality VTE Prophylaxis VTE prophylaxis: mechanical ordered
[2025-06-28] MEDS: DOXYCYCLINE HYCLATE 100 MG TABLET PO (08:39)
[2025-06-28] MEDS: FERROUS SULFATE 325 MG TABLET PO (08:39)
[2025-06-28] MEDS: CITALOPRAM HYDROBROMIDE 10 MG TABLET 30 MG PO (08:39)
[2025-06-28] MEDS: MIDODRINE HCL 10 MG TABLET PO (08:39)
[2025-06-28] MEDS: PRAVASTATIN SODIUM 20 MG TABLET 40 MG PO (08:39)
[2025-06-28] MEDS: BUMETANIDE INJ 1 MG/4 ML VIAL IV PUSH (08:39)
[2025-06-28] MEDS: CHOLECALCIFEROL (VITAMIN D3) 25 MCG (1,000 UNITS) TABLET PO (08:39)
[2025-06-28] MEDS: EMPAGLIFLOZIN 10 MG TABLET PO (08:40)
[2025-06-28] MEDS: ASPIRIN 81 MG CHEWABLE TABLET PO (08:40)
[2025-06-28 08:53] LABS: Hematocrit 44.8 % (42.0-52.0); Hemoglobin 14.1 g/dL (14.0-18.0); Immature Platelet Fraction Pct 5.4 % (0.9-11.2); Mean Corpuscular HGB Conc 31.5 g/dl (32-36); Mean Corpuscular Hemoglobin 29.7 pg (26-34); Mean Corpuscular Volume 94.3 fl (80-100); Platelet Count Result 120 k/mm3 (150-375); Red Blood Count 4.75 M/mm3 (4.6-6.20); White Blood Count 7.5 K/mm3 (4.5-10.0)
[2025-06-28 09:15] LABS: Alanine Aminotransferase 29 U/L (6-50); Albumin Level 3.9 g/dL (3.5-5.1); Alkaline Phosphatase 78 U/L (38-126); Anion Gap 9 mmol/L (4-12); Aspartate Amino Transferase 40 U/L (17-59); Bilirubin,Total 1.6 mg/dL (0.2-1.3); Blood Urea Nitrogen 39 mg/dL (9-20); Calcium 8.6 mg/dL (8.4-10.2); Carbon Dioxide 32 mmol/L (22-30); Chloride 94 mmol/L (98-107); Estimated CRCL calculation 31 ml/min; Estimated Glomerular Filt Rate 36; Glucose 88 mg/dL (65-110); Potassium 4.0 mmol/L (3.4-5.0); Sodium 135 mmol/L (137-145); Total Protein 6.4 g/dL (6.3-8.2)
--- NOTE | 2025-06-28 13:32 | P.DS_ITS ---
DS: Admitting Diagnosis Discharge Date 06/28/2025 Admitting Diagnosis CHF pneumonia stage 3b CKD COPD Constipation depression with anxiety JESSICA DS: Discharge Diagnosis Discharge Diagnosis (1) CHF (congestive heart failure): Qualifiers: Heart failure chronicity: acute on chronic Heart failure type: combined systolic and diastolic Qualified Code(s): I50.43 - Acute on chronic combined systolic (congestive) and diastolic (congestive) heart failure Code(s): I50.9 - Heart failure, unspecified Status: Acute (2) Pneumonia: Qualifiers: Laterality: unspecified laterality Lung location: unspecified part of lung Pneumonia type: due to unspecified organism Qualified Code(s): J18.9 - Pneumonia, unspecified organism Code(s): J18.9 - Pneumonia, unspecified organism Status: Acute (3) Stage 3b chronic kidney disease: Code(s): N18.32 - Chronic kidney disease, stage 3b Status: Acute (4) COPD (chronic obstructive pulmonary disease): Qualifiers: COPD type: unspecified COPD Qualified Code(s): J44.9 - Chronic obstructive pulmonary disease, unspecified Code(s): J44.9 - Chronic obstructive pulmonary disease, unspecified Status: Chronic (5) Constipation: Qualifiers: Constipation type: unspecified constipation type Qualified Code(s): K59.00 - Constipation, unspecified Code(s): K59.00 - Constipation, unspecified Status: Acute (6) Depression with anxiety: Code(s): F41.8 - Other specified anxiety disorders Status: Acute (7) JESSICA (obstructive sleep apnea): Code(s): G47.33 - Obstructive sleep apnea (adult) (pediatric) Status: Acute DS: Summary Hospital Course Reason for hospitalization: CHF pneumonia stage 3b CKD COPD Constipation depression with anxiety JESSICA Hospital Course: 79-year-old male who past medical history of depression, JESSICA, COPD, AFib, BPH, CKD stage III, CAD s/p CABG x4 in October 2019, pacemaker, cardiomyopathy presents to the hospital with complaints of dyspnea on exertion, abdominal bloating, and weight gain of over 10 lb. BNP elevated on admission. Chest XR obtained and showed CHF with superimposed probable pneumonia. Patient started on IV diuretics and antibiotics for concern of underlying pneumonia. Echo obtained and showed EF 45-50%, left ventricle moderately enlarged, right ventricle mildly enlarged, left atrium severely enlarged, right atrium severely enlarged, moderate pulmonary hypertension. Repeat cxr showed CHF. Patient stated that his shortness of breath and abdominal bloating had resolved. He was transitioned back to his home bumex and oral antibiotics to complete the course for pneumonia at time of discharge. Patient states he has a follow-up appointment with his cafeteria table attendant on Jul 03. Discussed with patient that he is to continue his daily weights and heart healthy diet, he stated udnerstanding. On admission patient developed a mild nathan on ckd. Possibly related to volume overload in relation to the chf exacerbation vs him being on IV lasix and his home po bumex on admission. Discontinued the IV lasix and transitioned to only IV bumex and the renal function improved. He continued to have adequate urine output. Discussed with patient that at time of discharge his creatinine is still slightly elevated from his baseline CKD and he will require an outpatient bmp to reassess which is to be CC to his PCP. He stated understanding. Patient has a history of depression and anxiety which has increased due to his current health status. Per RN patient stated that he has had prior thoughts of SI however is not currently having SI/HI. He continued to deny SI/HI throughout admission. He has a psychiatrist appointment next week. He is to continue his citalopram and follow up with psychiatry as scheduled. Patient states he feels back to his baseline. He has no complaints denying chest pain, shortness a breath, palpitations, nausea/vomiting, abdominal pain. He also denies any dizziness/lightheadedness and states he was able to ambulate throughout the halls without any noted weakness. Patient discharged home with family in a stable condition. He is to follow-up with his primary care provider in 1 week and psychiatry and Cardiology as scheduled. Status at Discharge Functional status at discharge: independent ambulation Time Spent with Patient Time attestation: Total time spent providing and/or coordinating discharge services: Time spent: Greater than 30 minutes Exam Narrative: AF HR 87 RR 22 Spo2 93 BP 115//76 General: male in no acute respiratory distress who is nontoxic appearing, sitting up on side of the bed. HEENT: Normocephalic. Atraumatic. Extraocular movement intact. Sclera clear and anicteric. No facial asymmetry. Chest: Lungs are clear bilaterally. No wheezes or crackles. Speaking full sentences. CV: Heart was regular rate and rhythm. S1/S2. No murmurs, gallops, or rubs. Abd: Abdomen was soft. Nontender. Nondistended. Positive bowel sounds. Ext: No clubbing, cyanosis, or edema. Dp pulses bilaterally. Neuro: Patient is alert. Speech is clear. DS: Data Data Completed and Pending Completed studies during hospitalization: chest xr chest xr Labs on day of discharge: Labs from last 24 hours 06/28/25 08:26 WBC 7.5 RBC 4.75 Hgb 14.1 Hct 44.8 MCV 94.3 MCH 29.7 MCHC 31.5 L RDW 15.3 H Plt Count 120 L MPV 11.0 H % Immature Plt Fraction 5.4 Sodium 135 L Potassium 4.0 Chloride 94 L Carbon Dioxide 32 H Anion Gap 9 BUN 39 H Creatinine 1.82 H Estim Creat Clear Calc 31 Estimated GFR 36 L Glucose 88 Calcium 8.6 Total Bilirubin 1.6 H AST 40 ALT 29 Alkaline Phosphatase 78 Total Protein 6.4 Albumin 3.9 Discharge Plan Discharge Attending physician on discharge: Bhavesh Flores Consulting providers: Candice Moy Discharging Clinician: Candice Moy Anticipated Discharge Date/Time: 06/28/25 13:11 Patient Disposition: Home Activity: as tolerated Diet: as tolerated and heart healthy Discharge Instructions: Patient admitted to the hospital for a heart failure exacerbation ? Medications:?Continue Jardiance 10 mg daily and bumex 2 mg po daily. Take all prescribed medications exactly as directed. Do not stop or change doses without consulting your healthcare provider. ? Diuretics and Fluid Management:?Take diuretics as prescribed to help remove excess fluid. Monitor for signs of dehydration or low potassium (muscle cramps, weakness). Unless otherwise instructed, limit fluid intake to about 2 liters (64 ounces) per day, especially if you have been told you are at risk for fluid overload ? Daily Weight Monitoring:?Weigh yourself every morning after urinating and before eating, using the same scale. Record your weight daily. Notify your healthcare provider if you gain more than 2-3 pounds in one day or 5 pounds in a week, as this may indicate fluid retention. ? Diet:?Follow a low-sodium diet (generally less than 2,000 mg per day) to help control fluid buildup. Avoid processed foods, canned soups, and salty snacks. Read food labels for sodium content. ? Activity:?Stay as active as possible within your limits. Light walking and daily activities are encouraged unless otherwise instructed. ? Symptom Monitoring:?Watch for symptoms such as increased shortness of breath, swelling in your legs or abdomen, rapid weight gain, chest pain, dizziness, or confusion. If these occur, contact your healthcare provider promptly or seek emergency care if severe. Keep scheduled appointment with Cardiology on Jul 03 Patient noted to have a slightly elevated creatinine level likely related to diuresis Obtain a blood draw in 5 days to reassess, results will be CC to your primary care provider Monitor urine output During admission patient diagnosed with pneumonia Continue azithromycin and Augmentin, attached is information on this medication Monitor blood pressures Take caution while standing, rising, or moving Change positions slowly taking a break between each position change If you standing feel dizzy sit back down and take a break Encouraged to continue with yearly vaccinations Return to the emergency department if he developed sudden shortness of breath, chest pain, nausea, vomiting, upset stomach or intractable diarrhea Return to the emergency department if you develop fever greater than 100.5 Follow-up with the primary care physician within 1-2 weeks Thank you for choosing [facility] for your healthcare needs Patient Instructions: Antibiotic Form, Doxycycline (By mouth), Amoxicillin/Clavulanate Potassium (By mouth), Heart Failure (DC), Pneumonia (DC) Patient Language: Turkmen Stand Alone Forms: General Discharge Information Follow-up/Referrals: Albert Smith, [Primary Care Provider, Internal Medicine] - 1 Week Discharge Medications: New doxycycline hyclate 100 mg Tablet 100 mg PO Q12HR Qty: 9 0RF amoxicillin-pot clavulanate 875-125 mg tablet 1 tablet PO Q12H Qty: 9 0RF Continued pravastatin 40 mg tablet 40 mg PO DAILY bumetanide 2 mg tablet 2 mg PO DAILY midodrine 5 mg tablet 10 mg PO DAILY cholecalciferol (vitamin D3) 25 mcg (1,000 unit) capsule 25 mcg PO DAILY flaxseed oil 1,000 mg capsule 1,400 mg PO DAILY Rx Instructions: administer with a meal dutasteride 0.5 mg capsule 0.5 mg PO QHS Jardiance 10 mg tablet 10 mg PO DAILY calcitriol 0.25 mcg capsule 0.25 mcg PO 3XW Qty: 30 5RF Rx Instructions: take on Mondays, Wednesdays, and Fridays testosterone cypionate [Depo-Testosterone] 200 mg/mL oil 120 mg IM WEEKLY Qty: 10 2RF melatonin 3 mg capsule 3 mg PO QHS Breztri Aerosphere 160-9-4.8 mcg/actuation HFA aerosol inhaler 2 inh inhalation BID midodrine 5 mg tablet 5 mg PO HS Gemtesa 75 mg tablet 75 mg PO 2000 ferrous sulfate 325 mg (65 mg iron) Tablet 325 mg PO DAILY aspirin 81 mg Tablet 81 mg PO DAILY multivit with min-folic acid 0.4 mg tablet 1 tablet PO BID citalopram 20 mg tablet 30 mg PO DAILY Qty: 135 1RF Other Ambulatory Orders: Basic Metabolic Panel (Routine) Timeframe: 5 Days Location: Determined by Patient Ordered By: Candice Moy Date of admission: 06/26/25 13:06 Primary Care Provider: Albert Smith Admitting Provider: Kyle Irby Attending physician on admission: Kyle Irby Condition: Stable Hospitalist MIPS Heart Failure (Exclusion) Patient has history of Heart Transplant or Left Ventricular Assistive Device?: No IF YES, STOP HERE Heart Failure (Qualifier) Patient has current or prior documentation of LVEF less than or equal to 40%, or mod/servere depressed LVSF?: No IF NO, STOP HERE
== END 2025-06-28 14:20 | disposition home or self-care (01) | DRG 291 ==
LOC: ANHED 13:01 → ANH3MEDSUR 13:36
PROVIDERS: Family Medicine; Internal Medicine; Nurse Practitioner Adult Health; Admitting Provider Family Medicine; Emergency Provider Emergency Medicine; PCP Internal Medicine; Visit Provider Student in an Organized Health Care Education/Training Program
DX: I13.0 Hypertensive heart and chronic kidney disease with heart failure and stage 1 through stage 4 chronic kidney disease, or unspecified chronic kidney disease (principal); I50.43 Acute on chronic combined systolic (congestive) and diastolic (congestive) heart failure; J18.9 Pneumonia, unspecified organism; N17.9 Acute kidney failure, unspecified; N18.32 Chronic kidney disease, stage 3b; I25.10 Atherosclerotic heart disease of native coronary artery without angina pectoris; J44.9 Chronic obstructive pulmonary disease, unspecified; I48.91 Unspecified atrial fibrillation; I42.9 Cardiomyopathy, unspecified; G47.33 Obstructive sleep apnea (adult) (pediatric); K59.00 Constipation, unspecified; M19.90 Unspecified osteoarthritis, unspecified site; N40.1 Benign prostatic hyperplasia with lower urinary tract symptoms; F41.8 Other specified anxiety disorders; Z95.1 Presence of aortocoronary bypass graft; Z87.891 Personal history of nicotine dependence; Z86.16 Personal history of COVID-19; Z95.810 Presence of automatic (implantable) cardiac defibrillator; Z79.01 Long term (current) use of anticoagulants
CPT/HCPCS: 36415; 71046; 80053; 80069; 82306; 82570; 83735; 83880; 83970; 84156; 84484; 85025; 85027; 85055; 85610; 85730; 87040; 93005; 94640; 99285; A9270; C8929; J0456; J0696; J1938; J1939; J2405; J7050; Q9957

== ENCOUNTER 2025-07-01 14:57 | Outpatient (CLI) | payer MEDICARE, OTHER, SELFPAY ==
--- OUTSIDE RECORDS SUMMARY | 2025-07-01 15:18 | XMS_ITS | Clinical Summary ---
Author Organization [facility] [place] Address [address] [place] [address] Care Team Providers Care Tool Specialist Name Role Phone John Lin MD Primary [...] 2018 INFLUENZA VACCINE (#1) 2025 Insurance MEDICARE [facility] Care Teams Tool Specialist Relationship Specialty Start Date End Date John Lin MD [address] [place] [id number] PCP - General Internal Medicine 06/01/21
--- OUTSIDE RECORDS SUMMARY | 2025-07-01 15:18 | XMS_ITS | Encounter Summary ---
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 Microbiology SPECIMEN FROM NASOPHARYNGEAL STRUCTURE / Unknown Collection / Unknown 02/22/2020 10:40 AM CDT 02/22/2020 4:[address] [facility] - 02/22/2020 11:54 PM CDT This Real Time RT-PCR assay was developed and its performance characteristics determined by [facility]. This test has been [...] LAB - MICROBIOLOGY ORDERABLES Fi nal Result [facility] [address] [place] [address], [facility] [phone] documented in this encounter Visit Diagnoses Not on filedocumented in this encounter Additional Health Concerns Infection Onset Date Last Indicated Resolved Time COVID-19 Under Investigation 02/22/2020 02/22/2020 02/22/2020 11:54 PM CDT documented as of this encounter Care Teams Aboriginal Ceremonial Celebrant Relationship Specialty Start Date End Date Albert Smith DO [address] [place] [phone] PCP - General Internal Medicine 04/02/24 documented as of this encounter
--- OUTSIDE RECORDS SUMMARY | 2025-07-01 15:18 | XMS_ITS | Encounter Summary ---
Author Organization [facility] Address [address] [place] [address] Phone Care Team Providers Care Radiology Asst Name Role Phone John Lin MD Primary Care Provider [phone] Octavio Downey MD Primary Care Provider + Octavio Downey MD Unavailable [phone] Cookie Voss MD Unavailable [phone] Fred Hussein MD Unavailable [phone] Encounter Details Date Type Department Care Team (Late st Contact Info) Description 09/18/2019 Orders Only [facility] Medicine Neurology Outreach [address] [place] [address] Scanning, Provider Social History Tobacco Use Types Packs/Day Years Used Date Smoking Tobacco: Former Smokeless Tobacco: Never Alcohol Use Standard Drinks/Week Comments No 0 (1 standard drink = 0.6 oz pur e alcohol) Sex and Gender Information Value Date Recorded Sex Assigned at Not on file Legal Sex Male 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 [address] [place] [address] Referring Physician Internal Medicine 03/14/23 [place] [address] [facility] [address] [place] [address] Consulting Physician Pulmonary Disease 03/14/23 Fred Hussein MD [address] [facility] [address] [place] [address] Consulting Physician Cardiology 03/14/23 documented as of this encounter
--- OUTSIDE RECORDS SUMMARY | 2025-07-01 15:18 | XMS_ITS | Clinical Summary ---
Author Organization [facility] Address [address] [place] [address] Care Team Providers Care Ladle Liner Name Role Phone Albert Smith DO Primary Care Provider [phone] Source Comments [facility],non-owned Affiliates and Associated Physician Practices is amultiple site organization consisting of ambulatory clinics and hospital sitesin [place], [place], [place] and [place]. This disclosure is being madepursuant to the Care Everywhere program and may not contain all information available regarding this patient. Last updated 18.[facility] Allergies Active Allergy Reactions Criticality Noted Date [...] mg by mouth once daily Active Multiple Vitamins-Fish Hatchery Inspector als (MULTIVITAMIN ADULT PO) Take by mouth [...] V ICD 02/26/2020 Overview (02/26/2020): SJM 3369-40Q [id number] Implanted 02/26/20 Dr Childs RV: SJM 7122Q SN:[id number] 02/26/20 LV: SJM 1458Q SN:[id number] 02/26/20 Nonrheumatic tricuspid valve regurgitation 01/29 Coronary artery disease involving ambler coronar y artery 11/01/2019 Overview (11/22/2019): 06/14 [...] new focal RWMAs, severe LAE, mild BRIANDA, zymd-bi-ztpzhobk MR, mild AI/TR/PI, RVSP 38, no pericardial [...] Description 04/02/2025 2:10 PM CDT Ancillary Procedure [facility] - Radiology [address] [place] [phone] John Hammonds MD Primary osteoarthritis of both knees 04/02/2025 2:00 PM CDT Office Visit 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 Not on file Not on angela e Last Filed Vital Signs Vital Sign Reading Time Taken Comments Blood Pressure 120/70 06/27/2020 2:49 PM CDT Pulse 62 06/27/2020 2:49 PM CDT Temperature 37.1 C (98.7 F) 11/01/2019 8:34 AM HOUSE WORKER Respiratory Rate 10 05/09/2020 3:19 PM CDT Oxygen Saturation 98% 06/27/2020 2:49 PM CDT Inhaled Oxygen Concentration - - Weight 77.1 kg (170 lb) 04/02/2024 2:31 PM CDT Height 177.8 cm (5' 10) 04/02/2024 2:31 PM CDT Body Mass Index 24.39 04/02/2024 2:31 PM CDT Plan of Treatment Upcoming Encounters Date Type Department Care Team (Late st Contact Info) Description 07/02/2025 2:00 PM HOUSE WORKER Office Visit [facility] [address] [address] [place] [address] [address] Health Maintenance Due Date Last [...] Bilat 3Vw (04/02/2025 2:22 PM CDT) Narrative [facility] [address] - 04/02/2025 2:22 PM CDT Please see progress note in Epic for results. us John Hammonds MD DIAGNOSTIC IMAGING ORDERABLES Final Result [facility] [address] from Last 3 Months Insurance [employer] MEDICARE MEDICARE MEDICARE [employer] Advance Directives * Full Code (Latest Code Status on File) Date Activated Date Inactivated Comments 05/19/2019 4:57 PM 05/23/2019 2:03 PM Care Teams Ladle Liner Relationship Specialty Start Date End Date Albert Smith DO [address] [place], [place] [phone] PCP - General Internal Medicine 04/02/24
--- OUTSIDE RECORDS SUMMARY | 2025-07-01 15:18 | XMS_ITS | Clinical Summary ---
Author Organization [facility] Address [address] [place] [address] Care Team Providers Care Regional Merchandising Manager Name Role Phone Octavio Downey MD Primary Care Provider + Octavio Downey MD Unavailable [phone] Cookie Voss MD Unavailable [phone] Fred Hussein MD Unavailable [phone] Allergies No known active allergies Medications furosemide [...] Cardiac defibrillator in place 02/26/2020 Overview (03/03/2023): [facility] 3369-40Q [id number] Implanted 02/26/20 Dr Childs RV: [facility] 7122Q SN:[id number] 02/26/20 LV: [facility] 1458Q SN:[id number] 02/26/20 JESSICA (obstructive sleep apnea) 04/25/2019 Overview [...] - 06/06/2025 11:59 PM CDT Hospital Encounter [facility] [address] [place] [address] Other nonspecific abnormal finding of lung field Discharge Disposition: Discharge to home or self care from Last 3 Months Surgical History Surgery Date Site/Laterality Comments [place] UNLISTED PROCEDURE ABDOME N PERITONEUM & OMENTUM [...] How often do you attend chur or yazidi services? Never 03/16/2023 Do you belong to any clubs o r organizations such as anglican groups, unions, fraternal or athletic groups, or [...] place to sleep or slept in a [place] facility (including now)? No 03/16/2023 Personal Safety Answer Date Recorded Have you ever been in or are you currently in a harmful physical or emotional relationship or is someone making you feel afraid or unsafe? Denies 12/19/2023 Sex and Gender Information Value Date Recorded Sex Assigned at Not on file Legal Sex Male 1:18 AM ACID REMOVER Gender Identity Not on file Sexual Orientation [...] 12/24/2018 10/29/2018 Depression Screening 03/14/2024 03/14/2023, 03/14/20 Fall Risk Assessment 07/13/2024 07/13/2023 Covid-19 Vaccine (4 - 2024-2 6 season) 2025 05/23/2021, 10/21/2020, 09/29/2020 Influenza Vaccine (#1) 2025 , 06/23/2021, 05/10/2020, Additional history exists Pneumococcal vaccine 65+ Completed 020, 10/27/2017, 06/11/2015, Additional history exists Abdominal Aortic Aneurysm (A AA) Screen Completed 09/09/2023, 05/19/2019 Medical Devices Implanted Type Area Network Operations Manager Device Identifier Shelf Expiration Date Model / Serial / Lot Pacemaker-02/10 Implanted:01/27 (Quantity not on file) Pacemaker Left: Chest Procedures Procedure Name Priority Date/Time Associated Diagnosis Comments CT CHEST WO CONTRAST Schedule Routine, Read Routine (OP Routine) 06/06/2025 12:00 PM CDT Other nonspecific abnormal finding of lung field CT ABDOMEN PELVIS W CONTRAST ED 09/09/2023 12:58 PM ACID REMOVER from Last 3 Months or Most Recently [...] Electronically signed by: Albert Brown II, D.O. us Quan Casas MD IMG CT PROCEDURES Estella l Result * CT Abdomen Pelvis W Contrast (09/09/2023 12:58 PM ACID REMOVER) Anatomical Region Laterality Modality Body N/A Computed Tomogra phy 09/09/2023 1:09 PM ACID REMOVER Impressions 09/09/2023 1:09 PM ACID REMOVER 1. Large left rectus abdominis hematoma measuring [...] Brown II, D.O. Narrative 09/09/2023 1:09 PM ACID REMOVER EXAMINATION: CT ABDOMEN PELVIS W CONTRAST DATE: [...] Recently Relevant to Health Maintenance Insurance MEDICARE [employer] MEDICARE FOR LIFE MEDICARE FOR LIFE MEDICARE Advance Directives For more information, please contact: [phone] Documents on File Type Date Recorded Patient Dance Master Expl anation ADVANCE DIRECTIVE 03/16/2023 3:19 PM POWER OF SURFBOARD DESIGNER-MEDICAL ADVANCE DIRECTIVE 03/08/2023 5:06 PM POWER OF SURFBOARD DESIGNER-MEDICAL Power of Security Professionals 03/04/2023 11:54 AM * Full Code (Latest Code Status on File) Date Activated Date Inactivated Comments 12/19/2023 10:02 AM 12/19/2023 3:43 PM * Full Code Date Activated Date Inactivated Comments 03/15/2023 9:01 AM 03/24/2023 2:30 PM * Full Code Date Activated Date Inactivated Comments 03/03/2023 11:01 AM 03/15/2023 8:57 AM Care Teams Regional Merchandising Manager Relationship Specialty Start Date End Date Octavio Downey MD [address] [place] [address] PCP - General Internal Medicine 03/03/23 Octavio Downey MD [address] [facility] [address] [place] [address] Referring Physician Internal Medicine 03/14/23 [place] [address] [address] [place] [address] Consulting Physician Pulmonary Disease 03/14/23 Fred Hussein MD [address] [place] [address] Consulting Physician Cardiology 03/14/23
--- OUTSIDE RECORDS SUMMARY | 2025-07-01 15:18 | XMS_ITS | Encounter Summary ---
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 Gender Identity Not on file Sexual Orientation [...] documented as of this encounter Care Teams Car Shifter Relationship Specialty Start Date End Date John Lin MD [address] [place] [address] PCP - General 12/15/16 03/02/23 Octavio Downey MD [address] [facility] [place] [address] PCP - General Internal Medicine 03/03/23 Octavio Downey MD [address] [place] [address] Referring Physician Internal Medicine 03/14/23 [place] [address] [place] [address] Consulting Physician Pulmonary Disease 03/14/23 Fred Hussein MD [address] [place] [address] Consulting Physician Cardiology 03/14/23 documented as of this encounter
--- OUTSIDE RECORDS SUMMARY | 2025-07-01 15:19 | XMS_ITS | Clinical Summary ---
Author Organization [facility] Address [address] [place] [address] Care Team Providers Care Tobacco Farmworker Name Role Phone Unavailable Primary Care Provider [...]
[2025-07-01 19:25] LABS: Anion Gap 7 mmol/L (4-12); Blood Urea Nitrogen 34 mg/dL (9-20); Calcium 8.8 mg/dL (8.4-10.2); Carbon Dioxide 33 mmol/L (22-30); Chloride 97 mmol/L (98-107); Estimated Glomerular Filt Rate 40; Glucose 88 mg/dL (65-110); Potassium 4.0 mmol/L (3.4-5.0); Sodium 137 mmol/L (137-145)
== END 2025-07-01 14:58 | disposition home or self-care (01) ==
LOC: ANHGOSHLAB 14:57
PROVIDERS: PCP Internal Medicine; Visit Provider Student in an Organized Health Care Education/Training Program
DX: N18.32 Chronic kidney disease, stage 3b (principal)
CPT/HCPCS: 36415; 80048

== ENCOUNTER 2025-07-26 13:50 | Outpatient (CLI) | payer MEDICARE, OTHER, SELFPAY ==
--- OUTSIDE RECORDS SUMMARY | 2023-01-19 05:30 | XMS_ITS | Continuity of Care Document ---
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 Role Phone Lavern PT, CMPT, Arnol Unavailable Letitia vailable Procedures Procedure Date Progress Note Therapeutic Activities Neuromuscular Re-Ed Therapeutic Exercise Therapeutic Activities Neuromuscular Re-Ed Therapeutic Exercise Therapeutic Activities Neuromuscular Re-Ed Therapeutic Exercise Progress Note Therapeutic Activities Neuromuscular Re-Ed Therapeutic Exercise Therapeutic Activities Neuromuscular Re-Ed Therapeutic Exercise Progress Note Therapeutic Activities Neuromuscular Re-Ed Therapeutic Activities Neuromuscular Re-Ed Therapeutic Exercise Therapeutic Activities Neuromuscular Re-Ed Therapeutic Exercise Therapeutic Activities Neuromuscular Re-Ed Therapeutic Exercise Doc neg elder mal no plan PT Evaluation Moderate Complexity Therapeutic Activities Therapeutic Exercise Advance Directives Directive Yes / No Effective Date File Name No Information Encounters Encounter Description Practice Location Reason(s) For Visit Diagnoses Date Provider Providers Copied on Encounter [address], [id number], tel:[phone] John No Information Isaías Ambrose. [address] [facility], [facility] [address], [place], [facility], . tel:[phone] Referring Provider: Josh Self [facility] [address] [facility] [address] [facility], [place], [place], [facility]. tel:[phone], [id number], tel:[phone] John No Information Isaías Ambrose. [address] [place] [address], [facility] [address], [place], [facility], . tel:[phone] Referring Provider: Josh Self [address] [address] [facility] [address] [facility], [place], [place], [facility]. tel:[phone], [id number], tel:[phone] John No Information Isaías Ambrose. [address] [place] [address], [facility] [address], [place], [facility], . tel:[phone] Referring Provider: Josh Self [address] [address] [facility] [address] [facility], [place], [place], [facility]. tel:[phone], [id number], tel:[phone] John No Information Isaías Ambrose. [address] [place] [address], [facility] [address], [place], [facility], . tel:[phone] Referring Provider: Josh Self [address] [address] [facility] [address] [facility], [place], [place], [facility]. tel:[phone], [place], [place], [id number], tel:[phone] [place] No Information Isaías Ambrose. [address] [facility], [address] [facility], [place], [place], [facility], . tel:[phone] Referring Provider: Marry Bowie[address] [facility] [address] [facility], [place], [place], [facility]. tel:[phone] [address], [place], [place], [id number], tel:[phone] John No Information Isaías Ambrose. [address] [place] [address], [address] [place] [address], [facility], . tel:[phone] Referring Provider: Vi Bowie [address] [facility] [address] [facility], [place], [place], [facility]. tel:[phone] [address], [place], [place], [id number], tel:[phone] [place] No Information Isaías Ambrose. [address] [place] [address], [address], [place], [place], [facility], . tel:[phone] Referring Provider: Vi Bowie [address] [facility] [address] [facility], [place], [place], [facility]. tel:[phone], [place], [id number], tel:[phone] John No Information Isaías Ambrose. [address] [place] [address], [address], [place], [facility], . tel:[phone] Referring Provider: Josh Self [address] [address] [facility] [address] [facility], [place], [place], [facility]. tel:[phone], [id number], tel:[phone] [place] No Information Isaías Ambrose. [address] [facility], [facility] [address], [place], [address] [place] [address]. tel:[phone] Referring Provider: Josh Self [address] [address] [facility] [address] [place] [address], [facility]. tel:[phone], [id number], tel:[phone] [place] No Information Isaías Ambrose. [address] [facility], [address], [place], [facility], . tel:[phone] Referring Provider: Josh Self [address] [address] [facility] [address] [place] [address], [facility]. tel:[phone] Family History Family Member Type Diagnosis Age At Onset No Information Payers Payer name Insurance type Covered libertarian ID Authorotilioa tilily(s) Medicare [place] [id number] For Life Medicare Se condary Only CI [id number] Social History Type Description Quantity Date Captured Comments Sex Male Smoking Status No Information Chief Complaint And Reason For Visit No Information Reason For Referral Reason For Referral No Information History Of Present Illness Encounter Date Complaint History Of Prese nt Illness No Information Functional Status Date Functional Assessmen t No Information Instructions Date Instruction Elie grant Giving encouragement to exercise Related to Overweight Giving encouragement to exercise Related to Overweight Assessments Type Assessment Date No Information Patient Care Teams Name Effective Dates (start - stop) Status Members No Information
--- OUTSIDE RECORDS SUMMARY | 2025-07-26 13:56 | XMS_ITS ---
Laboratory report Created on: July 25, 2025 GIACOMO HORAN : 1945 Sex: Male Author Name YESSENIA MAURER Organization Unknown PROBLEMS Problems List Code Description I50.23 I25.10 I25.5 I34.0 I36.1 I35.1 I48.91 R55 I10 E78.00 I47.29 RESULTS Laboratory Orders Date Order Code Test 2025-07-22 215582 BASIC METABOLIC PANEL (8) 2025-07-22 167251 NT-PROBNP Laboratory Results Date LOINC Test Value Unit Reference Range Interpre tation 2025-07-22 2345-7 GLUCOSE 115 MG/DL 70-99 H 2025-07-22 3094-0 BUN 45 MG/DL 8-27 H 2025-07-22 2160-0 CREATININE 1.88 MG/DL 0.76-1.27 H 2025-07-22 89907-9 EGFR 35 ML/MIN/1.73 >59 L 2025-07-22 3097-3 BUN/CREATININE RATIO 24 10-24 2025-07-22 2951-2 SODIUM 139 MMOL/L 826-376 9564-11-24 2823-3 POTASSIUM 4.4 MMOL/L 3.5-5.2 2025-07-22 2075-0 CHLORIDE 94 MMOL/L 96-106 L 2025-07-22 2028-9 CARBON DIOXIDE, TOTAL 30 MMOL/L 20-29 H 2025-07-22 25172-9 CALCIUM 9.5 MG/DL 8.6-10.2 2025-07-22 74902-5 NT-PROBNP 8206 PG/ML 0-486 H
--- OUTSIDE RECORDS SUMMARY | 2025-07-26 13:56 | XMS_ITS | Encounter Summary ---
Author Organization [facility] Address [address] [place] [address] Phone Care Team Providers Care Pancake Professional Name Role Phone John Lin MD Primary Care Provider [phone] Octavio Downey MD Primary Care Provider + Octavio Downey MD Unavailable [phone] Cookie Voss MD Unavailable Fred Hussein MD Unavailable [phone] Encounter Details Date Type Department Care Team (Late st Contact Info) Description 09/18/2019 Orders Only [facility] Medicine Neurology Outreach [address] [place] [address] Scanning, Provider Social History Tobacco Use Types Packs/Day Years Used Date Smoking Tobacco: Former Smokeless Tobacco: Never Alcohol Use Standard Drinks/Week Comments No 0 (1 standard drink = 0.6 oz pur e alcohol) Sex and Gender Information Value Date Recorded Sex Assigned at Not on file 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 Gender Identity Not on file Sexual Orientation [...] documented as of this encounter Care Teams Pancake Professional Relationship Specialty Start Date End Date John Lin MD [address] [place] [address] PCP - General 12/15/16 03/02/23 Octavio Downey MD [address] [facility] [place] [address] PCP - General Internal Medicine 03/03/23 Octavio Downey MD [address] [facility] [address] [place] [address] Referring Physician Internal Medicine 03/14/23 [place] [address] [facility] [address] [place] [address] Consulting Physician Pulmonary Disease 03/14/23 Fred Hussein MD [address] [facility] [address] [place] [address] Consulting Physician Cardiology 03/14/23 documented as of this encounter
--- OUTSIDE RECORDS SUMMARY | 2025-07-26 13:56 | XMS_ITS | Clinical Summary ---
Author Organization [facility] Address [address] [place] [address] Care Team Providers Care Crystal Machining Coordinator Name Role Phone Unavailable Primary Care Provider [...]
--- OUTSIDE RECORDS SUMMARY | 2025-07-26 13:56 | XMS_ITS | Encounter Summary ---
Author Organization 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 Not on file Not [...] documented in this encounter Plan of Treatment Not on file documented as of this encounter Procedures Procedure Name Priority Date/Time Associated Diagnosis Comments SARS-COV-2 (COVID-19) IN HOUSE Routine 02/22/2020 10:40 AM CDT documented in this encounter Results * SARS-COV-2 (COVID-19) IN HOUSE (02/22/2020 10:40 AM CDT) COVID-19 PCR Not detected Not detected, Invalid 02/22/2020 11:54 PM CDT [facility] Microbiology SPECIMEN FROM NASOPHARYNGEAL STRUCTURE / Unknown Collection / Unknown 02/22/2020 10:40 AM CDT 02/22/2020 4:21 PM CDT Narrative [facility] - 02/22/2020 11:54 PM CDT This Real Time RT-PCR assay was developed and its performance characteristics determined by [facility]. This test has been [...] LAB - MICROBIOLOGY ORDERABLES Fi nal Result [facility] [address] [place] [address], [facility] [phone] documented in this encounter Visit Diagnoses Not on filedocumented in this encounter Additional Health Concerns Infection Onset Date Last Indicated Resolved Time COVID-19 Under Investigation 02/22/2020 02/22/2020 02/22/2020 11:54 PM CDT documented as of this encounter Care Teams Finish Cleaner Relationship Specialty Start Date End Date Albert Smith DO [address] [place] [id number] PCP - General Internal Medicine 04/02/24 documented as of this encounter
--- OUTSIDE RECORDS SUMMARY | 2025-07-26 13:56 | XMS_ITS | Clinical Summary ---
Author Organization [facility] Address [address] [facility] [place] [address] Care Team Providers Care Laboratory Director Name Role Phone John Lin MD Primary Care Provider [phone] Medications No known medications Active Problems No [...] 2018 INFLUENZA VACCINE (#1) 2025 Insurance MEDICARE [employer] Care Teams Laboratory Director Relationship Specialty Start Date End Date John Lin MD [address] [place] [id number] PCP - General Internal Medicine 06/01/21
--- OUTSIDE RECORDS SUMMARY | 2025-07-26 13:56 | XMS_ITS | Clinical Summary ---
Author Organization [facility] Address [address] [place] [address] Care Team Providers Care Parcel Post Delivery Name Role Phone Octavio Downey MD Primary Care Provider + Octavio Downey MD Unavailable [phone] Cookie Voss MD Unavailable [phone] Fred Hussein MD Unavailable [phone] Allergies No known active allergies Medications furosemide [...] defibrillator in place 02/26/2020 Overview (03/03/2023): [facility] 3369-40Q [id number] Implanted 02/26/20 Dr Childs RV: [facility] 7122Q SN:[id number] 02/26/20 LV: [facility] 1458Q SN:[id number] 02/26/20 JESSICA (obstructive sleep apnea) 04/25/2019 Overview [...] Encounters Date Type Department Care Team Description 07/11/2025 12:15 PM SUPERVISOR WEAVING - 07/11/2025 11:59 PM SUPERVISOR WEAVING Hospital Encounter [facility] Diagnostic Imaging [address] [place] [address] Quan Casas MD Chronic obstructive pulmonary disease, unspecified COPD type (HCC) Discharge Disposition: Discharge to home or self care 07/11/2025 11:17 AM SUPERVISOR WEAVING - 07/11/2025 11:59 PM SUPERVISOR WEAVING Hospital Encounter [facility] Imaging and Radiology [address] [place] [address] Abdominal distension (gaseous); Anorexia; Early satiety; Acute on chronic combined systolic (congestive) and diastolic (congestive) heart failure Discharge Disposition: Discharge to home or self care 06/06/2025 11:47 AM CDT - 06/06/2025 11:59 PM CDT Hospital Encounter [facility] Radiology [address] [place] [address] Other nonspecific abnormal finding of lung field Discharge Disposition: Discharge to home or self care from Last 3 Months Surgical History Surgery Date Site/Laterality Comments [place] UNLISTED PROCEDURE ABDOME N PERITONEUM & OMENTUM [...] often do you attend chur ch or rastafarian services? Never 03/16/2023 Do you belong to any clubs o r organizations such as anabaptist groups, unions, fraternal or athletic groups, or [...] file Legal Sex Male 1:18 AM SUPERVISOR WEAVING Gender Identity Not on file Sexual Orientation [...] Abdominal Aortic Aneurysm (A AA) Screen Completed 07/11/2025, 09/09/2023, 05/19/2019 Medical Devices Implanted Type Area Longwall Shearer Operator Device Identifier Shelf Expiration Date Model / Serial / Lot Pacemaker-02/10 Implanted:01/27 (Quantity not on file) Pacemaker Left: Chest Procedures Procedure Name Priority Date/Time Associated Diagnosis Comments XR CHEST PA LATERAL 2 VIEWS Schedule Routine, Read Routine (OP Routine) 07/11/2025 12:28 PM SUPERVISOR WEAVING Chronic obstructive pulmonary disease, unspecified COPD type (HCC) CT ABDOMEN PELVIS WO CONTRAST Schedule ENOCH, Read ENOCH (Appt Today, Awaiting Results) 07/11/2025 12:22 PM SUPERVISOR WEAVING Abdominal distension (gaseous) Anorexia Early satiety Acute on chronic combined systolic (congestive) and diastolic (congestive) heart failure CT CHEST WO CONTRAST Schedule Routine, Read Routine (OP Routine) 06/06/2025 12:00 PM CDT Other nonspecific abnormal finding of lung field from Last 3 Months Results * XR Chest PA Lateral 2 Views (07/11/2025 12:28 PM SUPERVISOR WEAVING) Anatomical Region Laterality Modality Body, Chest N/A Computed Radiogr aphy 07/11/2025 2:21 PM SUPERVISOR WEAVING Impressions 07/11/2025 2:21 PM SUPERVISOR WEAVING Cardiomegaly with mild degree of vascular congestion. Electronically signed by: Major Mena M.D. Narrative 07/11/2025 2:21 PM SUPERVISOR WEAVING EXAMINATION: XR CHEST PA LATERAL 2 VIEWS HISTORY: The patient is an 79-year-old male who presents with COPD. Comparison made with the previous study dated 01/16/2025. TECHNIQUE: PA and lateral view of the chest FINDINGS: Cardiomegaly with aortic atherosclerosis. Mild degree of vascular congestion. No focal consolidation. Small right effusion. Procedure Note Major Mena MD - 07/11/2025 EXAMINATION: XR CHEST PA LATERAL 2 VIEWS HISTORY: The patient is an 79-year-old male who presents with COPD. Comparison made with the previous study dated 01/16/2025. TECHNIQUE: PA and lateral view of the chest FINDINGS: Cardiomegaly with aortic atherosclerosis. Mild degree of vascular congestion. No focal consolidation. Small right effusion. IMPRESSION: Cardiomegaly with mild degree of vascular congestion. Electronically signed by: Major Mena M.D. Quan Casas MD IMG XR PROCEDURES Estella l Result * CT Abdomen Pelvis WO Contrast (07/11/2025 12:22 PM SUPERVISOR WEAVING) Anatomical Region Laterality Modality Body N/A Computed Tomogra phy 07/11/2025 1:09 PM SUPERVISOR WEAVING Impressions 07/11/2025 1:09 PM SUPERVISOR WEAVING 1. Moderate right and small left pleural effusion. 2. Cardiomegaly, Mild to moderate ascites, mesenteric edema, and anasarca. 3. Enlarged prostate. 4. Chronic findings as above. Electronically signed by: Albert Brown II, D.O. Narrative 07/11/2025 1:09 PM SUPERVISOR WEAVING EXAMINATION: CT ABDOMEN PELVIS WO CONTRAST DATE: 07/11/2025 12:00 PM HISTORY: Abdominal distention. COMPARISON: 02/08/2024. TECHNIQUE: Transaxial computed tomographic images of the abdomen and pelvis were obtained without contrast. Multiplanar coronal and sagittal images were reformatted. FINDINGS: Moderate right and small left pleural effusion. Pacer leads are partially visualized. Redemonstration of cardiomegaly. Small hiatal hernia. Ppiq-li-xdiaalcr ascites with mesenteric edema and mild anasarca. Moderate atherosclerotic calcifications in the aorta and branch vessels. Calcified granulomas in the spleen and liver. A few simple cysts in the liver. Cholelithiasis versus biliary sludge. No evidence of cholecystitis. The spleen, pancreas, and adrenal glands are unremarkable. Subcentimeter simple cyst in the left kidney. Right kidney is unremarkable. No hydroureteronephrosis. Bladder is unremarkable. Prostate is enlarged. There is diverticulosis. No evidence of diverticulitis. Appendix is normal in size and contains an appendicolith. No evidence of small bowel obstruction. Multilevel intervertebral disc disease is noted. Procedure Note Albert Brown II, DO - 07/11/2025 EXAMINATION: CT ABDOMEN PELVIS WO CONTRAST DATE: 07/11/2025 12:00 PM HISTORY: Abdominal distention. COMPARISON: 02/08/2024. TECHNIQUE: Transaxial computed tomographic images of the abdomen and pelvis were obtained without contrast. Multiplanar coronal and sagittal images were reformatted. FINDINGS: Moderate right and small left pleural effusion. Pacer leads are partially visualized. Redemonstration of cardiomegaly. Small hiatal hernia. Wizf-jk-pdgqjiie ascites with mesenteric edema and mild anasarca. Moderate atherosclerotic calcifications in the aorta and branch vessels. Calcified granulomas in the spleen and liver. A few simple cysts in the liver. Cholelithiasis versus biliary sludge. No evidence of cholecystitis. The spleen, pancreas, and adrenal glands are unremarkable. Subcentimeter simple cyst in the left kidney. Right kidney is unremarkable. No hydroureteronephrosis. Bladder is unremarkable. Prostate is enlarged. There is diverticulosis. No evidence of diverticulitis. Appendix is normal in size and contains an appendicolith. No evidence of small bowel obstruction. Multilevel intervertebral disc disease is noted. IMPRESSION: 1. Moderate right and small left pleural effusion. 2. Cardiomegaly, Mild to moderate ascites, mesenteric edema, and anasarca. 3. Enlarged prostate. 4. Chronic findings as above. Electronically signed by: Albert Brown II, D.O. Albert Smith DO IMG CT PROCEDURES Final Re sult * CT Chest WO Contrast (06/06/2025 12:00 [...] Electronically signed by: Albert Brown II, D.O. Quan Casas MD [facility] [place]EDURES Estella l Result from Last 3 Months Insurance MEDICARE FOR LIFE MEDICARE FOR LIFE MEDICARE FOR [facility] MEDICARE Advance Directives For more information, please contact: [phone] Documents on File Type Date Recorded Patient Location Analyst Expl anation ADVANCE DIRECTIVE 03/16/2023 3:19 PM POWER OF SYSTEMS DEVELOPMENT CONSULTANT-MEDICAL ADVANCE DIRECTIVE 03/08/2023 5:06 PM POWER OF SYSTEMS DEVELOPMENT CONSULTANT-MEDICAL Power of Chemistry Manager 03/04/2023 11:54 AM * Full Code (Latest Code Status on File) Date Activated Date Inactivated Comments 12/19/2023 10:02 AM 12/19/2023 3:43 PM * Full Code Date Activated Date Inactivated Comments 03/15/2023 9:01 AM 03/24/2023 2:30 PM * Full Code Date Activated Date Inactivated Comments 03/03/2023 11:01 AM 03/15/2023 8:57 AM Care Teams Parcel Post Delivery Relationship Specialty Start Date End Date Octavio Downey MD [address] [place] [address] PCP - General Internal Medicine 03/03/23 Octavio Downey MD [address] [place] [address] Referring Physician Internal Medicine 03/14/23 [place] [address] [place] [address] Consulting Physician Pulmonary Disease 03/14/23 Fred Hussein MD [address] [facility] [address] [place] [address] Consulting Physician Cardiology 03/14/23
--- OUTSIDE RECORDS SUMMARY | 2025-07-26 13:56 | XMS_ITS | Patient Health Record ---
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 Name Role Phone Madison Stephenson Unavailable [phone] Allergies No Known Allergies Results Component Value Reference Range Notes UDT (12 Panel) Reviewed date:07/08/2025 10:20:17 AM Interpretation: Performing Lab: Notes/Report: Amphetamine (AMP) N Barbiturates (BAR) N Benzodiazepine (BZO) N Cocaine (GABBY) N Ecstasy (MDMA) N Methamphetamine (MET) N Morphine (MOP) N Methadone (MTD) N Oxycodone (OXY) N Phencyclidine (PCP) N Tricyclic Antidepressants (TCA) N Marijuana (THC) N Reason For Referral No Information Medications Medication SIG (Take, Route, Frequency, Duration) Notes Start Date End Date Status DULoxetine HCl 30 MG Capsule Delayed Release Particles 1 capsule Orally Once a day; Duration: 30 days 07/08/2025 Active Bumetanide 1 MG Tablet TAKE 2 TABLETS BY MOUTH DAILY Oral; Duration: 90 Days Active Pravastatin Sodium 40 MG Tablet 1 tablet Orally Once a day; Duration: 30 day(s) 07/08/2025 Active Dutasteride 0.5 MG Capsule 1 capsule Ora lly Once a day; Duration: 30 day(s) 07/08/2025 Active Calcitriol 0.25 MCG Capsule Oral; Duration: 90 Days Active Gemtesa 75 MG Tablet 1 tablet Orally Onc e a day; Duration: 30 day(s) 07/08/2025 Active Citalopram Hydrobromide 20 MG Tablet Oral; Duration: 90 Days Acti ve Memantine HCl 5 MG Tablet 1 tablet Orall y twice a day; Duration: 30 days 07/08/2025 Active Jardiance 10 MG Tablet Oral; Duration: 90 Days Active Midodrine HCl 5 MG Tablet Oral; Duration: 90 Days Active Social History Tobacco Use: Social History Observation Description Date Details (start date - stop date) Never Smoker NA - NA Sex Assigned At : Social History Observation Description Sex Assigned At Male Social History Social History Social Info Question Answer Notes Household: Marital Status: Number of Adults in household: 2 Number of Children in Household: 0 Household: Social Info Question Answer Notes Household Marital status: Number of adults in household: 2 Number of children in household: 1 son 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 No Drug/Alcohol: Social Info Question Answer Notes Drugs Have you used drugs other than those for medical reasons in the past 12 months? No AUDIT-C (Standard) Points 0 Interpretation Negative Did you have a drink containing alcohol in the p ast year? Yes How often did you have six or more drinks on one occasion in the past year? Never (0 point) How many drinks did you have on a typical day when you were drinking in the past year? 1 or 2 drinks (0 point) How often did you have a drink containing alcohol in the past year? Never (0 point) Caffeine Intake: 1-2 cups per day Tobacco Use: Social Info Question Answer Notes Tobacco Control (Standard) Tobacco use: Nonsmoker Additional Details Category Social Info Options Details Drug/Alcohol: Do you smoke marijuana? Den ies Do you drink alcohol? Socially Problems Problem Type SNOMED Code ICD Code Onset Dates Problem Status W/U Status Risk Notes Problem Generalized anxiety disorder (04911212) FAUSTINO (generalized anxiety disorder) (F41.1) Active confirmed Problem Chronic insomnia (601829062) Chronic insomnia (F51.04) Active confirmed Problem Memory impairment (976904557) Memory impairment (R41.3) Active confirmed Problem Severe major depression, single episode, without psychotic features (77845280) MDD (major depressive disorder), severe (F32.2) Active confirmed Vital Signs Respiratory Rate 18 /min 07/08/2025 Height-cm 177.8 cm 07/08/2025 Weight-kg 82.1 kg 07/08/2025 Height 70 in 07/08/2025 Weight 181 lbs 07/08/2025 BMI 25.97 kg/m2 07/08/2025 Encounters Encounter Location Date Provider Diagnosis [facility] [address] [address] 07/08/2025 Madison Stephenson MDD (major depressive disorder), severe F32.2 ; FAUSTINO (generalized anxiety disorder) F41.1 ; Memory impairment R41.3 and Chronic insomnia F51.04 Assessments Encounter Date Diagnosis (ICD Code) Assessment Notes Treatment Notes Treatment Clinical Notes Section Notes 07/08/2025 FAUSTINO (generalized anxiety disorder) (ICD-10 - F41.1) Learning About Generalized Anxiety Disorder material was published, Generalized Anxiety Disorder: Care Instructions material was published, Learning About Anxiety Disorders material was published, Life After Combat: Coping with an Anxiety Disorder material was published, Managing a Health Condition and Your Anxiety About It material was published 1. Depression currently on Celexa 20 mg daily - reported not helping depression- PCP prescribed - discuss may taper off in future if Cymbalta is helping discuss and education on adding Cymbalta 30 mg daily patient is seeing PCP about RLS 2. Anxiety Celexa 20 mg daily 3. Memory Impairment SLUMS= 23 Discuss SLUMS discuss and education medications options add Namenda 5 mg twice a day 4. Insomnia Sleep Hygeine- - KEEP YOUR BEDROOM DARK - GET LOTS OF NATURAL LIGHT IN THE MORNING. - DON'T WORK ON YOUR COMPUTER OR PHONE LATE AT NIGHT. - AVOID NAPS DURING THE DAY. - NO CAFFEINE 3 HOURS OR MORE AFTER WAKE UP TIME. - ONLY USE YOUR BED FOR SLEEPING - GET A RELAXATION ROUTINE BEFORE BED. - IF YOU CAN'T GET TO SLEEP AFTER 15 TO 30 MINUTES GET OUT OF BED AND DO SOMETHING RELAXING. - DON'T DRINK ALCOHOL IN THE EVENING or limit alcohol to 1 drink. Patient educated on all medications including potential benefits, side effects, risks. Educated on proper dosing schedule and importance of compliance educated on all medications, benefits, side effects and risk, and educated on depression, anxiety, and ADHD, mood d/o and educated on compliance of medications, metabolic and movement d/o education appointment's, continue therapy discussion with patient about course of treatment and patient instructions. education on serotonin syndrome Discussed and educated pt regarding benzodiazepines are generally not intended for prolonged use and that use can cause tolerance, dependence, depression, and associated memory issues including dementias (this list is not exhaustive). Benzodiazepine use is generally not recommended concurrently with pain medications and/or other controlled substances educated on all medications, benefits, side effects and risk, and educated on depression, anxiety, and ADHD, mood d/o and educated on compliance of medications, metabolic and movement d/o education appointment is, continue therapy discussion with patient about course of treatment and patient instructions. education on serotonin syndrome SSRI/SNRI side effects discussed including but not limited to, gastric upset, nausea, vomiting, diarrhea and/or constipation, weight changes, sexual side effects including loss of libido, increased suicidal thoughts/behaviors in children and young adults, and serotonin syndrome. Second generation antipsychotics (SGAs) have metabolic syndrome issues with weight gain, increase in prolactin, increased waist circumference, increased lipids, and increased glucose. Thus routine monitoring of weight, metabolic labs, etc. is indicated. A general rank ordering of antipsychotics that have the greatest to the least risk of metabolic effects is olanzapine, quetiapine, risperidone, ziprasidone, and aripiprazole. However, weight gain can occur with all of these drugs and considerable variability exists among patients receiving the same drug regarding the risk of metabolic effects. Anti-psychotic agents not only increase the risk of metabolic disorder, they also increase the risk of CVA, akathisia, and movement disorders including EPS or tardive dyskinesia (more common with first generation antipsychotics) and more. Elderly- discussed risks, cognition, sedation, falls, metabolic, movement and atypical antipsychotics carry a black-box warning for increased risk of and cerebrovascular events in dementia. Medication Management and Follow-Up - Plan: - Schedule follow-up appointments every 1-3 months to monitor the patient's response to the medication regimen. - Reinforce the importance of avoiding recreational drug use due to potential neurotoxicity and interactions with prescribed medications. 07/08/2025 MDD (major depressive disorder), severe (ICD-10 - F32.2) Learning About Depression Screening material was published, Learning About Depression material was published, Depression Treatment: Care Instructions material was published, Deciding About Stopping Your Antidepressant material was published, Learning About Mood Disorders material was published 1. Depression currently on Celexa 20 mg daily - reported not helping depression- PCP prescribed - discuss may taper off in future if Cymbalta is helping discuss and education on adding Cymbalta 30 mg daily patient is seeing PCP about RLS 2. Anxiety Celexa 20 mg daily 3. Memory Impairment SLUMS= 23 Discuss SLUMS discuss and education medications options add Namenda 5 mg twice a day 4. Insomnia Sleep Hygeine- - KEEP YOUR BEDROOM DARK - GET LOTS OF NATURAL LIGHT IN THE MORNING. - DON'T WORK ON YOUR COMPUTER OR PHONE LATE AT NIGHT. - AVOID NAPS DURING THE DAY. - NO CAFFEINE 3 HOURS OR MORE AFTER WAKE UP TIME. - ONLY USE YOUR BED FOR SLEEPING - GET A RELAXATION ROUTINE BEFORE BED. - IF YOU CAN'T GET TO SLEEP AFTER 15 TO 30 MINUTES GET OUT OF BED AND DO SOMETHING RELAXING. - DON'T DRINK ALCOHOL IN THE EVENING or limit alcohol to 1 drink. Patient educated on all medications including potential benefits, side effects, risks. Educated on proper dosing schedule and importance of compliance educated on all medications, benefits, side effects and risk, and educated on depression, anxiety, and ADHD, mood d/o and educated on compliance of medications, metabolic and movement d/o education appointment's, continue therapy discussion with patient about course of treatment and patient instructions. education on serotonin syndrome Discussed and educated pt regarding benzodiazepines are generally not intended for prolonged use and that use can cause tolerance, dependence, depression, and associated memory issues including dementias (this list is not exhaustive). Benzodiazepine use is generally not recommended concurrently with pain medications and/or other controlled substances educated on all medications, benefits, side effects and risk, and educated on depression, anxiety, and ADHD, mood d/o and educated on compliance of medications, metabolic and movement d/o education appointment is, continue therapy discussion with patient about course of treatment and patient instructions. education on serotonin syndrome SSRI/SNRI side effects discussed including but not limited to, gastric upset, nausea, vomiting, diarrhea and/or constipation, weight changes, sexual side effects including loss of libido, increased suicidal thoughts/behaviors in children and young adults, and serotonin syndrome. Second generation antipsychotics (SGAs) have metabolic syndrome issues with weight gain, increase in prolactin, increased waist circumference, increased lipids, and increased glucose. Thus routine monitoring of weight, metabolic labs, etc. is indicated. A general rank ordering of antipsychotics that have the greatest to the least risk of metabolic effects is olanzapine, quetiapine, risperidone, ziprasidone, and aripiprazole. However, weight gain can occur with all of these drugs and considerable variability exists among patients receiving the same drug regarding the risk of metabolic effects. Anti-psychotic agents not only increase the risk of metabolic disorder, they also increase the risk of CVA, akathisia, and movement disorders including EPS or tardive dyskinesia (more common with first generation antipsychotics) and more. Elderly- discussed risks, cognition, sedation, falls, metabolic, movement and atypical antipsychotics carry a black-box warning for increased risk of and cerebrovascular events in dementia. Medication Management and Follow-Up - Plan: - Schedule follow-up appointments every 1-3 months to monitor the patient's response to the medication regimen. - Reinforce the importance of avoiding recreational drug use due to potential neurotoxicity and interactions with prescribed medications. 07/08/2025 Memory impairment (ICD-10 - R41.3) 1. Depression currently on Celexa 20 mg daily - reported not helping depression- PCP prescribed - discuss may taper off in future if Cymbalta is helping discuss and education on adding Cymbalta 30 mg daily patient is seeing PCP about RLS 2. Anxiety Celexa 20 mg daily 3. Memory Impairment SLUMS= 23 Discuss SLUMS discuss and education medications options add Namenda 5 mg twice a day 4. Insomnia Sleep Hygeine- - KEEP YOUR BEDROOM DARK - GET LOTS OF NATURAL LIGHT IN THE MORNING. - DON'T WORK ON YOUR COMPUTER OR PHONE LATE AT NIGHT. - AVOID NAPS DURING THE DAY. - NO CAFFEINE 3 HOURS OR MORE AFTER WAKE UP TIME. - ONLY USE YOUR BED FOR SLEEPING - GET A RELAXATION ROUTINE BEFORE BED. - IF YOU CAN'T GET TO SLEEP AFTER 15 TO 30 MINUTES GET OUT OF BED AND DO SOMETHING RELAXING. - DON'T DRINK ALCOHOL IN THE EVENING or limit alcohol to 1 drink. Patient educated on all medications including potential benefits, side effects, risks. Educated on proper dosing schedule and importance of compliance educated on all medications, benefits, side effects and risk, and educated on depression, anxiety, and ADHD, mood d/o and educated on compliance of medications, metabolic and movement d/o education appointment's, continue therapy discussion with patient about course of treatment and patient instructions. education on serotonin syndrome Discussed and educated pt regarding benzodiazepines are generally not intended for prolonged use and that use can cause tolerance, dependence, depression, and associated memory issues including dementias (this list is not exhaustive). Benzodiazepine use is generally not recommended concurrently with pain medications and/or other controlled substances educated on all medications, benefits, side effects and risk, and educated on depression, anxiety, and ADHD, mood d/o and educated on compliance of medications, metabolic and movement d/o education appointment is, continue therapy discussion with patient about course of treatment and patient instructions. education on serotonin syndrome SSRI/SNRI side effects discussed including but not limited to, gastric upset, nausea, vomiting, diarrhea and/or constipation, weight changes, sexual side effects including loss of libido, increased suicidal thoughts/behaviors in children and young adults, and serotonin syndrome. Second generation antipsychotics (SGAs) have metabolic syndrome issues with weight gain, increase in prolactin, increased waist circumference, increased lipids, and increased glucose. Thus routine monitoring of weight, metabolic labs, etc. is indicated. A general rank ordering of antipsychotics that have the greatest to the least risk of metabolic effects is olanzapine, quetiapine, risperidone, ziprasidone, and aripiprazole. However, weight gain can occur with all of these drugs and considerable variability exists among patients receiving the same drug regarding the risk of metabolic effects. Anti-psychotic agents not only increase the risk of metabolic disorder, they also increase the risk of CVA, akathisia, and movement disorders including EPS or tardive dyskinesia (more common with first generation antipsychotics) and more. Elderly- discussed risks, cognition, sedation, falls, metabolic, movement and atypical antipsychotics carry a black-box warning for increased risk of and cerebrovascular events in dementia. Medication Management and Follow-Up - Plan: - Schedule follow-up appointments every 1-3 months to monitor the patient's response to the medication regimen. - Reinforce the importance of avoiding recreational drug use due to potential neurotoxicity and interactions with prescribed medications. 07/08/2025 Chronic insomnia (ICD-10 - F51.04) Insomnia: Care Instructions material was published, Learning About Sleeping Well material was published 1. Depression currently on Celexa 20 mg daily - reported not helping depression- PCP prescribed - discuss may taper off in future if Cymbalta is helping discuss and education on adding Cymbalta 30 mg daily patient is seeing PCP about RLS 2. Anxiety Celexa 20 mg daily 3. Memory Impairment SLUMS= 23 Discuss SLUMS discuss and education medications options add Namenda 5 mg twice a day 4. Insomnia Sleep Hygeine- - KEEP YOUR BEDROOM DARK - GET LOTS OF NATURAL LIGHT IN THE MORNING. - DON'T WORK ON YOUR COMPUTER OR PHONE LATE AT NIGHT. - AVOID NAPS DURING THE DAY. - NO CAFFEINE 3 HOURS OR MORE AFTER WAKE UP TIME. - ONLY USE YOUR BED FOR SLEEPING - GET A RELAXATION ROUTINE BEFORE BED. - IF YOU CAN'T GET TO SLEEP AFTER 15 TO 30 MINUTES GET OUT OF BED AND DO SOMETHING RELAXING. - DON'T DRINK ALCOHOL IN THE EVENING or limit alcohol to 1 drink. Patient educated on all medications including potential benefits, side effects, risks. Educated on proper dosing schedule and importance of compliance educated on all medications, benefits, side effects and risk, and educated on depression, anxiety, and ADHD, mood d/o and educated on compliance of medications, metabolic and movement d/o education appointment's, continue therapy discussion with patient about course of treatment and patient instructions. education on serotonin syndrome Discussed and educated pt regarding benzodiazepines are generally not intended for prolonged use and that use can cause tolerance, dependence, depression, and associated memory issues including dementias (this list is not exhaustive). Benzodiazepine use is generally not recommended concurrently with pain medications and/or other controlled substances educated on all medications, benefits, side effects and risk, and educated on depression, anxiety, and ADHD, mood d/o and educated on compliance of medications, metabolic and movement d/o education appointment is, continue therapy discussion with patient about course of treatment and patient instructions. education on serotonin syndrome SSRI/SNRI side effects discussed including but not limited to, gastric upset, nausea, vomiting, diarrhea and/or constipation, weight changes, sexual side effects including loss of libido, increased suicidal thoughts/behaviors in children and young adults, and serotonin syndrome. Second generation antipsychotics (SGAs) have metabolic syndrome issues with weight gain, increase in prolactin, increased waist circumference, increased lipids, and increased glucose. Thus routine monitoring of weight, metabolic labs, etc. is indicated. A general rank ordering of antipsychotics that have the greatest to the least risk of metabolic effects is olanzapine, quetiapine, risperidone, ziprasidone, and aripiprazole. However, weight gain can occur with all of these drugs and considerable variability exists among patients receiving the same drug regarding the risk of metabolic effects. Anti-psychotic agents not only increase the risk of metabolic disorder, they also increase the risk of CVA, akathisia, and movement disorders including EPS or tardive dyskinesia (more common with first generation antipsychotics) and more. Elderly- discussed risks, cognition, sedation, falls, metabolic, movement and atypical antipsychotics carry a black-box warning for increased risk of and cerebrovascular events in dementia. Medication Management and Follow-Up - Plan: - Schedule follow-up appointments every 1-3 months to monitor the patient's response to the medication regimen. - Reinforce the importance of avoiding recreational drug use due to potential neurotoxicity and interactions with prescribed medications. 07/08/2025 Other Learning About Depression Screening material was printed, Duloxetine material was published, Memantine material was published Notes: referral to the local [facility] or national office of the Alzheimer's Association ( ; http://www.alz.or g), the Alzheimer's Disease Education and Referral Center (ADEAR) ( ; http://www.meeta.[facility].gov/Alzheimers/ ), Notes: referral to the local [facility] or national office of the Alzheimer's Association ( ; http://www.alz.or g), the Alzheimer's Disease Education and Referral Center (ADEWV) ( ; http://www.meeta. h.gov/Alzheimers/ ), referral to the local [facility] or [facility] office of the Alzheimer's Association ( ; http://www.Micropelt.or g), the Alzheimer's Disease Education and Referral Center (ADEAR) ( ; http://www.meeta. h.gov/Alzheimers/ ), 1. Depression currently on Celexa 20 mg daily - reported not helping depression- PCP prescribed - discuss may taper off in future if Cymbalta is helping discuss and education on adding Cymbalta 30 mg daily patient is seeing PCP about RLS 2. Anxiety Celexa 20 mg daily 3. Memory Impairment SLUMS= 23 Discuss SLUMS discuss and education medications options add Namenda 5 mg twice a day 4. Insomnia Sleep Hygeine- - KEEP YOUR BEDROOM DARK - GET LOTS OF NATURAL LIGHT IN THE MORNING. - DON'T WORK ON YOUR COMPUTER OR PHONE LATE AT NIGHT. - AVOID NAPS DURING THE DAY. - NO CAFFEINE 3 HOURS OR MORE AFTER WAKE UP TIME. - ONLY USE YOUR BED FOR SLEEPING - GET A RELAXATION ROUTINE BEFORE BED. - IF YOU CAN'T GET TO SLEEP AFTER 15 TO 30 MINUTES GET OUT OF BED AND DO SOMETHING RELAXING. - DON'T DRINK ALCOHOL IN THE EVENING or limit alcohol to 1 drink. Patient educated on all medications including potential benefits, side effects, risks. Educated on proper dosing schedule and importance of compliance educated on all medications, benefits, side effects and risk, and educated on depression, anxiety, and ADHD, mood d/o and educated on compliance of medications, metabolic and movement d/o education appointment's, continue therapy discussion with patient about course of treatment and patient instructions. education on serotonin syndrome Discussed and educated pt regarding benzodiazepines are generally not intended for prolonged use and that use can cause tolerance, dependence, depression, and associated memory issues including dementias (this list is not exhaustive). Benzodiazepine use is generally not recommended concurrently with pain medications and/or other controlled substances educated on all medications, benefits, side effects and risk, and educated on depression, anxiety, and ADHD, mood d/o and educated on compliance of medications, metabolic and movement d/o education appointment is, continue therapy discussion with patient about course of treatment and patient instructions. education on serotonin syndrome SSRI/SNRI side effects discussed including but not limited to, gastric upset, nausea, vomiting, diarrhea and/or constipation, weight changes, sexual side effects including loss of libido, increased suicidal thoughts/behaviors in children and young adults, and serotonin syndrome. Second generation antipsychotics (SGAs) have metabolic syndrome issues with weight gain, increase in prolactin, increased waist circumference, increased lipids, and increased glucose. Thus routine monitoring of weight, metabolic labs, etc. is indicated. A general rank ordering of antipsychotics that have the greatest to the least risk of metabolic effects is olanzapine, quetiapine, risperidone, ziprasidone, and aripiprazole. However, weight gain can occur with all of these drugs and considerable variability exists among patients receiving the same drug regarding the risk of metabolic effects. Anti-psychotic agents not only increase the risk of metabolic disorder, they also increase the risk of CVA, akathisia, and movement disorders including EPS or tardive dyskinesia (more common with first generation antipsychotics) and more. Elderly- discussed risks, cognition, sedation, falls, metabolic, movement and atypical antipsychotics carry a black-box warning for increased risk of and cerebrovascular events in dementia. Medication Management and Follow-Up - Plan: - Schedule follow-up appointments every 1-3 months to monitor the patient's response to the medication regimen. - Reinforce the importance of avoiding recreational drug use due to potential neurotoxicity and interactions with prescribed medications. Plan Of Treatment Next Appt Details Provider Name:Madison Stephenson , 07/29/2025 01:15:00 PM, [address] [address], [address], [place], [address], Insurance Providers Payer Name Payer Address Payer Phone Subscriber Number Group Number Insured Name Patient Relationship to Insured Coverage Start Date Coverage End Date [place] Medicare [address] [place] [phone] [id number] Winston Valles Self - patient is the insured [employer] - Supplement [address] [address] [place] [address] [id number] Winston Valles Self - patient is the insured Medical (General) History Medical History History ICD Code Past Psychiatric History: Anxiety Disord er abdominal aortic aneurysm: No atrial fibrillation: Yes chronic fatigue syndrome: No essential tremor: No hyperlipidemia: No hypertension: Yes Parkinson's disease: No restless leg syndrome: Yes stroke: No subdural hematoma: Yes type 1 diabetes mellitus: No type 2 diabetes mellitus: No vitamin B12 deficiency: No vitamin D deficiency: No Surgical History Surgery Date(Month/Year) Open heart 2020 [id number]
--- OUTSIDE RECORDS SUMMARY | 2025-07-26 13:56 | XMS_ITS | Encounter Summary ---
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 Gender Identity Not on file Sexual Orientation [...] documented as of this encounter Care Teams Test Tube Maker Relationship Specialty Start Date End Date John Lin MD [address] [place] [address] PCP - General 12/15/16 03/02/23 Octavio Downey MD [address] [place] [address] PCP - General Internal Medicine 03/03/23 Octavio Downey MD [address] [place] [address] Referring Physician Internal Medicine 03/14/23 [place] [address] [place] [address] Consulting Physician Pulmonary Disease 03/14/23 Fred Hussein MD [address] [place] [address] Consulting Physician Cardiology 03/14/23 documented as of this encounter
--- OUTSIDE RECORDS SUMMARY | 2025-07-26 13:56 | XMS_ITS | Clinical Summary ---
Author Organization [facility] Address [address] [place] [address] Care Team Providers Care Seed Analyst Name Role Phone Albert Smith DO Primary Care Provider [phone] Source Comments [facility],non-owned Affiliates and Associated Physician Practices is amultiple site organization consisting of ambulatory clinics and hospital sitesin [place], [place], [place] and [place]. This disclosure is being madepursuant to the Care Everywhere program and may not contain all information available regarding this patient. 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 11/01/2019 Overview (11/22/2019): 06/14 [...] new focal RWMAs, severe LAE, mild BRIANDA, effl-yl-raylidvn MR, mild AI/TR/PI, RVSP 38, no pericardial [...] 11/01/2019 Borderline high blood pressure 07/15/2017 07/15/2017 Immunizations Immunization Administration Dates Next Due INFLUENZA [...] 0 Q uit: 08/29/1979 Smokeless Tobacco: Never Tobacco [...] 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 Not on file Not on angela e Last Filed Vital Signs Vital Sign Reading Time Taken Comments Blood Pressure 120/70 06/27/2020 2:49 PM CDT Pulse 62 06/27/2020 2:49 PM CDT Temperature 37.1 C (98.7 F) 11/01/2019 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 Respiratory Rate 10 05/09/2020 3:19 PM CDT Oxygen Saturation 98% 06/27/2020 2:49 PM CDT Inhaled Oxygen Concentration - - Weight 77.1 kg (170 lb) 04/02/2024 2:31 PM CDT Height 177.8 cm (5' 10) 04/02/2024 2:31 PM CDT Body Mass Index 24.39 04/02/2024 2:31 PM CDT Plan of Treatment Health Maintenance Due Date Last Done Comments MEDICARE AWV 12 MONTHS 1945 DTAP/TDAP/TD VACCINES (1 - Tdap) 1962 PNEUMOCOCCAL VACCINE 50+ (1 of 1 - PCV) 1993 ZOSTER VACCINE (1 of 2) 1993 Respiratory Syncytial Virus (RSV) Vaccine Pt: or over 60 yrs (1 - 1-dose 75+ series) 2018 COVID-19 VACCINE (6 - 2024- season) 2025 08/10/2022, 11/25/2021, 05/23/2021, Additional history exists INFLUENZA VACCINE (#1) 2025 , 06/23/2021, 05/10/2020, Additional history exists DEPRESSION SCREENING Completed 10/01/2024, 04/02/20 HEPATITIS B VACCINE Aged Out No longe [...] A/C/Y/W VACCINE Aged Out No longer eligible based on patient's age to complete this topic Insurance [employer] MEDICARE MEDICARE [facility] [place] MEDICARE [facility] [place] Advance Directives * Full Code (Latest Code Status on File) Date Activated Date Inactivated Comments 05/19/2019 4:57 PM 05/23/2019 2:03 PM Care Teams Seed Analyst Relationship Specialty Start Date End Date Albert Smith DO [address] [place] [id number] PCP - General Internal Medicine 04/02/24
[2025-07-27 18:54] LABS: Hematocrit 52.8 % (42.0-52.0); Hemoglobin 16.4 g/dL (14.0-18.0); Immature Granulocyte Percent A 0.2 % (0-0.5); Immature Platelet Fraction Pct 8.5 % (0.9-11.2); Lymphocytes Absolute Auto 0.62 K/mm3 (0.9-3.2); Mean Corpuscular HGB Conc 31.1 g/dl (32-36); Mean Corpuscular Hemoglobin 29.5 pg (26-34); Mean Corpuscular Volume 95.0 fl (80-100); Nucleated Red Blood Cells Absolute Auto 0.000 K/mm3 (0.0-0.012); Nucleated Red Blood Cells Perc 0.0 % (0.0-0.2); Platelet Count Result 93 k/mm3 (150-375); Red Blood Count 5.56 M/mm3 (4.6-6.20); White Blood Count 8.2 K/mm3 (4.5-10.0)
[2025-07-27 19:04] LABS: Alanine Aminotransferase 36 U/L (6-50); Albumin Level 4.1 g/dL (3.5-5.1); Alkaline Phosphatase 64 U/L (38-126); Anion Gap 7 mmol/L (4-12); Aspartate Amino Transferase 45 U/L (17-59); Bilirubin,Total 2.2 mg/dL (0.2-1.3); Blood Urea Nitrogen 45 mg/dL (9-20); Calcium 8.9 mg/dL (8.4-10.2); Carbon Dioxide 31 mmol/L (22-30); Chloride 100 mmol/L (98-107); Estimated Glomerular Filt Rate 36; Glucose 87 mg/dL (65-110); Magnesium 3.1 mg/dL (1.6-2.3); Potassium 4.7 mmol/L (3.4-5.0); Sodium 138 mmol/L (137-145); Total Protein 6.7 g/dL (6.3-8.2)
[2025-07-27 19:29] LABS: Burr Cells 1+; Schistocytes None Seen
[2025-07-27 20:06] LABS: Prostate Specific Antigen 3.9 ng/mL (< OR = 4.0)
[2025-07-30 11:08] LABS: Free Testosterone (Direct) 3.4 pg/mL (6.6-18.1)
== END 2025-07-26 13:51 | disposition home or self-care (01) ==
LOC: ANHGOSHLAB 13:51
PROVIDERS: PCP Internal Medicine; Visit Provider Internal Medicine Nephrology
DX: E29.1 Testicular hypofunction (principal); I12.9 Hypertensive chronic kidney disease with stage 1 through stage 4 chronic kidney disease, or unspecified chronic kidney disease; N18.32 Chronic kidney disease, stage 3b; D69.6 Thrombocytopenia, unspecified
CPT/HCPCS: 36415; 80053; 83735; 84153; 84402; 84403; 85025; 85055

== ENCOUNTER 2025-07-30 14:33 | Outpatient (CLI) | payer MEDICARE, OTHER, SELFPAY ==
--- NOTE | ~2025-07-30 | XR_ITS ---
XR abdomen/kub 1V 07/30/2025 14:53 INDICATION: Flank pain TECHNIQUE: KUB COMPARISON: None FINDINGS: Bowel gas pattern is normal. There is no evidence of free air, mass, organomegaly, ascites or obstruction. No abnormal calculi are seen. The bones appear intact. Moderate lumbar spondylosis with levoscoliosis. There is osteoarthritis of the hips. IMPRESSION: 1: No acute abdominal abnormality identified. Reviewed, dictated and finalized at location I. FIXER
== END 2025-07-30 14:34 | disposition home or self-care (01) ==
LOC: GOSHIMG 14:33
PROVIDERS: PCP Internal Medicine; Visit Provider Internal Medicine
DX: R14.0 Abdominal distension (gaseous) (principal)
CPT/HCPCS: 74018